=== PATIENT | female | born 1935 | race Caucasian/White ===

== ENCOUNTER 2016-09-06 13:02 | Inpatient (IN) | payer MEDICARE, BC ==
[~2016-09-06] VITALS: Ht 165.1 cm; Wt 90.0 kg
[~2016-09-06 13:02] MED LIST: ADLT ASA LOW81 MG PO; ADVAIR DISK1 INH; ADVAIR DISKU PO; ADVAIR HF1 INH; ADVAIR HFA; ALBUTEROL S2.5 MG/.5 IN; ALPHA LIPOIC100 MG PO; AMIODARONE200 MG PO; AREDS 2 PO; ASA/BUT/CAF1; BENAZEPRIL5 M1 PO; BENAZEPRIL5 MG PO; BUMETANIDE1 MG PO; CALCIUM 500 + D PO; CETIRIZINE PO; CINNAMON500 MG PO; CIPROFLOXACN500 MG PO; CLARITIN10 MG PO; COQ-10100 MG PO; COQ-10200 MG PO; COQ10200 MG OR; COUMADIN1 MG PO; COUMADIN5 MG PO; COUMADIN7.5 MG PO; CYANOCOBALAM1000 MCG IM; DILTIAZEM CD120 MG PO; DILTIAZEM HCL360 M2 PO; DILTIAZEM HCL360 MG PO; DILTIAZEM120 MG PO; DOXYCYCL HYC100 MG OR; FISH OIL1000 MG PO; FLAGYL ER750 MG PO; FLEXERIL PO; FLONASE 60 DOS0.05 %; FLONASE NASAL50 MCG; GABAPENTIN300 MG PO; GABAPENTIN600 MG PO; GLIPIZIDE ER2.5 MG PO; HUMALOG100 MG/ML SC; IMDUR60 MG PO; ISOSORB MONO120 MG PO; ISOSORB MONO30 MG PO; JANUVIA50 MG PO; KLOR-CON 1010 ME1 PO; LASIX 20 MG20 MG/TAB PO; LEVAQUIN500 MG PO; LORTAB 7.57.5 MG PO; LOSARTAN POT50 MG PO; MACROBID100 MG PO; METFORMIN HCL1000 MG PO; METFORMIN500 M1 PO; METFORMIN500 M2 PO; METO25TAB PO; METO50TA52 PO; METOPROL TAR25 MG PO; MOBIC7.5 MG PO; NITROLINGUAL SPRAY D IN; NORVASC2.5 M1 PO; NOVOLIN N1 ML SC; NOVOLO1 SC; NOVOLOG MIX100 U/ML SC; NYSTATIN100000 M3 TOP; OCUVITE PO; PEPCID20 MG PO; PLAVIX75 MG PO; PRAVACHOL20 MG PO; PRAVACHOL80 MG PO; PRAVASTATIN20 MG PO; PRAVASTATIN40 MG PO; PRESERVISION AREDS PO; PRESERVISION PO; PRESERVISION/LUTEIN PO; PRILOSEC40 MG PO; PROAIR HFA IN; PROCRIT4000 UNIT/ SC; PROVENTIL HFA; PROVENTIL HFA IN; SEPTRA DS1 TAB PO; SILVADENE1 % EX; STATINS; SYNTHROID125 MCG PO; SYNTHROID200 MCG; SYNTHROID200 MCG PO; TRICOR145 MG PO; ULTRAM50 MG PO; VITAMIN D2000 UNI1 PO; VITAMIN D50000 UNIT PO; ZANTAC 150 PO; ZETIA10 MG PO; ZOFRAN ODT4 MG SL; ZYRTEC10 M2 PO; ZYRTEC10 MG PO; [UNRECOGNIZED DRUG - OTHER] PO; [UNRECOGNIZED DRUG - OTHER] SL; [UNRECOGNIZED DRUG - SUPPLY]
[2016-09-06 13:15] VITALS: BP 148/74
--- NOTE | 2016-09-06 13:22 | NUR ---
PT ARRIVED ON UNIT VIA W/C, ALERT AND ORIENTED X 3, ORIENTED TO ROOM AND CALL URIAS, SETTLED IN BED, TELE MONITOR PLACED, C/O LOWER BACK PAIN @ 04/14, WILL CONTINUE TO MONITOR.
[2016-09-06 14:27] LABS: HEMATOCRIT 30.6 % (37.0-47.0); HEMOGLOBIN 9.6 g/dl (12.0-16.0); MEAN CORPUSCULAR HGB 31.1 pG CALC (26.0-32.0); MEAN CORPUSCULAR HGB CONC 31.4 g/L CALC (32.0-36.0); RED BLOOD COUNT 3.09 mill/uL (4.20-5.60); RED CELL DISTRI WIDTH 13.2 % (11.5-15.5)
[2016-09-06 14:41] LABS: ALBUMIN 3.9 g/dL (3.2-5.0); BILIRUBIN, TOTAL 0.3 mg/dL (0.0-1.4); CALCIUM 9.4 mg/dL (8.4-10.2); CREATININE 2.1 mg/dL (0.5-1.0); POTASSIUM 4.6 mmol/l (3.5-5.1); TOTAL PROTEIN 7.1 g/dL (6.3-8.2)
--- NOTE | 2016-09-06 16:29 | NUR ---
PT WENT OFF UNIT FOR PROCEDURE AND RETURNED WITH LARGE HEMATOMA TO [facility] WHERE IV CATHETER HAD BEEN PREVIOUSLY PLACED, STATED SHE BUMPED HAND ON CHAIR DURING TRANSFER. WARM COMPRESS APPLIED TO SITE, WILL CONTINUE TO MONITOR.
[2016-09-06] MEDS ORDERED: WARFARIN2.5 MG PO (17:21)
[2016-09-06] MEDS ORDERED: KLOR-CON 1010 MEQ PO (17:30)
[2016-09-06] MEDS ORDERED: AMLODIPINE5 MG PO (17:30)
[2016-09-06] MEDS ORDERED: HYDROCO/APAP1 TA9 PO (17:31)
[2016-09-06] MEDS ORDERED: LEXAPRO10 MG PO (17:34)
[2016-09-06] MEDS ORDERED: SINEMET 10/1001 TAB PO (17:34)
[2016-09-06] MEDS ORDERED: PRILOSEC20 MG PO (17:34)
[2016-09-06 19:24] VITALS: BP 125/56
--- NOTE | 2016-09-06 20:00 | NUR ---
PATIENT RESTING IN BED AT THIS TIME. AWAKE ALERT AND ORIENTEDX3. PATIENT WITH HEP LOCK TO RIGHT HAND-SITE APPEARS HEALTHY AT THIS TIME. INSTRUCTED PATIENT THAT WE NEED URINE SPEC WHEN SHE IS ABLE TO PROVIDE. VERBALIZES UNDERSTANDING. SAFETY PRECAUTIONS REINFORCED. CALL LIGHT IN REACH. WILL CONT TO MONITOR.
--- NOTE | 2016-09-06 23:23 | NUR ---
URINE SPEC OBTAINED AND SENT TO LAB. PATIENT IS VOIDING YELLOW URINE. NO COMPLAINTS AT THIS TIME. CALL LIGHT IN REACH. WILL CONT TO MONITOR.
[2016-09-06 23:24] VITALS: BP 104/60
[2016-09-07 01:00] LABS: URINE BILIRUBIN - DIPSTICK NEGATIVE (NEGATIVE); URINE BLOOD DIPSTICK TRACE-INTACT (NEGATIVE); URINE CLARITY TURBID; URINE COLOR YELLOW; URINE GLUCOSE - DIPSTICK NEGATIVE (NEGATIVE); URINE KETONE NEGATIVE (NEGATIVE); URINE LEUK ESTERASE MODERATE (Negative); URINE NITRITE - DIPSTICK POSITIVE (Negative); URINE PROTEIN - DIPSTICK TRACE mg/dL (NEG-TRACE); URINE UROBILINOGEN - DIPSTICK 0.2 E.U./dL (0.2)
--- NOTE | 2016-09-07 01:47 | NUR ---
PATIENT RESTING IN BED-C/O SEVERE BACK AND LOWER EXTREMITY PAIN. 8/10 ON PAIN SCALE. PATIENT MEDICATED WITHLORTAB 5/325MG PO ORDERED. SAFETY PRECAUTIONS REINFORCED. CALL LIGHT IN REACH. WILL CONT TO MONITOR
[2016-09-07 01:55] LABS: URINE BACTERIA MANY hpf; URINE SQUAMOUS EPITHELIAL CELL FEW EPI/hpf (0-FEW); URINE WBC 50-100 WBC/hpf (0-5)
[2016-09-07 03:47] VITALS: BP 124/63
--- NOTE | 2016-09-07 04:00 | NUR ---
PATIENT APPEARS SLEEPING ON HER SIDE. CALL LIGHT IN REACH. WILL CONT TO MONITOR.
[2016-09-07 06:05] LABS: HEMATOCRIT 28.3 % (37.0-47.0); HEMOGLOBIN 8.9 g/dl (12.0-16.0); MEAN CELL VOLUME 100.4 fL CALC (80.0-100.0); MEAN CORPUSCULAR HGB 31.6 pG CALC (26.0-32.0); MEAN CORPUSCULAR HGB CONC 31.4 g/L CALC (32.0-36.0); RED BLOOD COUNT 2.82 mill/uL (4.20-5.60); RED CELL DISTRI WIDTH 13.2 % (11.5-15.5)
--- NOTE | 2016-09-07 07:22 | NUR ---
REPORT RECEIVED FROM WOLFGANG TURNER. PT SUPINE IN BED. DENIES PAIN. REPORTING OF CONCERNS ENCOURAGED. VSS. ASSESSMENT COMPLETED AT THIS TIME. PLAN OF CARE DISCUSSED. CALL LIGHT REVIEWED AND IN REACH. FALL PRECAUTIONS REINFORCED. PT STATES UNDERSTANDING.
[2016-09-07 07:29] VITALS: BP 128/56
[2016-09-07 08:35] LABS: INTERNATIONAL NORMALIZED RATIO 4.1 RATIO (0.7-1.3)
[2016-09-07 08:36] LABS: PROTHROMBIN TIME 48.3 SECONDS (9.0-12.5)
[2016-09-07 10:29] LABS: CALCIUM 9.3 mg/dL (8.4-10.2); CREATININE 1.7 mg/dL (0.5-1.0); POTASSIUM 4.4 mmol/l (3.5-5.1)
[2016-09-07 11:46] VITALS: BP 108/45
--- NOTE | 2016-09-07 12:15 | NUR ---
PT SITTING IN CHAIR AT BEDSIDE. DENIES PAIN. REPORTS NAUSEA IMPROVED SINCE PHENERGAN PO ADMINISTRATION. CALL LIGHT WITHIN REACH.
[2016-09-07 16:08] VITALS: BP 132/46
[2016-09-07 16:49] LABS: CHOLESTEROL HDL RATIO 4.3 (<4.4 (CALC))
--- NOTE | 2016-09-07 17:43 | NUR ---
PT'S HOME MEDS SENT HOME WITH PT'S DAUGHTER.
[2016-09-07 19:25] VITALS: BP 140/66
--- NOTE | 2016-09-07 19:40 | NUR ---
PT OOB AMBULATING IN ROOM WITH STEADY GAIT. A/O X3, DENIES PAIN. ORIENTED TO USE CALL LIGHT FOR ASSISTANCE, WILL CONTINUE TO MONITOR.
[2016-09-07 23:25] VITALS: BP 123/52
--- NOTE | 2016-09-08 00:33 | NUR ---
PT RESTING IN BED WITH EYES CLOSED, RESPIRATIONS EVEN AND UNLABORED. CALL LIGHT IN REACH. DENIES PAIN.
[2016-09-08 01:11] VITALS: BP 175/102
[2016-09-08 04:30] VITALS: BP 149/66
[2016-09-08 05:48] LABS: INTERNATIONAL NORMALIZED RATIO 5.5 RATIO (0.7-1.3)
[2016-09-08 05:49] LABS: CALCIUM 9.1 mg/dL (8.4-10.2); CREATININE 1.6 mg/dL (0.5-1.0); HEMATOCRIT 27.8 % (37.0-47.0); HEMOGLOBIN 8.7 g/dl (12.0-16.0); MEAN CELL VOLUME 99.6 fL CALC (80.0-100.0); MEAN CORPUSCULAR HGB 31.2 pG CALC (26.0-32.0); MEAN CORPUSCULAR HGB CONC 31.3 g/L CALC (32.0-36.0); POTASSIUM 4.6 mmol/l (3.5-5.1); RED BLOOD COUNT 2.79 mill/uL (4.20-5.60); RED CELL DISTRI WIDTH 13.2 % (11.5-15.5)
--- NOTE | 2016-09-08 06:34 | NUR ---
OOB AMBULATING TO BATHROOM WITH STEADY GAIT SHORTLY AFTER PT CALLING FOR ASSISTANCE STATES IV JUST CAME OUT. IV TO RH FOUND DISLODGED WITH CATH TIP INTACT, BLEEDING NOTICED, PRESSURE APPLIED TO RH.
--- NOTE | 2016-09-08 07:00 | NUR ---
SHIFT CHANGE REPORT FROM SEHLBY LUND AWAKE ALERT AND ORIENTED SITTING UP AT BEDSIDE, NO C/O DISCOMFORT, IV ABT INFUSING, CALL URIAS IN REACH.
--- NOTE | 2016-09-08 08:15 | NUR ---
DISCUSSED DIET WITH PT AND ADDRESSED WITH MD, PT READY TO TOLERATE SOLID FOODS, FOOD ORDERED AND PT TOLERATED WELL.
[2016-09-08 09:02] VITALS: BP 129/63
--- NOTE | 2016-09-08 12:00 | NUR ---
SITTING UP AT BEDSIDE HAVING MEAL, ALL NEEDS ADDRESSED, CALL URIAS IN REACH.
--- NOTE | 2016-09-08 13:44 | NUR ---
PATIENT AMBULATED WITH QUAD CANE TO THE HALLWAY 75 FEET X 2 AND PERFORMED SUPINE EXERCISES IN BED WHILE MONITORING FOR 02 SATURATION. SHE WAS ABLE TO TOLERATE THE TREATMENT SESSION WITHOUT DISTRESS. PATIENT WAS GIVEN CONTACT GUARD DURING GAIT AND STANDBY ASSIST IN TRANSFERS. WEAKNESS OF THE LOWER EXTREMITIES DURING THEREX WAS NOTED WITH DECONDITIONING. NO ADVERSE EFFECTS HAPPENED.
[2016-09-08 15:55] VITALS: BP 132/67
--- NOTE | 2016-09-08 16:00 | NUR ---
RESTING IN BED FAMILY MEMBERS AND FRIENDS VISITING, ALL NEEDS ADDRESSED, CALL URIAS IN REACH.
[2016-09-08 19:10] VITALS: BP 140/67
--- NOTE | 2016-09-08 20:10 | NUR ---
SITTING ON SIDE OF BED TALKING WITH FAMILY MEMBERS. A/O X3, DENIES PAIN OR DISCOMFORT. ENCOURAGED TO USE CALL LIGHT FOR ASSISTANCE, WILL CONTINUE TO MONITOR.
[2016-09-08 20:56] LABS: HEMATOCRIT 31.1 % (37.0-47.0); HEMOGLOBIN 9.9 g/dl (12.0-16.0); MEAN CELL VOLUME 98.7 fL CALC (80.0-100.0); MEAN CORPUSCULAR HGB 31.4 pG CALC (26.0-32.0); MEAN CORPUSCULAR HGB CONC 31.8 g/L CALC (32.0-36.0); RED BLOOD COUNT 3.15 mill/uL (4.20-5.60); RED CELL DISTRI WIDTH 13.3 % (11.5-15.5)
[2016-09-09 00:08] VITALS: BP 156/65
--- NOTE | 2016-09-09 01:24 | NUR ---
PT RESTING ON LEFT SIDE WITH EYES CLOSED, RESPIRAITONS EVEN AND UNLABORED. CALL LIGHT IN REACH.
--- NOTE | 2016-09-09 01:35 | NUR ---
PT C/O TELE ELECTRODES FEELING ITCHY, ROBERTO KRUSE REMOVED ELECTRODES AND HELPED PT WASH CHEST, REFUSES SHOWER AT THIS TIME. NEW ELECTRODES APPLIED.
[2016-09-09 03:20] VITALS: BP 149/64
--- NOTE | 2016-09-09 05:28 | NUR ---
MORNING BLOOD WORK DRAW BY COMPUTER APPLICATIONS INSTRUCTOR, TOLERATED WELL.
[2016-09-09 06:05] LABS: INTERNATIONAL NORMALIZED RATIO 1.9 RATIO (0.7-1.3)
[2016-09-09 06:09] LABS: CALCIUM 9.1 mg/dL (8.4-10.2); CREATININE 1.8 mg/dL (0.5-1.0); POTASSIUM 4.4 mmol/l (3.5-5.1)
--- NOTE | 2016-09-09 07:00 | NUR ---
RECEIVED BEDSIDE REPORT FROM ASHELY JARQUIN. SITTING ON EDGE OF BED. RESPS EVEN AND UNLABORED ON ROOM AIR, TELE MONITOR IN PLACE. DENIES PAIN OR DISCOMFORT. PLAN OF CARE DISCUSSED. SAFETY PRECAUTIONS REINFORCED. BED IN LOWEST POSITION WITH WHEELS LOCKED. CALL LIGHT WIHTIN REACH. ENCOURAGED PT TO CALL FOR ANY NEEDS.
[2016-09-09 07:42] VITALS: BP 144/59
[2016-09-09 11:09] VITALS: BP 142/45
--- NOTE | 2016-09-09 12:00 | NUR ---
SITTING IN BEDSIDE CHAIR. RESPS EVEN AND UNLABORED ON ROOM AIR, TELE MONITOR IN PLACE. FAMILY AT BEDSIDE. DENIES PAIN OR DISCOMFORT. REPORTS 13 EPISODES OF DIARRHEA SINCE THIS AM. CALL LIGHT WITHIN REACH. WILL CONTINUE TO MONITOR.
--- NOTE | 2016-09-09 15:50 | NUR ---
DR ZEPEDA IN WITH PT, NEW ORDERS RECEIVED.
[2016-09-09 16:21] VITALS: BP 133/63
[2016-09-09 17:30] LABS: C. DIFFICILE TOXIN A&B NEGATIVE (NEGATIVE)
[2016-09-09 19:20] VITALS: BP 131/68
--- NOTE | 2016-09-09 19:45 | NUR ---
PATIENT SITTING UP ON THE SIDE OF THE BED WITH VISITOR AT BEDSIDE. PATIENT IS AWAKE ALERT AND ORIENTEDX3. PATIENT WITH NO COMPLAINTS AT THIS TIME. LEFT HAND ECCYMOTIC. LEFT FOREARM HEP LOCK INTACT AND APPEARS HEALTHY AT THIS TIME. SAFETY PRECAUTIONS REINFORCED. CALLL LIGHT IN REACH. WILL CONT TO MONITOR.
--- NOTE | 2016-09-09 23:57 | NUR ---
PATIENT APPEARS SLEEPING AT THIS TIME WITH EYES CLOSED. CALL LIGHT IN REACH. WILL CONT TO MONITOR.
[2016-09-10 00:37] VITALS: BP 111/68
--- NOTE | 2016-09-10 04:00 | NUR ---
PATIENT APPEARS SLEEPING WITH SHEETS OVER HER HEAD. CALL LIGHT IN REACH. WILL CONT TO MONITOR.
[2016-09-10 04:49] LABS: HEMATOCRIT 28.1 % (37.0-47.0); HEMOGLOBIN 8.8 g/dl (12.0-16.0); MEAN CELL VOLUME 99.3 fL CALC (80.0-100.0); MEAN CORPUSCULAR HGB 31.1 pG CALC (26.0-32.0); MEAN CORPUSCULAR HGB CONC 31.3 g/L CALC (32.0-36.0); RED BLOOD COUNT 2.83 mill/uL (4.20-5.60); RED CELL DISTRI WIDTH 13.2 % (11.5-15.5)
[2016-09-10 05:05] VITALS: BP 120/82
[2016-09-10 05:12] LABS: INTERNATIONAL NORMALIZED RATIO 1.2 RATIO (0.7-1.3); PROTHROMBIN TIME 13.4 SECONDS (9.0-12.5)
[2016-09-10 05:33] LABS: ALBUMIN 3.2 g/dL (3.2-5.0); CALCIUM 8.7 mg/dL (8.4-10.2); CREATININE 1.8 mg/dL (0.5-1.0); MAGNESIUM 1.9 mg/dL (1.6-2.3); POTASSIUM 4.3 mmol/l (3.5-5.1)
--- NOTE | 2016-09-10 07:00 | NUR ---
RECEIVED BEDSIDE REPORT FROM YUE GOSS. RESTING IN BED WITH EYES OPEN. RESPS EVEN AND UNLABORED ON ROOM AIR, TELE MONITOR IN PLACE. REPORTS HAVING HAD A GOOD NIGHTS SLEEP. DENIES PAIN OR DISCOMFORT. PLAN OF CARE DISCUSSED. SAFETY PRECAUTIONS REINFORCED. BED IN LOWEST POSITION WITH WHEELS LOCKED. CALL LIGHT WITHIN REACH. ENCOURAGED PT TO CALL FOR ANY NEEDS.
[2016-09-10 08:26] VITALS: BP 136/64
[2016-09-10 08:32] VITALS: BP 136/64
--- NOTE | 2016-09-10 11:00 | NUR ---
DR ZEPEDA IN WITH PT, NEW ORDERS RECEIVED.
[2016-09-10] MEDS ORDERED: WARFARIN2.5 MG PO (11:15)
--- NOTE | 2016-09-10 12:56 | NUR ---
Discharge instructions given. Patient verbalizes understanding of same. Discharged in stable condition via Wheelchair to Home with family. All belongings sent with pt.
== END 2016-09-10 12:55 | disposition home or self-care (01) | DRG 812 ==
LOC: MS2 13:02
PROVIDERS: Internal Medicine; Nurse Practitioner Family; ADMIT Internal Medicine; ATTEND Internal Medicine
DX: D50.0 Iron deficiency anemia secondary to blood loss (chronic) (principal); N17.9 Acute kidney failure, unspecified; E11.22 Type 2 diabetes mellitus with diabetic chronic kidney disease; I69.951 Hemiplegia and hemiparesis following unspecified cerebrovascular disease affecting right dominant side; J98.11 Atelectasis; D63.1 Anemia in chronic kidney disease; N18.3 Chronic kidney disease, stage 3 (moderate); I25.10 Atherosclerotic heart disease of native coronary artery without angina pectoris; I48.91 Unspecified atrial fibrillation; M19.90 Unspecified osteoarthritis, unspecified site; I12.9 Hypertensive chronic kidney disease with stage 1 through stage 4 chronic kidney disease, or unspecified chronic kidney disease; J44.9 Chronic obstructive pulmonary disease, unspecified; E03.9 Hypothyroidism, unspecified; H35.30 Unspecified macular degeneration; K21.9 Gastro-esophageal reflux disease without esophagitis; E78.5 Hyperlipidemia, unspecified; N28.1 Cyst of kidney, acquired; R79.1 Abnormal coagulation profile; T45.515A Adverse effect of anticoagulants, initial encounter; R19.5 Other fecal abnormalities; Z86.010 Personal history of colon polyps; R82.71 Bacteriuria; Z95.5 Presence of coronary angioplasty implant and graft; Z87.891 Personal history of nicotine dependence; Z95.1 Presence of aortocoronary bypass graft; Z79.01 Long term (current) use of anticoagulants
CPT/HCPCS: G0328; J0885

== ENCOUNTER 2016-10-14 11:18 | Inpatient (IN) | payer MEDICARE, BC ==
[~2016-10-14] VITALS: Ht 167.6 cm; Wt 100.0 kg
[~2016-10-14 11:18] MED LIST changes: +AMLODIPINE5 MG PO; +HYDROCO/APAP1 TA9 PO; +KLOR-CON 1010 MEQ PO; +LEXAPRO10 MG PO; +PRILOSEC20 MG PO; +SINEMET 10/1001 TAB PO; +WARFARIN2.5 MG PO
--- NOTE | 2016-10-14 11:30 | NUR ---
PT TO ROOM VIA EMS IN SIGNIFICANT RESPIRATORY DISTRESS.
--- NOTE | 2016-10-14 11:43 | NUR ---
REPIRATORY AT BEDSIDE. PATIENT RESTING ON STRETCHER CONNECTED TO BIPAP. RESPIRATIONS ARE IMPROVED, EVEN AND UNLABORED. ABLE TO RESPOND TO QUESTIONS, ALERT AND ORIENTED X3, PERRLA.
[2016-10-14 12:03] LABS: HEMOGLOBIN 10.4 g/dl (12.0-16.0); IMMATURE GRANULOCYTES 0.9 % (0.0-1.0); MEAN CELL VOLUME 98.8 fL CALC (80.0-100.0); MEAN CORPUSCULAR HGB 30.2 pG CALC (26.0-32.0); MEAN CORPUSCULAR HGB CONC 30.6 g/L CALC (32.0-36.0); PLATELET COUNT 483 thou/uL (130-400); RED BLOOD COUNT 3.44 mill/uL (4.20-5.60); RED CELL DISTRI WIDTH 13.8 % (11.5-15.5)
[2016-10-14 12:06] LABS: ALBUMIN 4.2 g/dL (3.2-5.0); BILIRUBIN, TOTAL 0.4 mg/dL (0.0-1.4); CALCIUM 9.7 mg/dL (8.4-10.2); CREATININE 1.7 mg/dL (0.5-1.0); POTASSIUM 4.6 mmol/l (3.5-5.1); TOTAL PROTEIN 7.4 g/dL (6.3-8.2)
[2016-10-14 12:31] LABS: BAND 5 % (0-8); MANUAL DIFFERENTIAL YES
--- NOTE | 2016-10-14 12:55 | NUR ---
PATIENT RESTING ON STRETCHER ON BIPAP, A&O X3, MEDICATED PER MD ORDER. WILL CONTINUE TO MONITOR.
--- NOTE | 2016-10-14 13:40 | NUR ---
ORAL CARE DONE, ASSISTED TO BSC, NO DISTRESS NOTED AT THIS TIME.
--- NOTE | 2016-10-14 15:20 | NUR ---
PT RESTING ON STRETCHER, HOB ADJUSTED AND WARM BLANKET GIVEN FOR COMFORT. INFORMED OF PLAN OF CARE. VERBALIZED UNDERSTANDING, WILL CONTINUE TO MONITOR.
[2016-10-14 17:05] LABS: URINE BILIRUBIN - DIPSTICK NEGATIVE (NEGATIVE); URINE BLOOD DIPSTICK TRACE-LYSED (NEGATIVE); URINE CLARITY CLEAR; URINE COLOR YELLOW; URINE GLUCOSE - DIPSTICK NEGATIVE (NEGATIVE); URINE KETONE NEGATIVE (NEGATIVE); URINE LEUK ESTERASE NEGATIVE (NEGATIVE); URINE NITRITE - DIPSTICK NEGATIVE (Negative); URINE PROTEIN - DIPSTICK NEGATIVE (NEG-TRACE); URINE UROBILINOGEN - DIPSTICK 0.2 E.U./dL (0.2)
--- NOTE | 2016-10-14 17:19 | NUR ---
REPORT CALLED TO BRITTON RESENDEZ.
--- NOTE | 2016-10-14 17:35 | NUR ---
PATIENT TRANSPORTED TO ICU VIA WHEELCHAIR ON PACKAGE DELIVERY DRIVER, ACCOMPANIED BY PLATING OPERATOR.
--- NOTE | 2016-10-14 17:36 | NUR ---
PATIENT ADMITTED TO ICU BED 5. PATIENT TRANSPORTED TO ROOM BY STRETCHER WHILE ON BIPAP BY STEPHAN GOSS AND TREVOR RT. PATIENT TRANSFERED TO BED BY STAFF. MONITOR PUT IN PLACE, VITAL SIGNS STABLE. PATIENT ORIENTED TO ROOM AND CALL SYSTEM. ADMISSION ASSESSMENT COMPLETED BY WALI GOSS.
[2016-10-14 18:03] VITALS: BP 153/67
[2016-10-14 18:43] LABS: INTERNATIONAL NORMALIZED RATIO 4.5 RATIO (0.7-1.3)
--- NOTE | 2016-10-14 18:52 | NUR ---
FAMILY MEMBER JUST BROUGHT IN MEDS, SENT TO PHARMACY.
[2016-10-14 18:56] LABS: PROTHROMBIN TIME 54.6 SECONDS (9.0-12.5)
[2016-10-14 19:00] VITALS: BP 152/63
--- NOTE | 2016-10-14 19:00 | NUR ---
awake. no acute resp distress. bipap cont. lunchroom monitor shows sinus rhythm. #20 rfa saline lock. sips po fluids given. bladder scan shows 565. up to bsc. voided well. dr brasher vs. fall precautions cont.
[2016-10-14 20:00] VITALS: BP 159/69
--- NOTE | 2016-10-14 20:00 | NUR ---
po meds given. bipap off @ present. sa02 93%. dr brasher called per rt. instructed may keep of bipap. o2 per nc began @ 2 l/m per rt. no resp difficulty.
[2016-10-14 21:00] VITALS: BP 139/74
--- NOTE | 2016-10-14 21:30 | NUR ---
refused advair inhaler. up to bsc per request. olesya well. requested neb tx. rt notified.
[2016-10-14 22:00] VITALS: BP 166/68
[2016-10-14 23:00] VITALS: BP 141/68
[2016-10-15] VITALS (7 sets, daily range): BP systolic 137–163; BP diastolic 61–75
--- NOTE | 2016-10-15 00:01 | NUR ---
eyes closed. no apparent distress. space engineer shows sinus rhythm. no chest pain.
--- NOTE | 2016-10-15 00:30 | NUR ---
lab here. blood drawn.
--- NOTE | 2016-10-15 01:10 | NUR ---
lab results rec'd. dr brasher notified. no new orders.
--- NOTE | 2016-10-15 02:00 | NUR ---
resting quietly. no apparent distress. fisher dip net shows sinus rhythm. o2 conts.
--- NOTE | 2016-10-15 06:30 | NUR ---
LAB HERE. BLOOD DRAWN.
[2016-10-15 06:58] LABS: HEMOGLOBIN 9.4 g/dl (12.0-16.0); IMMATURE GRANULOCYTES 0.8 % (0.0-1.0); MEAN CELL VOLUME 96.5 fL CALC (80.0-100.0); MEAN CORPUSCULAR HGB 30.2 pG CALC (26.0-32.0); MEAN CORPUSCULAR HGB CONC 31.3 g/L CALC (32.0-36.0); NEUT# 15.84 thou/uL (2.00-7.15); RED BLOOD COUNT 3.11 mill/uL (4.20-5.60); RED CELL DISTRI WIDTH 13.7 % (11.5-15.5)
[2016-10-15 07:52] LABS: CHOLESTEROL HDL RATIO 2.7 (<4.4 (CALC))
[2016-10-15 09:13] LABS: INTERNATIONAL NORMALIZED RATIO 4.8 RATIO (0.7-1.3); PROTHROMBIN TIME 58.9 SECONDS (9.0-12.5)
--- NOTE | 2016-10-15 09:15 | NUR ---
PT COMPUTER SUPPORT TECHNICIAN LIGHT REQUESTING TO USE BSC. PT STATES "I HAVENT HAD A BM IN 3 DAYS." SAFELY ASSISTED TO SITTING POSITION, CALL LIGHT PROVIDED, INSTRUCTED PT TO CALL WHEN FINISHED. STATES UNDERSTANDING. AWARE, JOHN AND TERE ORDERED.
[2016-10-15 09:27] LABS: CALCIUM 9.4 mg/dL (8.4-10.2); CREATININE 1.7 mg/dL (0.5-1.0); POTASSIUM 4.4 mmol/l (3.5-5.1)
--- NOTE | 2016-10-15 12:00 | NUR ---
PT C/O CP. MD NOTIFIED, STAT EKG, AND TROPONIN. NITRO DRIP ORDERED. FAMILY NOTIFIED (BRUCE) CALLED.
--- NOTE | 2016-10-15 12:23 | NUR ---
CASE MANAGEMENT AND MD ON UNIT, INITIATING ATTEMPT TO TRANSFER PT TO [facility]
--- NOTE | 2016-10-15 13:25 | NUR ---
PT TRANSFER RESCINDED RELATED TO HAZOURDOUS WEATHER. MD, CARDIOLOGY, PT AND FAMILY AWARE. PLAN OF CARE DISCUSSED. PT WILL STAY IN ICU ON NITRO DRIP, AND WILL RE-EVALUATE ONCE WEATHER CONDITIONS HAVE BECOME BETTER.
--- NOTE | 2016-10-15 16:30 | NUR ---
PT TRANSPORTED VIA BED WITH 2 NURSES STAFF AND RT. TO ROOM 16 IN ER. PT TOLERATED TRANSPORT WITHOUT COMPLAINTS. SAFELY ASSISTED AND RE-ORIENTATED TO ROOM. CALL LIGHT REVIEWED. PT STATES UNDERSTANDING. INSTRUCTED PT TO CALL FOR ASSISTANCE, PT VERBALIZES UNDERSTANDING.
--- NOTE | 2016-10-15 19:00 | NUR ---
report rec'd per jenny. remains as icu pt in er 16 as hurricaine susan is taking place. denies chest pain. lunchroom monitor shows sinus rhythm. #24 rt hand. ntg infusing @ 7mcg, ns infusing @ 20cchr. po fluids taken well. voids per bsc. fall precautions cont.
--- NOTE | 2016-10-15 22:00 | NUR ---
up to bsc. had small liq brown stool. assisted to bed. olesya well.
[2016-10-16] VITALS (18 sets, daily range): BP systolic 126–164; BP diastolic 51–83
--- NOTE | 2016-10-16 00:01 | NUR ---
eyes closed. no distress. electronic device monitor shows sinus rhythm.
--- NOTE | 2016-10-16 01:00 | NUR ---
returned to icu5 per bed post hurricane susan.
--- NOTE | 2016-10-16 02:00 | NUR ---
watching tv. no c/o voiced. hris coordinator shows sinus rhythm.
--- NOTE | 2016-10-16 04:30 | NUR ---
up to bsc. had mod amt black loose stool
--- NOTE | 2016-10-16 05:33 | NUR ---
lab here. blood drawn.
[2016-10-16 06:05] LABS: CALCIUM 9.2 mg/dL (8.4-10.2); CREATININE 1.8 mg/dL (0.5-1.0); POTASSIUM 4.2 mmol/l (3.5-5.1)
--- NOTE | 2016-10-16 08:19 | NUR ---
PATIENT SITTING UP ON SIDE OF BED EATING BREAKFAST. ASSESSMENT COMPLETED AT THIS TIME. RESP EVEN AND UNLABORED. NO S/S OF DISTRESS NOTED. PATIENT DENIES ANY NEEDS OR PAIN. CALL LIGHT IN REACH. ENCOURAGED TO CALL FOR ANY NEEDS. WILL CONTINUE TO MONITOR.
[2016-10-16 08:23] LABS: INTERNATIONAL NORMALIZED RATIO 4.7 RATIO (0.7-1.3); PROTHROMBIN TIME 57.4 SECONDS (9.0-12.5)
--- NOTE | 2016-10-16 10:04 | NUR ---
PATIENT SITTING IN BED. RESP EVEN AND UNLABORED. NO S/S OF DISTRESS NOTED. PATIENT DENIES ANY NEEDS OR PAIN. VISITORS AT BEDSIDE. CALL LIGHT IN REACH. ENCOURAGED TO CALL FOR ANY NEEDS.
--- NOTE | 2016-10-16 10:50 | NUR ---
RESUMED PT CARE, PT UP TO BSC INDEPENDENTLY, THEN BACK TO BED, REPOSITIONED FOR COMFORT, CALL URIAS WITHIN REACH, REQUESTING TO TAKE A NAP AT THIS TIME, CALL URIAS WITHIN REACH
--- NOTE | 2016-10-16 12:38 | NUR ---
COVERAGE GIVEN ORDERED, FOR ACCU CHECK, SITTING UP ON EDGE OF BED INDEPENDENTLY, CALL URIAS WITHIN REACH, REPOSITIONS SELF FOR COMFORT.
--- NOTE | 2016-10-16 13:24 | NUR ---
PT GETS UP TO BSC INDEPENDENTLY CALLS FOR ASSISTANCE WITH EQUIPMENT, TOLERATES ACTIVITY WITHOUT INCIDENT.
--- NOTE | 2016-10-16 15:00 | NUR ---
PT OOB TO BSC, PERFORMED BATH ON SELF WITH MINIMAL ASSISTANCE REQUIRED, LINENS CHANGED, ORAL CARE PROVIDED, AND PT ASSISTED BACK TO BED, WITH MINIMAL ASSIST, TOLERATED ACITIVY WELL, CALL URIAS WITH IN REACH
--- NOTE | 2016-10-16 15:49 | NUR ---
IN TO SEE PATIENT, DAUGHTER AT BEDSIDE, PLAN OF CARE DISCUSSED, WILL CONTINUE TO MONITOR.
--- NOTE | 2016-10-16 16:19 | NUR ---
DAUGHTER LEAVING AT THIS TIME, LEFT HER CELL PHONE, HER PHONE FAST FOOD ASSISTANT RESTAURANT MANAGER AND SOME CLEAN UNDERWAR PER PT REQUEST, DAUGHTER TOOK PURSE BACK HOME AND ID AND INSURANCE CARD, HOME WITH HER.
--- NOTE | 2016-10-16 16:54 | NUR ---
pt up to bsc, call brito within reach
--- NOTE | 2016-10-16 18:37 | NUR ---
SET UP ASSIST PROVIDED FOR PM MEAL, TOLERATED MEAL WELL, UP TO BSC, CALL URIAS WITHIN REACH.
--- NOTE | 2016-10-16 18:50 | NUR ---
RECEIVED REPORT FROM JUAN ANTONIO HORAN RN. INTRODUCED SELF, PT SITTING ON SIDE OF BED, HAD A BLACK, LOOSE STOOL, STATES STARTED HAVING LOOSE BM'S SINCE YESTERDAY AFTERNOON, THIS IS THE 4TH BM TODAY, DENIES PAIN OR SOB, HAS NS AT KVO, NGT INFUSING AT 5MCG/MIN, PT DENIES CHEST PAIN, AFEBRILE, VSS, SPO2 95% ON ROOM AIR, REMOVED ZULEIKA HOSE PER PT REQUEST, NO DISTRESS NOTED, ATE 75% OF MEAL TRADE, ENCOURAGED TO CALL IF NEEDED, REINFORCED SAFETY MEASURES AND EXPLAINED PLAN OF CARE WELL MED SCHEDULE, PT VOICES UNDERSTANDING, WILL CONTINUE TO MONITOR, CALL URIAS IS AT REACH.
--- NOTE | 2016-10-16 19:20 | NUR ---
, SAM, IN PT ROOM ADMINISTERING A BREATHING TX.
--- NOTE | 2016-10-16 21:25 | NUR ---
MEDICATED WITH IMODIUM PER ORDERS, PT HAD X9BM TODAY, C/O ABDOMINAL PAIN, RATES IT AT 2/10, DESCRIBES IT "DISCOMFORT." RESP ARE EVEN AND UNLABORED, NO DISTRESS NOTED, AFEBRILE, VSS, WILL CONTINUE TO MONITOR.
--- NOTE | 2016-10-16 22:30 | NUR ---
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
--- NOTE | 2016-10-16 23:50 | NUR ---
FOUND PT SLEEPING IN BED WITH EYES CLOSED AND MOUTH OPEN, MOUTHBREATHER, PT DESAT TO 90% WHILE SLEEPING, PLACED 2LPM VIA NC IN MOUTH, NO DISTRESS NOTED, PT DENIES CHEST PAIN, NTG INFUSING AT 5MCG/MIN W/ NS KVO WITHOUT DIFFICULTY, IV SITE REMAINS INTACT FREE OF REDNESS AND EDEMA, DENIES NEEDS AT THIS TIME, ENCOURAGED TO CALL IF NEEDED, VSS. WILL CONTINUE TO MONITOR.
[2016-10-17] VITALS (12 sets, daily range): BP systolic 127–154; BP diastolic 51–80
--- NOTE | 2016-10-17 01:13 | NUR ---
PT UP TO THE COMMODE WITH MINIMUM ASSITANCE, HAD A SMALL BM, LOOSE, DARK BROWN, ASSISTED BACK TO BED, TOLERATED ACTIVITY WELL, DENIES CHEST PAIN, C/O TENDER ABDOMENT IN X4QUAD, NO DISTRESS NOTED, WILL CONTINUE TO MONITOR, ENCOURAGED TO CALL IF NEEDED. CALL URIAS AT REACH.
--- NOTE | 2016-10-17 01:56 | NUR ---
PT RESTING QUIETLY IN BED WITH EYES CLOSED, AUDIBLE SNORING, AROUSES TO PHYSICAL OR VERBAL STIMULI, VOICES NO COMPLAINTS, DESATS TO 90% WHEN SLEEPING, SPO2 95% 2LPM VIA NC IN NOSE, RESP ARE EVEN AND UNLABORED, SB TO SR, HR 58-60 WHEN SLEEPING, VSS, CALL URIAS AT REACH.
--- NOTE | 2016-10-17 04:00 | NUR ---
PT VOICES NO COMPLAINTS, IV SITE IS PATENT INFUSING NTG AT 5MCG/MIN AND NS KVO, NO S/S OF INFILTRATION OR EXTRAVASATION NOTED, VSS, NO DISTRESS NOTED, RESP ARE EVEN AND UNLABORED, CALL URIAS AT REACH.
--- NOTE | 2016-10-17 04:38 | NUR ---
ASSISTED PT TO BSC, HAD A DARK BROWN, LOOSE, SMALL BM, AUDIBLE HYPERACTIVE BS NOTED, C/O TENDERNESS IN ABD, WHEN ASKED HOW WOULD YOU RATE YOUR PAIN FROM ZERO TO TEN, STATES "IS NOT PAIN, IS TENDERNESS." NO DISTRESS NOTED, DENIES CHEST PAIN, THIS IS THE 3RD BM SINCE ADMINISTERED IMODIUM @ [address] ASHFORD, PT STOOD ON STANDING SCALE FOR WEIGH CHECK, 99.1 KG, TOLERATED ACTIVITY WELL, NO DISTRESS NOTED, WILL CONTINUE TO MONITOR.
--- NOTE | 2016-10-17 06:18 | NUR ---
PT UP TO BSC, HAD A SMALL BM, LOOSE, DARK BROWN, COLLECTED A SAMPLE AND SENT TO LAB, MEDICATED PER EMAR, SITTING ON SIDE OF BED, NO DISTRESS NOTED, CALL URIAS AT REACH.
[2016-10-17 06:20] LABS: INTERNATIONAL NORMALIZED RATIO 3.3 RATIO (0.7-1.3); PROTHROMBIN TIME 39.2 SECONDS (9.0-12.5)
[2016-10-17 06:42] LABS: HEMATOCRIT 29.6 % (37.0-47.0); HEMOGLOBIN 9.3 g/dl (12.0-16.0); IMMATURE GRANULOCYTES 1.4 % (0.0-1.0); MEAN CELL VOLUME 95.8 fL CALC (80.0-100.0); MEAN CORPUSCULAR HGB 30.1 pG CALC (26.0-32.0); MEAN CORPUSCULAR HGB CONC 31.4 g/L CALC (32.0-36.0); NEUT# 12.88 thou/uL (2.00-7.15); RED BLOOD COUNT 3.09 mill/uL (4.20-5.60); RED CELL DISTRI WIDTH 13.8 % (11.5-15.5)
[2016-10-17 07:00] LABS: CALCIUM 8.9 mg/dL (8.4-10.2); CREATININE 1.8 mg/dL (0.5-1.0); POTASSIUM 4.1 mmol/l (3.5-5.1)
--- NOTE | 2016-10-17 07:10 | NUR ---
PT SITTING ON THE SIDE OF THE BED WATCHING TV, PT DENIES CP, A & O X3, PERRL, HR 70, RESP. 18, BP 149/64, O2 97% ON 2L O2 VIA NC, EXPIRATORTY LUNG SOUNDS IN ALL FIELD AND DIMINISHED IN RLL, 24G RH IV WITH NITRO & NS INFUSING AT PERSCRIBED RATE, AM ASSESSMENT COMPLETE, SEE INTERVENTIONS, SAFETY MEASURES REINFORCED, CALL URIAS WITHIN REACH
--- NOTE | 2016-10-17 07:15 | NUR ---
PT UP TO THE BSC, AMBULATES WITH A STRONG STEADY GAIT, CALL URIAS WITHIN REACH
--- NOTE | 2016-10-17 07:30 | NUR ---
SETUP ASSISTANCE PROVIDED WITH ONEYDA MUNOZ
--- NOTE | 2016-10-17 08:40 | NUR ---
PT SITTING ON THE SIDE OF THE BED WATCHING TV, VERBALIZES NO COMPLAINTS, CALL URIAS WITHIN REACH
--- NOTE | 2016-10-17 08:55 | NUR ---
VISITORS AT BEDSIDE
--- NOTE | 2016-10-17 09:30 | NUR ---
DR AYERS AT [facility] DISCUSSING PLAN OF CARE
--- NOTE | 2016-10-17 10:35 | NUR ---
PT SITTING ON THE SIDE OF THE BED TALKING TO VISITORS WHO ARE AT BEDSIDE, NO S/S OF DISTRESS, CALL URIAS WITHIN REACH
--- NOTE | 2016-10-17 11:03 | NUR ---
R.T. AT BEDSIDE GIVING PT A BREATHING TREATMENT
--- NOTE | 2016-10-17 11:30 | NUR ---
SETUP ASSISTANCE PROVIDED WITH LUNCH
--- NOTE | 2016-10-17 12:15 | NUR ---
PT TOLERATED LUNCH WELL, SITTING ON THE SIDE OF THE BED TALKING TO A VISITOR, NO S/S OF DISTRESS, CALL URIAS WITHIN REACH
--- NOTE | 2016-10-17 14:10 | NUR ---
CASE MANAGEMENT AT BEDSIDE DISCUSSING DISCHARGE PLANNING
--- NOTE | 2016-10-17 14:29 | NUR ---
PT SITTING ON THE SIDE OF THE BED TALKING ON HER CELL PHONE, NO S/S OF DISTRESS, CALL URIAS WITHIN REACH
--- NOTE | 2016-10-17 16:36 | NUR ---
PT LAYING IN BED RESTING WATCHING TV, PT DENIES ANY CHEST PAIN, CALL URIAS WITHIN REACH
--- NOTE | 2016-10-17 18:08 | NUR ---
R.T. AT BEDSIDE GIVING PT A BREATHING TREATMENT, PT TOLERATING WELL
--- NOTE | 2016-10-17 19:00 | NUR ---
sitting on side of bed. denies chest pain. o2 cont per nc. pipe line walker shows sinus rhythm. #24 rt hand. ns infusing @ 20cchr. po fluids taken well. voids per bsc. fall precautions cont.
--- NOTE | 2016-10-17 21:00 | NUR ---
refused advair inh.
[2016-10-18 00:01] VITALS: BP 132/76
--- NOTE | 2016-10-18 00:01 | NUR ---
eyes closed. no distress. cardiac nurse specialist shows sinus rhythm.
[2016-10-18 02:20] VITALS: BP 136/70
--- NOTE | 2016-10-18 02:20 | NUR ---
noise heard from room. pt yelled out "help." found pt on floor laying across bedside commode. admitted "i tried to get up & my foot was stuck in the sheet." no obvious fractures. has 2.5x3cm L shaped skin tear on lt knee. cleansed & steristrips applied.
--- NOTE | 2016-10-18 04:00 | NUR ---
eyes closed. no distress. monitor shows sinus rhythm.
--- NOTE | 2016-10-18 05:36 | NUR ---
lab here. blood drawn.
[2016-10-18 06:03] LABS: HEMATOCRIT 29.1 % (37.0-47.0); HEMOGLOBIN 9.4 g/dl (12.0-16.0); MEAN CELL VOLUME 94.2 fL CALC (80.0-100.0); MEAN CORPUSCULAR HGB 30.4 pG CALC (26.0-32.0); MEAN CORPUSCULAR HGB CONC 32.3 g/L CALC (32.0-36.0); RED BLOOD COUNT 3.09 mill/uL (4.20-5.60); RED CELL DISTRI WIDTH 13.6 % (11.5-15.5)
--- NOTE | 2016-10-18 06:15 | NUR ---
dr brasher notified of pts fall. no new orders.
[2016-10-18 06:19] LABS: CREATININE 1.9 mg/dL (0.5-1.0); MAGNESIUM 1.9 mg/dL (1.6-2.3); POTASSIUM 4.3 mmol/l (3.5-5.1)
[2016-10-18 06:20] LABS: INTERNATIONAL NORMALIZED RATIO 2.3 RATIO (0.7-1.3); PROTHROMBIN TIME 26.1 SECONDS (9.0-12.5)
--- NOTE | 2016-10-18 07:15 | NUR ---
PT SITTING UP IN BED WATCHING TV, A & O X3, PERRL HR 62, RESP. 20, BP 143/62, O2 98% ON 2L VIA NC, LUNGS CLEAR IN ALL ZHANG, 22G L FOREARM IV SALINE LOCKED, SKIN TEAR ON L KNEE FROM FALL WITH STERI STRIPS IN PLACE,AM ASSESSMENT COMPLETE, SEE INTERVENTIONS, SAFETY MEASURES REINFORCED, CALL URIAS WITHIN REACH
--- NOTE | 2016-10-18 07:20 | NUR ---
PT ASSISTED TO THE BSC AND BACK TO BED, PT AMBULATES WITH A STRONG STEADY GAIT, CALL URIAS WITHIN REACH
[2016-10-18 08:00] VITALS: BP 143/62
--- NOTE | 2016-10-18 08:40 | NUR ---
PT ASSISTED TO THE BSC AND BACK TO BED, PT TOLERATED WELL, CALL URIAS WITHIN REACH
--- NOTE | 2016-10-18 09:30 | NUR ---
SUPPLIES PROVIDED FOR PT TO GET WASHED UP, PT WASHED SELF AND PROVIDED ORAL CARE FOR SELF, REMINDED TO CALL FOR ASSISTANCE, CALL URIAS WITHIN REACH
--- NOTE | 2016-10-18 10:35 | NUR ---
DAUGHTER AT BEDSIDE
--- NOTE | 2016-10-18 11:40 | NUR ---
PT ASSISTED TO THE BSC AND BACK TO SITTING ON THE EDGE OF THE BED, PT AMBULATED WITH A STRONG STEADY GAIT, CALL URIAS WITHIN REACH
--- NOTE | 2016-10-18 11:50 | NUR ---
PT SITTING UP ON THE EDGE OF THE BED, TOLERATING WELL, SETUP ASSISTANCE PROVIDED WITH LUNCH TRAY
[2016-10-18 12:00] VITALS: BP 138/64
--- NOTE | 2016-10-18 12:15 | NUR ---
PT LAYING IN BED RESTING WITH EYES CLOSED, AROUSES EASILY TO VERBAL STIMULI, NO S/S OF DISTRESS, CALL URIAS WITHIN REACH
--- NOTE | 2016-10-18 15:45 | NUR ---
PT LAYING IN BED RESTING WATCHING TV, VERBALIZES NO COMPLAINTS, CALL URIAS WITHIN REACH
[2016-10-18 16:00] VITALS: BP 140/65
--- NOTE | 2016-10-18 19:15 | NUR ---
awake. watching tv. denies c/o. o2 cont per nc. quality assurance monitor shows sinus rhythm. #22 lfa saline lock. po fluids taken well. voids per bsc. instructed to call for assist. fall precautions cont.
[2016-10-18 20:00] VITALS: BP 151/61
--- NOTE | 2016-10-18 21:00 | NUR ---
xanax 0.25mg po per request for sleep.
--- NOTE | 2016-10-18 22:00 | NUR ---
eyes closed. no distress. model artists' shows sinus rhythm.
--- NOTE | 2016-10-19 00:01 | NUR ---
eyes closed. no apparent distress. onitor shows sinus rhythm.
--- NOTE | 2016-10-19 01:10 | NUR ---
up to bsc per self. instructed pt importance of calling for assist. pt verbalized understanding.
[2016-10-19 01:13] VITALS: BP 130/62
--- NOTE | 2016-10-19 02:00 | NUR ---
resting quietly. resps even & unlabored. no apparent distress.
--- NOTE | 2016-10-19 04:00 | NUR ---
lab here. blood drawn.
[2016-10-19 04:25] LABS: HEMATOCRIT 29.2 % (37.0-47.0); HEMOGLOBIN 9.3 g/dl (12.0-16.0); IMMATURE GRANULOCYTES 2.1 % (0.0-1.0); MEAN CELL VOLUME 94.2 fL CALC (80.0-100.0); MEAN CORPUSCULAR HGB CONC 31.8 g/L CALC (32.0-36.0); NEUT# 12.87 thou/uL (2.00-7.15); RED BLOOD COUNT 3.1 mill/uL (4.20-5.60); RED CELL DISTRI WIDTH 13.7 % (11.5-15.5)
[2016-10-19 04:38] LABS: CREATININE 1.9 mg/dL (0.5-1.0); POTASSIUM 4.7 mmol/l (3.5-5.1)
[2016-10-19 04:44] LABS: INTERNATIONAL NORMALIZED RATIO 1.5 RATIO (0.7-1.3); PROTHROMBIN TIME 16.9 SECONDS (9.0-12.5)
[2016-10-19 05:00] VITALS: BP 134/60
--- NOTE | 2016-10-19 05:48 | NUR ---
c/o "iv burning." iv d/c'd per request.
--- NOTE | 2016-10-19 06:45 | NUR ---
REPORT RECEIVED FROM BRITTON DAMON. PT RESTING ON LEFT SIDE, EASILY AROUSABLE. ACCUCHECK OBTAINED AND IS 243. PT DENIES PAIN, SOB, OR DISCOMFORT. STATES "I CANT GO HOME UNTIL I HAVE POWER, THE DOCTOR IS GOING TO LET ME STAY UNTIL IT COMES BACK ON." WHEN QUESTIONED ABOUT FAMILY BEING ABLE TO PROVIDE USP, PT STATES "OH THEY CANNOT PROVIDE THE SPACE." SAFETY REVIEWED, INSTRUCTED PT TO CALL FOR ASSISTANCE. STATES UNDERSTANDING.
[2016-10-19 10:00] VITALS: BP 133/64
--- NOTE | 2016-10-19 12:00 | NUR ---
PT SITTING AT SOB WEARING O2 AT 2L. DENIES SOB, PAIN OR DISCOMFORT. [facility] IN AT THIS TIME TO SEE PT, AND PROVIDE NEBULIZER MACHINE. DISCHARGE IN PROGRESS.
[2016-10-19] MEDS ORDERED: ASPIRIN ADULT L81 M2 PO (14:51)
[2016-10-19] MEDS ORDERED: ALPRAZOLAM0.25 MG PO (14:52)
[2016-10-19] MEDS ORDERED: PREDNISONE10 MG PO (14:52)
[2016-10-19] MEDS ORDERED: LORTAB 5-325 MG1 TAB PO (14:52)
[2016-10-19] MEDS ORDERED: NOVOLOG FL100 UNIT/M SC (15:21)
--- NOTE | 2016-10-19 17:56 | NUR ---
Discharge instructions given. Patient verbalizes understanding of same. Discharged in stable condition via Wheelchair to Home with family. All belongings sent with pt.
== END 2016-10-19 18:20 | disposition home health service (06) | DRG 280 ==
LOC: ED 11:18 → ED-I 11:48 → ED 11:48 → ED-I 12:55 → ED 13:36 → ICU 13:37
PROVIDERS: Emergency Medicine; Nurse Practitioner Family; ADMIT Internal Medicine; ATTEND Internal Medicine
PROC: 5A09357 Assistance with Respiratory Ventilation, Less than 24 Consecutive Hours, Continuous Positive Airway Pressure (ICD-10-PCS; principal; 2016-10-14)
DX: I13.0 Hypertensive heart and chronic kidney disease with heart failure and stage 1 through stage 4 chronic kidney disease, or unspecified chronic kidney disease (principal); I50.33 Acute on chronic diastolic (congestive) heart failure; I21.4 Non-ST elevation (NSTEMI) myocardial infarction; J96.21 Acute and chronic respiratory failure with hypoxia; J96.22 Acute and chronic respiratory failure with hypercapnia; J44.1 Chronic obstructive pulmonary disease with (acute) exacerbation; N39.0 Urinary tract infection, site not specified; E11.22 Type 2 diabetes mellitus with diabetic chronic kidney disease; N18.3 Chronic kidney disease, stage 3 (moderate); I25.2 Old myocardial infarction; E03.9 Hypothyroidism, unspecified; I25.10 Atherosclerotic heart disease of native coronary artery without angina pectoris; K21.9 Gastro-esophageal reflux disease without esophagitis; M19.90 Unspecified osteoarthritis, unspecified site; I48.91 Unspecified atrial fibrillation; E78.5 Hyperlipidemia, unspecified; R79.1 Abnormal coagulation profile; T45.515A Adverse effect of anticoagulants, initial encounter; E11.51 Type 2 diabetes mellitus with diabetic peripheral angiopathy without gangrene; H35.30 Unspecified macular degeneration; M25.512 Pain in left shoulder; S81.812A Laceration without foreign body, left lower leg, initial encounter; S20.212A Contusion of left front wall of thorax, initial encounter; W19.XXXA Unspecified fall, initial encounter; Y92.230 Patient room in hospital as the place of occurrence of the external cause; Z86.73 Personal history of transient ischemic attack (TIA), and cerebral infarction without residual deficits; Z95.1 Presence of aortocoronary bypass graft; Z95.5 Presence of coronary angioplasty implant and graft; Z79.4 Long term (current) use of insulin; Z87.891 Personal history of nicotine dependence; Z59.1 Inadequate housing; B96.20 Unspecified Escherichia coli [E. coli] as the cause of diseases classified elsewhere
CPT/HCPCS: J0885

== ENCOUNTER 2016-11-19 13:24 | Inpatient (IN) | payer MEDICARE, BC ==
[~2016-11-19] VITALS: Ht 167.6 cm; Wt 88.0 kg
[~2016-11-19 13:24] MED LIST changes: +ALPRAZOLAM0.25 MG PO; +ASPIRIN ADULT L81 M2 PO; +LORTAB 5-325 MG1 TAB PO; +NOVOLOG FL100 UNIT/M SC; +PREDNISONE10 MG PO
[2016-11-19 13:59] LABS: HEMATOCRIT 28.3 % (37.0-47.0); HEMOGLOBIN 8.7 g/dl (12.0-16.0); IMMATURE GRANULOCYTES 1.4 % (0.0-1.0); MEAN CELL VOLUME 95.9 fL CALC (80.0-100.0); MEAN CORPUSCULAR HGB 29.5 pG CALC (26.0-32.0); MEAN CORPUSCULAR HGB CONC 30.7 g/L CALC (32.0-36.0); NEUT# 11.72 thou/uL (2.00-7.15); RED BLOOD COUNT 2.95 mill/uL (4.20-5.60); RED CELL DISTRI WIDTH 15.2 % (11.5-15.5)
[2016-11-19 14:10] LABS: ALBUMIN 3.6 g/dL (3.2-5.0); BILIRUBIN, TOTAL 0.5 mg/dL (0.0-1.4); CALCIUM 9.3 mg/dL (8.4-10.2); CREATININE 1.6 mg/dL (0.5-1.0); POTASSIUM 4.4 mmol/l (3.5-5.1); TOTAL PROTEIN 6.8 g/dL (6.3-8.2)
[2016-11-19 14:13] LABS: INTERNATIONAL NORMALIZED RATIO 1.6 RATIO (0.7-1.3); PROTHROMBIN TIME 18.4 SECONDS (9.0-12.5)
[2016-11-19] MEDS ORDERED: XANAX0.25 MG PO (14:15)
[2016-11-19] MEDS ORDERED: SINEMET 25/1001 TA1 PO (14:17)
[2016-11-19] MEDS ORDERED: PROCRIT 1010000 U/ML IJ (14:21)
[2016-11-19] MEDS ORDERED: VITAMIN D22000 UNIT PO (14:24)
[2016-11-19] MEDS ORDERED: ADVAIR DISK1 IN (14:31)
[2016-11-19] MEDS ORDERED: ZYRTEC10 MG PO (14:32)
[2016-11-19] MEDS ORDERED: COUMADIN2.5 MG PO ×2 (14:47→14:49)
[2016-11-19 15:13] LABS: URINE BILIRUBIN - DIPSTICK NEGATIVE (NEGATIVE); URINE BLOOD DIPSTICK SMALL (NEGATIVE); URINE COLOR YELLOW; URINE GLUCOSE - DIPSTICK NEGATIVE (NEGATIVE); URINE KETONE NEGATIVE (NEGATIVE); URINE PROTEIN - DIPSTICK 30 mg/dL (NEG-TRACE); URINE SPECIFIC GRAVITY 1.025; URINE UROBILINOGEN - DIPSTICK 0.2 E.U./dL (0.2)
[2016-11-19 15:14] LABS: URINE CLARITY CLOUDY; URINE LEUK ESTERASE SMALL (NEGATIVE); URINE NITRITE - DIPSTICK POSITIVE (Negative)
[2016-11-19 15:22] LABS: URINE BACTERIA MANY hpf; URINE RBC 25-50 RBC/hpf (0-5); URINE SQUAMOUS EPITHELIAL CELL FEW EPI/hpf (0-FEW); URINE WBC 20-50 WBC/hpf (0-5)
[2016-11-19 17:13] VITALS: BP 144/66
[2016-11-19 19:42] VITALS: BP 131/50
[2016-11-20] VITALS (8 sets, daily range): BP systolic 122–146; BP diastolic 50–72
[2016-11-20 05:44] LABS: HEMATOCRIT 27.8 % (37.0-47.0); HEMOGLOBIN 8.7 g/dl (12.0-16.0); IMMATURE GRANULOCYTES 1.2 % (0.0-1.0); MEAN CELL VOLUME 95.5 fL CALC (80.0-100.0); MEAN CORPUSCULAR HGB 29.9 pG CALC (26.0-32.0); MEAN CORPUSCULAR HGB CONC 31.3 g/L CALC (32.0-36.0); NEUT# 10.06 thou/uL (2.00-7.15); RED BLOOD COUNT 2.91 mill/uL (4.20-5.60); RED CELL DISTRI WIDTH 15.1 % (11.5-15.5)
[2016-11-20 05:55] LABS: CALCIUM 9.1 mg/dL (8.4-10.2); CREATININE 1.6 mg/dL (0.5-1.0); POTASSIUM 4.7 mmol/l (3.5-5.1)
[2016-11-20 05:59] LABS: INTERNATIONAL NORMALIZED RATIO 1.6 RATIO (0.7-1.3); PROTHROMBIN TIME 18.5 SECONDS (9.0-12.5)
[2016-11-21 05:05] VITALS: BP 118/58
[2016-11-21 05:30] LABS: CALCIUM 8.9 mg/dL (8.4-10.2); CREATININE 2.4 mg/dL (0.5-1.0); POTASSIUM 3.8 mmol/l (3.5-5.1)
[2016-11-21 05:32] LABS: INTERNATIONAL NORMALIZED RATIO 1.7 RATIO (0.7-1.3); PROTHROMBIN TIME 18.8 SECONDS (9.0-12.5)
[2016-11-21 05:35] LABS: HEMATOCRIT 25.8 % (37.0-47.0); HEMOGLOBIN 7.9 g/dl (12.0-16.0); IMMATURE GRANULOCYTES 1.2 % (0.0-1.0); MEAN CELL VOLUME 94.9 fL CALC (80.0-100.0); MEAN CORPUSCULAR HGB CONC 30.6 g/L CALC (32.0-36.0); NEUT# 10.77 thou/uL (2.00-7.15); RED BLOOD COUNT 2.72 mill/uL (4.20-5.60); RED CELL DISTRI WIDTH 15.4 % (11.5-15.5)
[2016-11-21 07:10] VITALS: BP 127/52
[2016-11-21 11:00] VITALS: BP 126/57
[2016-11-21] MEDS ORDERED: AMIODARONE200 MG PO (13:26)
[2016-11-21 16:40] VITALS: BP 119/59
[2016-11-21 19:00] VITALS: BP 114/55
[2016-11-21 22:00] VITALS: BP 115/59
[2016-11-22 05:32] VITALS: BP 121/61
[2016-11-22 05:54] LABS: HEMATOCRIT 25.6 % (37.0-47.0); HEMOGLOBIN 7.8 g/dl (12.0-16.0); IMMATURE GRANULOCYTES 1.1 % (0.0-1.0); MEAN CELL VOLUME 96.6 fL CALC (80.0-100.0); MEAN CORPUSCULAR HGB 29.4 pG CALC (26.0-32.0); MEAN CORPUSCULAR HGB CONC 30.5 g/L CALC (32.0-36.0); NEUT# 7.84 thou/uL (2.00-7.15); RED BLOOD COUNT 2.65 mill/uL (4.20-5.60); RED CELL DISTRI WIDTH 15.4 % (11.5-15.5)
[2016-11-22 06:01] LABS: INTERNATIONAL NORMALIZED RATIO 1.8 RATIO (0.7-1.3); PROTHROMBIN TIME 20.7 SECONDS (9.0-12.5)
[2016-11-22 06:06] LABS: CALCIUM 8.6 mg/dL (8.4-10.2); CREATININE 2.5 mg/dL (0.5-1.0); POTASSIUM 4.1 mmol/l (3.5-5.1)
[2016-11-22 07:38] VITALS: BP 132/48
[2016-11-22 11:05] VITALS: BP 123/58
[2016-11-22 15:36] VITALS: BP 114/60
[2016-11-22 19:42] VITALS: BP 120/53
[2016-11-23 00:10] VITALS: BP 129/81
[2016-11-23 04:20] VITALS: BP 142/60
[2016-11-23 05:54] LABS: ALBUMIN 2.9 g/dL (3.2-5.0); CREATININE 2.2 mg/dL (0.5-1.0); POTASSIUM 4.1 mmol/l (3.5-5.1)
[2016-11-23 07:57] VITALS: BP 146/59
[2016-11-23 08:20] LABS: INTERNATIONAL NORMALIZED RATIO 1.6 RATIO (0.7-1.3); PROTHROMBIN TIME 18.1 SECONDS (9.0-12.5)
[2016-11-23 11:16] VITALS: BP 121/61
[2016-11-23] MEDS ORDERED: CLOTRIMAZOLE13 TOP (14:02)
[2016-11-23] MEDS ORDERED: FLORASTOR250 M1 PO (14:05)
[2016-11-23] MEDS ORDERED: DOXYCYCL HYC100 MG PO (14:05)
== END 2016-11-23 15:40 | DRG 190 ==
LOC: ED 13:24 → ED-I 15:46 → ED 15:56 → MS2 15:57
PROVIDERS: Emergency Medicine; Internal Medicine; Internal Medicine Nephrology; Nurse Practitioner Family; ADMIT Internal Medicine; ATTEND Internal Medicine
DX: J44.0 Chronic obstructive pulmonary disease with (acute) lower respiratory infection (principal); J96.21 Acute and chronic respiratory failure with hypoxia; N17.9 Acute kidney failure, unspecified; J18.9 Pneumonia, unspecified organism; I13.0 Hypertensive heart and chronic kidney disease with heart failure and stage 1 through stage 4 chronic kidney disease, or unspecified chronic kidney disease; E11.22 Type 2 diabetes mellitus with diabetic chronic kidney disease; E11.51 Type 2 diabetes mellitus with diabetic peripheral angiopathy without gangrene; I50.32 Chronic diastolic (congestive) heart failure; B37.2 Candidiasis of skin and nail; D63.1 Anemia in chronic kidney disease; N39.0 Urinary tract infection, site not specified; N18.3 Chronic kidney disease, stage 3 (moderate); I48.0 Paroxysmal atrial fibrillation; I25.2 Old myocardial infarction; E03.9 Hypothyroidism, unspecified; I25.10 Atherosclerotic heart disease of native coronary artery without angina pectoris; M19.90 Unspecified osteoarthritis, unspecified site; E78.5 Hyperlipidemia, unspecified; H35.30 Unspecified macular degeneration; S20.212D Contusion of left front wall of thorax, subsequent encounter; S20.211D Contusion of right front wall of thorax, subsequent encounter; W19.XXXD Unspecified fall, subsequent encounter; S80.812D Abrasion, left lower leg, subsequent encounter; I25.5 Ischemic cardiomyopathy; B96.20 Unspecified Escherichia coli [E. coli] as the cause of diseases classified elsewhere; T50.2X5A Adverse effect of carbonic-anhydrase inhibitors, benzothiadiazides and other diuretics, initial encounter; Z87.891 Personal history of nicotine dependence; Z95.1 Presence of aortocoronary bypass graft; Z86.73 Personal history of transient ischemic attack (TIA), and cerebral infarction without residual deficits; Z79.01 Long term (current) use of anticoagulants; Z95.5 Presence of coronary angioplasty implant and graft
CPT/HCPCS: J1956

== ENCOUNTER 2016-12-02 11:45 | Emergency (ER) | payer MEDICARE, BC ==
[~2016-12-02] VITALS: Ht 167.6 cm; Wt 86.0 kg
[~2016-12-02 11:45] MED LIST changes: +ADVAIR DISK1 IN; +CLOTRIMAZOLE13 TOP; +COUMADIN2.5 MG PO; +DOXYCYCL HYC100 MG PO; +FLORASTOR250 M1 PO; +PROCRIT 1010000 U/ML IJ; +SINEMET 25/1001 TA1 PO; +VITAMIN D22000 UNIT PO; +XANAX0.25 MG PO
[2016-12-02 13:11] LABS: HEMATOCRIT 29.5 % (37.0-47.0); HEMOGLOBIN 8.9 g/dl (12.0-16.0); IMMATURE GRANULOCYTES 0.6 % (0.0-1.0); MEAN CELL VOLUME 95.5 fL CALC (80.0-100.0); MEAN CORPUSCULAR HGB 28.8 pG CALC (26.0-32.0); MEAN CORPUSCULAR HGB CONC 30.2 g/L CALC (32.0-36.0); NEUT# 8.62 thou/uL (2.00-7.15); RED BLOOD COUNT 3.09 mill/uL (4.20-5.60); RED CELL DISTRI WIDTH 15.6 % (11.5-15.5)
[2016-12-02 13:24] LABS: ALBUMIN 3.4 g/dL (3.2-5.0); BILIRUBIN, TOTAL 0.4 mg/dL (0.0-1.4); CALCIUM 9.1 mg/dL (8.4-10.2); CREATININE 1.6 mg/dL (0.5-1.0); POTASSIUM 4.9 mmol/l (3.5-5.1)
[2016-12-02 13:27] LABS: INTERNATIONAL NORMALIZED RATIO 2.5 RATIO (0.7-1.3); PROTHROMBIN TIME 29.6 SECONDS (9.0-12.5)
[2016-12-02] MEDS ORDERED: DOXYCYC MONO100 M1 PO (14:32)
[2016-12-02 15:50] VITALS: BP 133/63
== END 2016-12-02 15:50 | disposition home or self-care (01) ==
LOC: ED 11:45
PROVIDERS: Emergency Medicine
DX: L03.116 Cellulitis of left lower limb (principal); I25.2 Old myocardial infarction; E03.9 Hypothyroidism, unspecified; I25.10 Atherosclerotic heart disease of native coronary artery without angina pectoris; K21.9 Gastro-esophageal reflux disease without esophagitis; M19.90 Unspecified osteoarthritis, unspecified site; J44.9 Chronic obstructive pulmonary disease, unspecified; E11.22 Type 2 diabetes mellitus with diabetic chronic kidney disease; N18.3 Chronic kidney disease, stage 3 (moderate); Z79.4 Long term (current) use of insulin; Z95.1 Presence of aortocoronary bypass graft; Z86.73 Personal history of transient ischemic attack (TIA), and cerebral infarction without residual deficits; Z95.5 Presence of coronary angioplasty implant and graft; M79.89 Other specified soft tissue disorders; M79.605 Pain in left leg

== ENCOUNTER 2017-02-09 09:47 | Inpatient (IN) | payer MEDICARE, BC ==
[~2017-02-09] VITALS: Ht 167.6 cm; Wt 85.4 kg
[~2017-02-09 09:47] MED LIST changes: +DOXYCYC MONO100 M1 PO; -PROCRIT 1010000 U/ML IJ; +PROCRIT 1010000 U/ML SC
--- NOTE | 2017-02-09 10:03 | NUR ---
PT TO ROOM PER W/C
[2017-02-09 10:33] LABS: HEMATOCRIT 31.6 % (37.0-47.0); HEMOGLOBIN 9.9 g/dl (12.0-16.0); IMMATURE GRANULOCYTES 0.5 % (0.0-1.0); MEAN CELL VOLUME 93.5 fL CALC (80.0-100.0); MEAN CORPUSCULAR HGB 29.3 pG CALC (26.0-32.0); MEAN CORPUSCULAR HGB CONC 31.3 g/L CALC (32.0-36.0); NEUT# 12.96 thou/uL (2.00-7.15); RED BLOOD COUNT 3.38 mill/uL (4.20-5.60); RED CELL DISTRI WIDTH 15.7 % (11.5-15.5)
--- NOTE | 2017-02-09 10:37 | NUR ---
RT PLACED PT ON 2 L O2 VIA NC. PT RESTING COMFORTABLY IN STRETCHER WITH HOB ELEVATED. PT DENIES ANY NEEDS AT THIS TIME. CALL [facility]AS WITHIN REACH.
[2017-02-09 10:48] LABS: ALBUMIN 4.3 g/dL (3.2-5.0); BILIRUBIN, TOTAL 0.8 mg/dL (0.0-1.4); CREATININE 1.5 mg/dL (0.5-1.0); POTASSIUM 4.5 mmol/l (3.5-5.1); TOTAL PROTEIN 7.7 g/dL (6.3-8.2)
[2017-02-09] MEDS ORDERED: PRESERVISION PO (10:49)
[2017-02-09] MEDS ORDERED: WARFARIN4 MG PO (11:02)
[2017-02-09] MEDS ORDERED: WARFARIN2 MG PO (11:03)
[2017-02-09 11:12] LABS: INTERNATIONAL NORMALIZED RATIO 1.6 RATIO (0.7-1.3); PROTHROMBIN TIME 18.2 SECONDS (9.0-12.5)
--- NOTE | 2017-02-09 11:53 | NUR ---
ASSISTED PT TO BEDSIDE COMMODE. PT AWARE OF PROBABLE ADMIT. SAO2 96%. WILL CONTINUE TO MONTIOR.
--- NOTE | 2017-02-09 12:22 | NUR ---
AT [facility] TO DISCUSS RESULTS AND PLAN FOR ADMISSION.
--- NOTE | 2017-02-09 13:10 | NUR ---
PT AWARE OF BUSY ED AND PLAN FOR ADMISSION. PT TO [facility] COMMODE WITH HELP PF SISTER. PT DENIED ANY SOB.
--- NOTE | 2017-02-09 13:56 | NUR ---
REPORT CALLED TO BRITTON THEODORE.
--- NOTE | 2017-02-09 14:20 | NUR ---
Admission Note Report Given to: SBAR PRINTED TO FLOOR Transported by: Wheelchair X Stretcher Transported with: X Nurse Transporter X Patent IV [id number] Accounts Payable Associate
[2017-02-09 14:30] VITALS: BP 120/58
--- NOTE | 2017-02-09 14:30 | NUR ---
PT ARRIVED FROM ER VIA STRETCHER ACCOMPANIED BY STAFF. IV SITE IS FREE FROM REDNESS OR EDEMA TELE MONITOR IN PLACE
--- NOTE | 2017-02-09 18:00 | NUR ---
PT IS RELAXING IM BED WITH NO DISTRESS NOTED. IV SITE IS FREE FROM REDNESS OR EDEMA. CONTINUE TO OBSERVE AND MONITOR.
[2017-02-09 20:05] VITALS: BP 134/63
--- NOTE | 2017-02-09 21:45 | NUR ---
PT RESTING IN SEMI FOWLERS POSITION;EXCERTIONAL SOB NOTED;RESPIRATIONS EVEN AND UNLABORED BUT SHALLOW ON 02 @ 2L VIA NC;RT CALLED FOR A BREATHING TX PER PT REQUEST;ASSESSMENT COMPLETED;PT MEDICATED WITH PRN TYLENOL 650MG PO FOR A FEVER OF 100.0,WILL MONITOR FOR EFFECTIVENESS;TELE MONITOR IN PLACE;SKIN TEAR NOTED TO LEFT LOWER LEG,PHOTOGRAPHS OBTAINED AND PLACE IN CHART;WOUND CLEANSED AND BANDAID APPLIED;#20G TO LAC FLUSHED AND PATENT,NEW DRESSING APPLIED;+1 EDEMA NOTED TO BILATERAL ANKLES;PT DENIES ANY NEEDS AT THIS TIME;SAFETY PRECAUTIONS REINFORCED AND PT EDUCATED TO CALL FOR ASSISTANCE IF NEEDED;CALL LIGHT IN REACH;WILL CONTINUE TO MONITOR
[2017-02-10 00:08] LABS: URINE BILIRUBIN - DIPSTICK NEGATIVE (NEGATIVE); URINE BLOOD DIPSTICK TRACE-LYSED (NEGATIVE); URINE COLOR YELLOW; URINE GLUCOSE - DIPSTICK NEGATIVE (NEGATIVE); URINE KETONE NEGATIVE (NEGATIVE); URINE LEUK ESTERASE SMALL (Negative); URINE NITRITE - DIPSTICK NEGATIVE (Negative); URINE PROTEIN - DIPSTICK TRACE mg/dL (NEG-TRACE); URINE SPECIFIC GRAVITY 1.015; URINE UROBILINOGEN - DIPSTICK 0.2 E.U./dL (0.2)
[2017-02-10 00:10] VITALS: BP 129/54
[2017-02-10 00:13] LABS: URINE CLARITY TURBID
[2017-02-10 00:14] LABS: URINE BACTERIA MANY hpf; URINE SQUAMOUS EPITHELIAL CELL FEW EPI/hpf (0-FEW)
--- NOTE | 2017-02-10 00:25 | NUR ---
PT SLEEPING IN SUPINE POSITION;RESPIRATIONS EVEN AND UNLABORED ON 02 @ 2L;TELE MONITOR IN PLACE;NO S/S OF DISTRESS NOTED;CALL LIGHT IN REACH;WILL CONTINUE TO MONITOR
[2017-02-10 03:07] LABS: HEMATOCRIT 34.5 % (37.0-47.0); HEMOGLOBIN 10.4 g/dl (12.0-16.0); MEAN CELL VOLUME 94.8 fL CALC (80.0-100.0); MEAN CORPUSCULAR HGB 28.6 pG CALC (26.0-32.0); MEAN CORPUSCULAR HGB CONC 30.1 g/L CALC (32.0-36.0); RED BLOOD COUNT 3.64 mill/uL (4.20-5.60); RED CELL DISTRI WIDTH 15.4 % (11.5-15.5)
[2017-02-10 05:28] VITALS: BP 133/64
--- NOTE | 2017-02-10 05:50 | NUR ---
PT APPEARS TO BE SLEEPING IN SUPINE POSITION;WOKE PT TO ADMINISTER SCHEDULED MEDICATIONS;PT COMPLAINS OF CHILLS,CURRENT TEMP 96.5 AND CURRENT BS WNL;BLANKETS PROVIDED;RESPIRATIONS EVEN AND UNLABORED ON 02 @ 2L;TELE MONITOR REMAINS IN PLACE;PT DENIES ANY NEEDS AND IS EDUCATED ON THE NEED FOR A URINE SAMPLE;CALL LIGHT IN REACH;WILL CONTINUE TO MONITOR
[2017-02-10 07:07] LABS: CALCIUM 9.5 mg/dL (8.4-10.2); CREATININE 1.6 mg/dL (0.5-1.0); POTASSIUM 4.1 mmol/l (3.5-5.1)
[2017-02-10 07:10] LABS: PROTHROMBIN TIME 22.1 SECONDS (9.0-12.5)
--- NOTE | 2017-02-10 07:32 | NUR ---
REPORT RECEIVED FROM NIGHT NURSE, PT.IS SLEEPING W/LIGHTS OUT, BUT AWOKE TO OUR VOICES UPON ENTERING ROOM. DENIES PAIN OR ANY NEEDS, BUT ASKED TO GO BACK TO SLEEP. CALL LIGHT IS W/IN REACH AND PT.HAS BEEN INSTRUCTED TO CALL IF ANY NEEDS ARISE.
[2017-02-10 08:05] VITALS: BP 121/51
--- NOTE | 2017-02-10 12:26 | NUR ---
PT.MEDICATED ORDERS PROVIDE. SHE IS IN BED RESTING, BUT AWAKE AT THIS TIME. CALL LIGHT AT SIDE. DENIES ANY NEEDS
--- NOTE | 2017-02-10 15:05 | NUR ---
PT.IN RECLINER, IV ANTIBIOTIC THERAPY ADMINISTERED ORDERS PROVIDE. CALL LIGHT IS W/IN REACH, DENIES ANY OTHER NEEDS AT THIS TIME.
[2017-02-10 15:32] VITALS: BP 113/59
--- NOTE | 2017-02-10 19:15 | NUR ---
BEDSIDE REPORT RECEIVED FROM WOLFGANG BALLESTEROS. SITTING UP IN RELINCER WATCHING TV. ALERT AND ORIENTED. DENIES PAIN CURRENTLY. RESPIRATIONS EVEN AND UNLABORED. IV SITE TO LEFT WRIST NOTED TO BE INFILTRATED. NEW IV STARTED TO RIGHT WRIST; ABT NOW INFUSING WITHOUT DIFFICULTY. PLAN OF CARE DISCUSSED. PT ENCOURAGED TO VERBALIZE CONCERNS. STATES UNDERSTANDING. SAFETY MEASURES IN PLACE. CALL LIGHT SYSTEM REVIEWED AND IN REACH.
[2017-02-10 19:45] VITALS: BP 130/71
--- NOTE | 2017-02-11 | NUR ---
IV ABT INFUSED WIHTOUT DIFFICULTY. 24 GAUGE IV SEEMS TO BE OCCLUDING VERY EASILY. FLUSHING FREQUENTLY TO AVOID OCCLUSION. PT HAS NO COMPLAINTS OR REQUESTS AT THIS TIME. BANDAID TO SKIN TEAR ON LLE CHANGED AFTER CLEANSING WITH NS. CALL LIGHT WITHIN REACH.
[2017-02-11 00:35] VITALS: BP 129/61
--- NOTE | 2017-02-11 04:13 | NUR ---
PT ASLEEP AT THIS TIME WITH NO SIGNS OF DISTRESS NOTED. RESPIRATIONS EVEN AND UNLABORED ON ROOM AIR. PT USES CALL LIGHT PRN FOR ASSISTANCE. SAFETY MEASURES REMAIN IN PLACE. CALL LIGHT WITHIN REACH.
[2017-02-11 04:45] VITALS: BP 123/56
[2017-02-11 04:51] LABS: INTERNATIONAL NORMALIZED RATIO 2.5 RATIO (0.7-1.3); PROTHROMBIN TIME 28.9 SECONDS (9.0-12.5)
[2017-02-11 08:45] VITALS: BP 129/68
--- NOTE | 2017-02-11 09:18 | NUR ---
BEDSIDE REPORT RECEIVED FROM NIGHT NURSE, PT.WAS AWAKE IN BED, LOCX4. SHE IS NOW UPRIGHT ON SIDE OF BED, JUST COMPLETED BREAKFAST TRAY. V/S ASSESSED AND MEDICATED ORDERS PROVIDE. DENIES ANY PAIN OR DISCOMFORT AT THIS TIME. IV SITE FLUSHED WELL AND APPEARS HEALTHY AT THIS TIME. CALL LIGHT W/IN REACH, PT. DENIES ANY OTHER NEEDS AT THIS TIME. POC DISCUSSED.
[2017-02-11 10:51] VITALS: BP 122/58
--- NOTE | 2017-02-11 11:52 | NUR ---
PT.MEDICATED ORDERS PROVIDE. SHE IS UPRIGHT IN RECLINER WATCHING TV. DENIES ANY NEEDS AT THIS TIME. CALL LIGHT W/IN REACH
[2017-02-11 15:10] VITALS: BP 124/56
--- NOTE | 2017-02-11 15:30 | NUR ---
PT.PROPPED UP IN BED WATCHING TV, DENIES ANY NEEDS AT THIS TIME. CALL LIGHT W/IN REACH
--- NOTE | 2017-02-11 18:00 | NUR ---
PT.MEDICATED W/IV ANTIBIOTIC THERAPY, FAMILY AT BEDSIDE, PT.IS UPRIGHT SITTING ON SIDE OF BED VISITING AND EATING SUPPER TRAY. POC REDISCUSSED WITH PT. SHE DENIES PAIN OR N/V OR SOB AT THIS TIME. IV FLUSHES WELL AND IS RECEIVING IV ANTIBIOTIC.
[2017-02-11 19:20] VITALS: BP 122/64
--- NOTE | 2017-02-11 19:45 | NUR ---
BEDSIDE REPORT RECEIVED FROM WOLFGANG BALLESTEROS. PT SITTING UP ON EDGE OF THE BED. PLEASANT AND AWAKE; STATES THAT SHE HAS NOT SLEPT SINCE THE DAY BEFORE BECAUSE THERE IS A LOT ON HER MIND; ALSO ON SOLUMEDROL. DENIES PAIN CURRENTLY. RESPIRATIONS EVEN AND UNLABORED ON 2L OF OXYGEN VIA NC. PT STATES THAT SHE REMOVES OXYGEN TO GO TO THE BATHROOM, AND IS SOB WHEN SHE RETURNS TO BED. PALN OF CARE REVIEWED INCLUDING PLANNED DISCHARGE HOME WITH SISTER TOMORROW. PT ENCOURAGED TO VERBALIZE CONCERNS. SHE HAS QUESTIONS ABOUT OXYGEN THERAPY AND POTENTIAL HOME DEPENDENCE. SAFETY MEASURES IN PLACE. CALL LIGHT SYSTEM REVIEWED AND IN REACH.
--- NOTE | 2017-02-11 23:53 | NUR ---
PT RESTING IN BED COMFORTABLY; NO SIGNS OF DISTRESS NOTED. RESPIRATIONS EVEN AND UNLABORED. DENIES COMPLAINTS AND HAS NO REQUESTS AT THIS TIME. IV SITE FLUSHES FOR IV ABT AND APPEARS HEALTHY. SAFETY MEASURES REMAIN IN PLACE. CALL LIGHT WITHIN REACH.
[2017-02-12 00:10] VITALS: BP 115/58
--- NOTE | 2017-02-12 03:57 | NUR ---
PT UP TO BATHROOM PRN TO VOID. HAS HAD NO FURTHER REQUESTS OR COMPLAINTS. NO CHANGES IN CONDITION NOTED. SAFETY MEASURES IN PLACE. CALL LIGHT WITHIN REACH.
[2017-02-12 04:50] VITALS: BP 132/62
[2017-02-12 05:40] LABS: INTERNATIONAL NORMALIZED RATIO 2.7 RATIO (0.7-1.3)
[2017-02-12 05:43] LABS: HEMATOCRIT 29.1 % (37.0-47.0); HEMOGLOBIN 8.9 g/dl (12.0-16.0); IMMATURE GRANULOCYTES 0.7 % (0.0-1.0); MEAN CELL VOLUME 91.8 fL CALC (80.0-100.0); MEAN CORPUSCULAR HGB 28.1 pG CALC (26.0-32.0); MEAN CORPUSCULAR HGB CONC 30.6 g/L CALC (32.0-36.0); NEUT# 9.98 thou/uL (2.00-7.15); RED BLOOD COUNT 3.17 mill/uL (4.20-5.60); RED CELL DISTRI WIDTH 15.5 % (11.5-15.5)
[2017-02-12 05:47] LABS: CALCIUM 9.9 mg/dL (8.4-10.2); CREATININE 2.6 mg/dL (0.5-1.0); MAGNESIUM 2.1 mg/dL (1.6-2.3); POTASSIUM 4.2 mmol/l (3.5-5.1)
--- NOTE | 2017-02-12 07:00 | NUR ---
SHIFT CHANGE REPORT FROM SHELBY MATTHEWS AWAKE ALERT AND ORIENTED SITTING UP AT BEDSIDE, O2 A2 2L IN PLACE VIA N/C, TELE MONITOR IN PLACE WITH 1 LEAD OFF WHICH WAS REPLACED AND NOW READING IS ACCURATE PER ENTERTAINMENT REPORTER IN ED. NO C/O DISCOMFORT AT THIS TIME, CALL URIAS IN REACH AND BED IN LOWEST POSITION.
[2017-02-12 09:18] VITALS: BP 134/63
[2017-02-12 10:50] VITALS: BP 118/56
--- NOTE | 2017-02-12 12:39 | NUR ---
SITTING UP IN RECLINER NOW, ATE MEAL, IV FLUID INFUSING PER ORDER AND BEING TOLERATED WELL, TELE MONITOR ADJUSTED AFTER MOTITOR TECH REPORTED ABNORMALITY IN READING, NO C/O DISCOMFORT, CALL URIAS IN REACH.
--- NOTE | 2017-02-12 15:36 | NUR ---
CHEVY CASING MAN RECOMMENDED DIET CHANGE, DONE.
--- NOTE | 2017-02-12 15:39 | NUR ---
RESTING IN RECLINER AT THIS TIME, ALL NEEDS MET/ADDRESSED, CALL URIAS IN REACH.
[2017-02-12 15:54] VITALS: BP 123/53
--- NOTE | 2017-02-12 16:23 | NUR ---
PT IS RELAXING IN THE CHAIR, NO DISTRESS NOTED. CONTINUE TO OSBERVE AND MONITOR.
--- NOTE | 2017-02-12 17:00 | NUR ---
Visited pt room during rounds. Reviewed all medications that pt is currently prescribed, including dosage change for levothyroxine. Pt was very knowledgable about medications and what they are for. Was concerned about not getting her carbicopa/levodpa since she has been here even though her daughter had brought it in along with about 20 other medications. Advised I will check to make sure medications are there and follow up with her. Pt did not havy any other questions or concerns about medications or current therapy.
--- NOTE | 2017-02-12 18:49 | NUR ---
PT IS RELAXING IN THE CHAIR VISITING WITH FAMILY. CONTINUE TOOSBERVE AND MONITOR.
[2017-02-12 19:21] VITALS: BP 133/69
--- NOTE | 2017-02-12 19:35 | NUR ---
PT SITTING ON SIDE OF BED, ALERT AND ORIENTED. RESP EVEN AND UNLABORED WITH O2 IN PLACE. LUNGS CLEAR, DIMINISHED IN BASES. TELE IN PLACE. ABD SOFT, BOWELS SOUNDS PRESENT. LEFT LOWER LEG SKIN TEAR COVERED WITH BANDAGE, CDI. PEDAL PULSES PALPATED BILAT. TRACE ANKLE EDEMA NOTED, PT ENCOURAGED TO ELEVATE. IV LAC FLUSHED WITHOUT ANY DIFFICULTY. PT DENIES ANY PAIN OR DISCOMFORT. FREQUENT ROUNDS MADE. CALL LIGHT WITHIN REACH.
--- NOTE | 2017-02-13 00:35 | NUR ---
PT APPEARS TO BE SLEEPING. RESP EVEN AND UNLABORED, O2 IN PLACE. TELE IN PLACE. NO DISTRESS NOTED. CALL LIGHT WITHIN REACH.
[2017-02-13 00:47] VITALS: BP 146/66
--- NOTE | 2017-02-13 04:10 | NUR ---
PT APPEARS TO BE SLEEPING. RESP EVEN AND UNLABORED. O2 IN PLACE. TELE IN PLACE. NO DISTRESS NOTED. ASSESSMENT UNCHANGED. CALL LIGHT WITHIN REACH.
[2017-02-13 05:21] VITALS: BP 136/74
--- NOTE | 2017-02-13 05:30 | NUR ---
PT STATES HAD A NOSE BLEED THIS MORNING. PT STATES "THIS ISN'T UNCOMMON". THE BLEEDING HAS STOPPED. PT DENIES ANY PAIN OR DISCOMFORT. CALL LIGHT WITHIN REACH.
[2017-02-13 06:36] LABS: HEMOGLOBIN 8.3 g/dl (12.0-16.0); IMMATURE GRANULOCYTES 0.8 % (0.0-1.0); MEAN CELL VOLUME 92.2 fL CALC (80.0-100.0); MEAN CORPUSCULAR HGB 28.3 pG CALC (26.0-32.0); MEAN CORPUSCULAR HGB CONC 30.7 g/L CALC (32.0-36.0); NEUT# 6.79 thou/uL (2.00-7.15); RED BLOOD COUNT 2.93 mill/uL (4.20-5.60); RED CELL DISTRI WIDTH 15.3 % (11.5-15.5)
[2017-02-13 06:55] LABS: INTERNATIONAL NORMALIZED RATIO 2.7 RATIO (0.7-1.3); PROTHROMBIN TIME 31.1 SECONDS (9.0-12.5)
--- NOTE | 2017-02-13 07:00 | NUR ---
SHIFT CHANGE REPORT FROM SHELBY NY SLEEPING BUT AROUSES TO VERBAL STIMULI, ORIENTED, NO C/O DISCOMFORT, O2 @ 2L VIA NC IN PLACE, TELE MONITOR IN PLACE, CALL URIAS IN REACH.
[2017-02-13 07:03] LABS: CALCIUM 9.6 mg/dL (8.4-10.2); CREATININE 2.1 mg/dL (0.5-1.0); MAGNESIUM 2.2 mg/dL (1.6-2.3); POTASSIUM 3.9 mmol/l (3.5-5.1)
[2017-02-13 07:57] VITALS: BP 146/67
[2017-02-13 11:07] VITALS: BP 125/57
[2017-02-13 15:40] VITALS: BP 135/64
--- NOTE | 2017-02-13 16:03 | NUR ---
O2 OFF X 30 MINS, AMBULATION ON R/A SATS DROPPED TO 88%, AMBULATING WITH 02 SATS DOWN TO 85% AND PT BECAME WINDED, RETURNED TO ROOM VIA W/C, AT REST SATS UP TO 95%. SITTING UP AT BEDSIDE NOW RESTING, WILL CONTINUE TO MONITOR.
--- NOTE | 2017-02-13 17:29 | NUR ---
Talked to patient today about her medical conditions. Pt. shared that she does not depend on lortab and only take it as needed when pain is not tolerable. Pt. reported that doxycycline helps to clear her bronchitis. Pt. did not experience any side effects with medications that she is currently taken. Pt. did not have any questions to the pharmacy at this time.
[2017-02-13 18:45] VITALS: BP 137/64
--- NOTE | 2017-02-13 19:15 | NUR ---
PT REPORTED ATE FRUITS FROM KITCHEN AND HAD LARGE AMOUNT VOMITUS SHORTLY THEREAFTER, ANITEMETIC GIVEN AND HS NURSE WILL CONTINUE TO MONITOR.
--- NOTE | 2017-02-13 19:40 | NUR ---
PT UP AT SIDE OF BED WATCHING TV. RESP EVEN AND UNLABORED WITH O2 IN PLACE. LUNGS CLEAR, DIMINISHED IN BASES. TELE IN PLACE. ABD SOFT, BOWEL SOUNDS PRESENT. LEFT LEG DRESSING,CDI. EDEMA BILAT LEGS NOTED; PT ENCOURAGED TO ELEVATE LEGS. PEDAL PULSES PALPATED BILAT. PT DENIES ANY PAIN OR DISCOMFORT. IV LAC PATENT, FLUSHED WITHOUT ANY DIFFICULTY. FREQUENT ROUNDS MADE. CALL LIGHT WITHIN REACH.
[2017-02-14 00:38] VITALS: BP 130/59
--- NOTE | 2017-02-14 00:45 | NUR ---
PT APPEARS TO BE SLEEPING. RESP EVEN AND UNLABORED, O2 IN PLACE. NO DISTRESS NOTED. CALL LIGHT WITHIN REACH.
[2017-02-14 05:00] VITALS: BP 138/63
--- NOTE | 2017-02-14 05:50 | NUR ---
PT WATCHING TV. PT DENIES ANY PAIN OR DISCOMFORT. RESP EVEN AND UNLABORED WITH O2 IN PLACE. TELE IN PLACE. LEGS ELEVATED. ASSESSMENT UNCHANGED. CALL LIGHT WITHIN REACH.
[2017-02-14 07:01] LABS: HEMATOCRIT 27.9 % (37.0-47.0); HEMOGLOBIN 8.5 g/dl (12.0-16.0); IMMATURE GRANULOCYTES 1.7 % (0.0-1.0); MEAN CELL VOLUME 92.7 fL CALC (80.0-100.0); MEAN CORPUSCULAR HGB 28.2 pG CALC (26.0-32.0); MEAN CORPUSCULAR HGB CONC 30.5 g/L CALC (32.0-36.0); NEUT# 5.66 thou/uL (2.00-7.15); RED BLOOD COUNT 3.01 mill/uL (4.20-5.60); RED CELL DISTRI WIDTH 15.5 % (11.5-15.5)
[2017-02-14 07:19] LABS: CALCIUM 9.7 mg/dL (8.4-10.2); CREATININE 1.8 mg/dL (0.5-1.0); MAGNESIUM 2.3 mg/dL (1.6-2.3)
[2017-02-14 07:21] LABS: POTASSIUM 4.2 mmol/l (3.5-5.1)
--- NOTE | 2017-02-14 07:30 | NUR ---
REPORT RECEIVED FROM NIGHT NURSE, PT.SLEEPING AT THIS TIME, NO S/S OF DISTRESS CALL LIGHT AT SIDE
[2017-02-14 09:45] VITALS: BP 128/61
[2017-02-14 10:03] LABS: INTERNATIONAL NORMALIZED RATIO 2.4 RATIO (0.7-1.3); PROTHROMBIN TIME 27.4 SECONDS (9.0-12.5)
--- NOTE | 2017-02-14 10:15 | NUR ---
PT.UPRIGHT ON SIDE OF BED LOCX4. LUNG SOUNDS ARE CLEAR/DIM, DENIES PAIN/N/V AT THIS TIME, BUT REPORTS THAT SHE ATE FRUIT LAST NIGHT WITH SUPPER TRAY AND "VOMITED IT ALL UP," SHE DENIES ANY NAUSEA AT THIS TIME. CALL LIGHT IS W/IN REACH AND INSTRUCTED TO CALL IF ANY NEEDS ARISE.
[2017-02-14 11:06] VITALS: BP 137/63
[2017-02-14 14:53] VITALS: BP 115/50
--- NOTE | 2017-02-14 15:58 | NUR ---
PT.FOUND KNEELED ON FLOOR NEXT TO BED. SHE REPORTED THAT SHE DID NOT FALL, THAT SHE KNELT DOWN TO GET HER LOTION UNDER THE BED AND COULDN'T GET BACK UP BY HERSELF. DANDREAIXA REPORTED ASSISTING HER BACK TO SIT ON SIDE OF BED.
--- NOTE | 2017-02-14 15:59 | NUR ---
PT.ASSESSED, NO REPORTED OR VISUAL INJURIES FROM KNEELING ON FLOOR
--- NOTE | 2017-02-14 17:25 | NUR ---
PT.SITTING UPRIGHT ON SIDE OF BED, MEDICATED FOR BLOOD SUGAR OF 283. SHE DENIES ANY OTHER NEEDS, CALL LIGHT IS AT SIDE
[2017-02-14 18:16] VITALS: BP 130/54
--- NOTE | 2017-02-14 20:35 | NUR ---
PT RESTING IN SEMI FOWLERS POSITION WATCHING TV;DENIES ANY PAIN OR DISCOMFORTS;ASSESSMENT COMPLETED;RESPIRATIONS EVEN AND UNLABORED ON 02 @ 2L HUM VIA NC;TELE MONITOR IN PLACE;#22G TO LAC FLUSHED AND PATENT,SITE APPEARS HEALTHY;DRESSING TO LEFT LOWER LEG REMAINS CDI,PHOTOGRAPH IN CHART;A&O X3;3+ EDEMA NOTED TO BILATERAL LOWER ANKLES PT ENCOURAGED TO KEEP FEET ELEVATED;REDDENING NOTED TO LEFT EYE,MD AWARE;PT VOICES NO COMPLAINTS OR CONCERNS;SAFETY PRECAUTIONS REINFORCED;FALL PRECAUTIONS IN PLACE WITH CALL LIGHT IN REACH;WILL CONTINUE TO MONITOR
[2017-02-15 00:12] VITALS: BP 132/58
--- NOTE | 2017-02-15 00:15 | NUR ---
PT APPEARS TO BE SLEEPING IN SUPINE POSITION WITH EYES CLOSED;NO S/S OF DISTRESS NOTED;RESPIRATIONS EVEN AND UNLABORED ON 02 @ 2L HUM;TELE MONITOR IN PLACE;FALL PRECAUTIONS IN PLACE WITH BED IN THE LOWEST POSITION;CALL LIGHT IN REACH;WILL CONTINUE TO MONITOR
--- NOTE | 2017-02-15 05:30 | NUR ---
PT APPEARS TO BE SLEEPING IN SUPINE POSITION;WOKE PT TO ADMINISTER SCHEDULED MEDICATIONS;PT VOICES NO COMPLAINTS OR COONCERNS;RESPIRATIONS EVEN AND UNLABORED ON 02 @ 2L;TELE MONITOR IN PLACE;FALL PRECAUTIONS IN PLACE WITH CALL LIGHT IN REACH;WILL CONTINUE TO MONITOR
[2017-02-15 05:41] LABS: HEMATOCRIT 30.4 % (37.0-47.0); HEMOGLOBIN 9.1 g/dl (12.0-16.0); IMMATURE GRANULOCYTES 2.4 % (0.0-1.0); MEAN CORPUSCULAR HGB 27.8 pG CALC (26.0-32.0); MEAN CORPUSCULAR HGB CONC 29.9 g/L CALC (32.0-36.0); NEUT# 8.75 thou/uL (2.00-7.15); RED BLOOD COUNT 3.27 mill/uL (4.20-5.60); RED CELL DISTRI WIDTH 15.7 % (11.5-15.5)
[2017-02-15 05:48] VITALS: BP 140/61
[2017-02-15 05:57] LABS: INTERNATIONAL NORMALIZED RATIO 2.2 RATIO (0.7-1.3); PROTHROMBIN TIME 25.4 SECONDS (9.0-12.5)
[2017-02-15 06:05] LABS: CALCIUM 9.9 mg/dL (8.4-10.2); CREATININE 1.7 mg/dL (0.5-1.0); MAGNESIUM 2.2 mg/dL (1.6-2.3); POTASSIUM 4.4 mmol/l (3.5-5.1)
[2017-02-15 07:45] VITALS: BP 142/67
--- NOTE | 2017-02-15 07:45 | NUR ---
ASSESSMENT IS COMPLETED. TELE MONITOR IN PLACE. IV SITE IS FREE FROM REDNESS OR EDEMA. DRESSING ON LEFT CALIX IS CDI. CONTINUE TO OSBERVE AND MONITOR.
[2017-02-15 11:07] VITALS: BP 123/58
--- NOTE | 2017-02-15 12:00 | NUR ---
PT IS SITTING IN THE CHAIR NO DISTRESS NOTED. IV SITE IS FREE FROM REDNESS OR EDEMA.
--- NOTE | 2017-02-15 16:00 | NUR ---
PT REMAINS IN THE CHAIR, CHECKED HER O2 ON RA DROPPED TO 87%. O2 WAS DELIVERED BY [facility].
[2017-02-15 16:07] VITALS: BP 119/56
[2017-02-15] MEDS ORDERED: DOXYCYC MONO100 M2 PO (18:08)
[2017-02-15] MEDS ORDERED: PREDNISONE10 MG PO (18:08)
--- NOTE | 2017-02-15 18:30 | NUR ---
IV SITE DISCONTINUED CATHETER INTACT. NO REDNESS OR EDEMA. TELE DISCONTINUED. DISCHARGE INSTRUCTIONS GIVEN TO PT AND FAMILY Discharge instructions given. Patient verbalizes understanding of same. Discharged in stable condition via Wheelchair to Home with family. All belongings sent with pt.
== END 2017-02-15 18:39 | disposition home or self-care (01) | DRG 291 ==
LOC: ED 09:47 → ED-I 11:49 → ED 12:21 → MS2 12:22
PROVIDERS: Emergency Medicine; Internal Medicine; Nurse Practitioner Family; ADMIT Internal Medicine; ATTEND Internal Medicine
DX: I13.0 Hypertensive heart and chronic kidney disease with heart failure and stage 1 through stage 4 chronic kidney disease, or unspecified chronic kidney disease (principal); I50.33 Acute on chronic diastolic (congestive) heart failure; J96.21 Acute and chronic respiratory failure with hypoxia; N17.9 Acute kidney failure, unspecified; J18.9 Pneumonia, unspecified organism; J44.0 Chronic obstructive pulmonary disease with (acute) lower respiratory infection; N18.3 Chronic kidney disease, stage 3 (moderate); E11.22 Type 2 diabetes mellitus with diabetic chronic kidney disease; I48.2 Chronic atrial fibrillation; J44.1 Chronic obstructive pulmonary disease with (acute) exacerbation; N39.0 Urinary tract infection, site not specified; D63.8 Anemia in other chronic diseases classified elsewhere; I25.10 Atherosclerotic heart disease of native coronary artery without angina pectoris; I25.2 Old myocardial infarction; I73.9 Peripheral vascular disease, unspecified; M19.90 Unspecified osteoarthritis, unspecified site; E78.5 Hyperlipidemia, unspecified; H35.30 Unspecified macular degeneration; E03.9 Hypothyroidism, unspecified; B96.20 Unspecified Escherichia coli [E. coli] as the cause of diseases classified elsewhere; S80.812A Abrasion, left lower leg, initial encounter; W22.8XXA Striking against or struck by other objects, initial encounter; Y93.89 Activity, other specified; Y92.238 Other place in hospital as the place of occurrence of the external cause; Z79.4 Long term (current) use of insulin; Z87.891 Personal history of nicotine dependence; Z79.01 Long term (current) use of anticoagulants; Z86.73 Personal history of transient ischemic attack (TIA), and cerebral infarction without residual deficits; Z95.5 Presence of coronary angioplasty implant and graft; Z95.1 Presence of aortocoronary bypass graft
CPT/HCPCS: J0885

== ENCOUNTER 2017-02-28 14:42 | Inpatient (IN) | payer MEDICARE, BC ==
[~2017-02-28] VITALS: Ht 167.6 cm; Wt 84.6 kg
[~2017-02-28 14:42] MED LIST changes: +DOXYCYC MONO100 M2 PO; +WARFARIN2 MG PO; +WARFARIN4 MG PO
--- NOTE | 2017-02-28 15:26 | NUR ---
PT BROUGHT TO ROOM 11, EKG DONE. EDP AWARE.
--- NOTE | 2017-02-28 16:30 | NUR ---
PATIENT RESTING AWAITING MD FOR EVALUATION
[2017-02-28 16:36] LABS: HEMATOCRIT 30.6 % (37.0-47.0); HEMOGLOBIN 9.2 g/dl (12.0-16.0); IMMATURE GRANULOCYTES 0.5 % (0.0-1.0); MEAN CORPUSCULAR HGB 28.6 pG CALC (26.0-32.0); MEAN CORPUSCULAR HGB CONC 30.1 g/L CALC (32.0-36.0); NEUT# 6.4 thou/uL (2.00-7.15); RED BLOOD COUNT 3.22 mill/uL (4.20-5.60); RED CELL DISTRI WIDTH 16.5 % (11.5-15.5)
[2017-02-28 16:59] LABS: ALBUMIN 3.4 g/dL (3.2-5.0); BILIRUBIN, TOTAL 0.2 mg/dL (0.0-1.4); CALCIUM 9.3 mg/dL (8.4-10.2); CREATININE 2.6 mg/dL (0.5-1.0); POTASSIUM 4.9 mmol/l (3.5-5.1)
--- NOTE | 2017-02-28 17:17 | NUR ---
PATIENT RESTING AWAITING LAB AND RADIOLOGY RESULTS DENIES ANY CHEST PAIN AT THIS TIME
--- NOTE | 2017-02-28 17:51 | NUR ---
SBAR PRINTED TO FLOOR
--- NOTE | 2017-02-28 18:10 | NUR ---
REPORT CALLED TO MED [facility] AND PATIENT TRANSPORTED
--- NOTE | 2017-02-28 18:36 | NUR ---
PT ARRIVED TO THE UNIT VIA WC ACCOMPANIED BY STAFF.
--- NOTE | 2017-02-28 19:15 | NUR ---
PT SITTING UP ON SIDE OF BED EATING DINNER. PT IS ALERT AND ORIENTED X3. PERRLA. RESP ARE EVEN AND UNLABORED. NO DISTRESS NOTED. LUNGS ARE CLEAR. HR REGULAR. PULSES PALPABLE THROUGHOUT. BS ACTIVE. PT REPORTS A BOWEL MOVEMENT EARLIER TODAY. #20 LAC. NO REDNESS OR EDEMA NOTED. WILL CONTINUE TO MONITOR. SKIN TEAR TO LEFT LEG. WILL TAKE PICTURES AND PLACE ON CHART
[2017-02-28 19:35] VITALS: BP 149/63
[2017-02-28 23:20] VITALS: BP 113/65
[2017-03-01] VITALS (10 sets, daily range): BP systolic 121–151; BP diastolic 42–78
--- NOTE | 2017-03-01 | NUR ---
PT SITTING UP ON SIDE OF BED. PT STATES THAT SHE IS UNABLE TO SLEEP. REQUESTED JUICE AND SMITHA CRACKERS. SNACK PROVIDED. WILL CONTINUE TO MONITOR
--- NOTE | 2017-03-01 04:03 | NUR ---
PT RESTING IN BED WITH EYES CLOSED. RESP ARE EVEN AND UNLABORED. NO DISTRESS NOTED. WILL CONTINUE TO MONITOR
--- NOTE | 2017-03-01 05:00 | NUR ---
LAB INTO DRAW AM LABS
[2017-03-01 06:18] LABS: HEMATOCRIT 27.2 % (37.0-47.0); HEMOGLOBIN 8.2 g/dl (12.0-16.0); MEAN CELL VOLUME 94.4 fL CALC (80.0-100.0); MEAN CORPUSCULAR HGB 28.5 pG CALC (26.0-32.0); MEAN CORPUSCULAR HGB CONC 30.1 g/L CALC (32.0-36.0); RED BLOOD COUNT 2.88 mill/uL (4.20-5.60); RED CELL DISTRI WIDTH 16.3 % (11.5-15.5)
[2017-03-01 06:43] LABS: CREATININE 2.1 mg/dL (0.5-1.0); POTASSIUM 4.1 mmol/l (3.5-5.1)
--- NOTE | 2017-03-01 08:00 | NUR ---
ASSESSMENT IS COMPLETED: IV SITE IS FREE FROM REDNESS OR EDEMA. TELE MONITOR IN PLACE. BREATH SOUNDS ARE CLEAR, BILATERALLY, NO C/O SOB, HR IS REG,PULSES ARE STRONG X4,ABD IS SOFT WITH ACTIVE BS
[2017-03-01 08:26] LABS: INTERNATIONAL NORMALIZED RATIO 1.7 RATIO (0.7-1.3); PROTHROMBIN TIME 19.1 SECONDS (9.0-12.5)
--- NOTE | 2017-03-01 12:00 | NUR ---
PT IS RELAXING IN BED WITH NO DISTRESS NOTED. IV SITE IS FREE FROM REDNESS OR EDEMA.
--- NOTE | 2017-03-01 15:15 | NUR ---
PT RECEIVING 1ST UNIT OF BLOOD. INFORMED ABOUT THE SIDE EFFECTS. VERBALIZED UNDERSTANDING.
--- NOTE | 2017-03-01 16:00 | NUR ---
PT IS RELAXING IN BED WITH MO DISTRESS NOTED. IV SITE IS FREE FROM REDNESS OR EDEMA.
--- NOTE | 2017-03-01 19:15 | NUR ---
PT SITTING UP ON SIDE OF BED WATCHING TV. PT IS ALERT AND ORIENTED X3. PERRLA. LUNGS ARE CLEAR. RESP ARE EVEN AND UNLABORED. NO DISTRESS NOTED. TELE IN PLACE. HR REGULAR. PULSES PALPABLE THROUGHOUT. NO EDEMA NOTED. BS ACTIVE. PT REPORTS HAVING A NORMAL BM EARLIER TODAY. #20 RAC SALINE LOCKED. NO REDNESS OR EDEMA NOTED. WILL CONTINUE TO MONITOR
--- NOTE | 2017-03-02 | NUR ---
PT RESTING IN BED WITH EYES CLOSED. PT AROUSES EASILY TO VERBAL STIMULI. RESP ARE EVEN AND UNLABORED. NO DISTRESS NOTED. NO COMPLAINTS VOICED AT THIS TIME. WILL CONTINUE TO MONITOR
[2017-03-02 03:29] VITALS: BP 122/57
--- NOTE | 2017-03-02 04:00 | NUR ---
PT RESTING IN BED WITH EYES CLOSED. PT AROUSES EASILY TO VERBAL STIMULI. RESP ARE EVEN AND UNLABORED. NO DISTRESS NOTED. WILL CONTINUE TO MONITOR
[2017-03-02 07:21] LABS: HEMATOCRIT 31.2 % (37.0-47.0); HEMOGLOBIN 9.7 g/dl (12.0-16.0); IMMATURE GRANULOCYTES 0.7 % (0.0-1.0); MEAN CORPUSCULAR HGB 29.2 pG CALC (26.0-32.0); MEAN CORPUSCULAR HGB CONC 31.1 g/L CALC (32.0-36.0); NEUT# 5.46 thou/uL (2.00-7.15); RED BLOOD COUNT 3.32 mill/uL (4.20-5.60); RED CELL DISTRI WIDTH 16.1 % (11.5-15.5)
--- NOTE | 2017-03-02 07:45 | NUR ---
ASSESSMENT IS COMPLETED; PT HAD BEEN RESTING IN BED WITH NO DISTRESS NOTED, IV SITE IS FREE FROM REDNESS OR EDEMA. TELE MONITOR IN PLACE. CONTINUE TO OSBERVE AND MONITOR.
[2017-03-02 08:00] VITALS: BP 142/66
[2017-03-02 08:03] LABS: CALCIUM 9.1 mg/dL (8.4-10.2); CREATININE 1.9 mg/dL (0.5-1.0); MAGNESIUM 1.9 mg/dL (1.6-2.3); POTASSIUM 4.3 mmol/l (3.5-5.1)
[2017-03-02 08:08] LABS: INTERNATIONAL NORMALIZED RATIO 1.5 RATIO (0.7-1.3)
[2017-03-02 11:22] VITALS: BP 119/50
--- NOTE | 2017-03-02 12:15 | NUR ---
PT HAS BEEN RELAXING IN BED WITH MO DISTRESS NOTED,. IV SITE IS FREE FROM REDNESS OR EDEMA.
--- NOTE | 2017-03-02 14:42 | NUR ---
Procrit was due 03/02/16 but pat is inpatient and was transfused PRBC. We will reschedule procrit to 03/05/2016
[2017-03-02 15:31] VITALS: BP 138/67
--- NOTE | 2017-03-02 15:47 | NUR ---
Spoke to pt for medication discharge education. 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 However, she does not take bumetanide PRN but on schedule, daily. Also, she says she takes her potassium three times a week instead of Q48H. Pt informed me that she rarely needs her sliding scale insulin and controls her sugar level well with her diet. She also states that she has DuoNeb at home that she uses twice a day and oxygen that she's only needed once. Pt had no further questions or concerns and was happy to go home.
--- NOTE | 2017-03-02 15:56 | NUR ---
DISCHARGE INSTRUCTIONS GIVEN TO PT . VERBALIZED UNDERSTANDING,. IV SITE WAS DISCONTINEUD CATHETER INTACT, NO REDNESS OR EDEMA.
--- NOTE | 2017-03-02 16:14 | NUR ---
PT BEING TRANSPORTED TO UP FRONT FAMILY WILL BE TAKING PT HOME. Discharge instructions given. Patient verbalizes understanding of same. Discharged in stable condition via Wheelchair to Home with family. All belongings sent with pt.WILL HAVE [facility]
== END 2017-03-02 16:10 | disposition home health service (06) | DRG 292 ==
LOC: ED 14:42 → ED-I 17:05 → ED 18:13 → ED-I 18:16 → ED 18:25 → MS2 18:26
PROVIDERS: Emergency Medicine; Nurse Practitioner Family; ADMIT Internal Medicine; ATTEND Internal Medicine
PROC: 30233N1 Transfusion of Nonautologous Red Blood Cells into Peripheral Vein, Percutaneous Approach (ICD-10-PCS; principal; 2017-03-01)
DX: I13.0 Hypertensive heart and chronic kidney disease with heart failure and stage 1 through stage 4 chronic kidney disease, or unspecified chronic kidney disease (principal); N17.9 Acute kidney failure, unspecified; E11.22 Type 2 diabetes mellitus with diabetic chronic kidney disease; I48.2 Chronic atrial fibrillation; N25.81 Secondary hyperparathyroidism of renal origin; I50.32 Chronic diastolic (congestive) heart failure; J44.9 Chronic obstructive pulmonary disease, unspecified; R00.1 Bradycardia, unspecified; D63.1 Anemia in chronic kidney disease; T46.2X5A Adverse effect of other antidysrhythmic drugs, initial encounter; T44.7X5A Adverse effect of beta-adrenoreceptor antagonists, initial encounter; T46.1X5A Adverse effect of calcium-channel blockers, initial encounter; I25.10 Atherosclerotic heart disease of native coronary artery without angina pectoris; E78.5 Hyperlipidemia, unspecified; N18.3 Chronic kidney disease, stage 3 (moderate); H35.30 Unspecified macular degeneration; M19.90 Unspecified osteoarthritis, unspecified site; Z87.891 Personal history of nicotine dependence; I25.2 Old myocardial infarction; Z95.1 Presence of aortocoronary bypass graft; Z79.01 Long term (current) use of anticoagulants; Z95.5 Presence of coronary angioplasty implant and graft; Z86.73 Personal history of transient ischemic attack (TIA), and cerebral infarction without residual deficits
CPT/HCPCS: G0328; G0378; P9016

== ENCOUNTER 2017-03-11 21:09 | Emergency (ER) | payer MEDICARE, BC ==
[~2017-03-11] VITALS: Ht 167.6 cm; Wt 81.8 kg
--- NOTE | 2017-03-11 21:31 | NUR ---
BREATHING TREATMENT GIVEN. BREATHING TECH. FOR GOOD DEPOSITION TO THE LUNGS AND SHORTNESS OF BREATH.
[2017-03-11 21:52] LABS: HEMATOCRIT 36.8 % (37.0-47.0); HEMOGLOBIN 11.2 g/dl (12.0-16.0); IMMATURE GRANULOCYTES 0.6 % (0.0-1.0); MEAN CELL VOLUME 93.9 fL CALC (80.0-100.0); MEAN CORPUSCULAR HGB 28.6 pG CALC (26.0-32.0); MEAN CORPUSCULAR HGB CONC 30.4 g/L CALC (32.0-36.0); NEUT# 11.62 thou/uL (2.00-7.15); RED BLOOD COUNT 3.92 mill/uL (4.20-5.60); RED CELL DISTRI WIDTH 15.9 % (11.5-15.5)
[2017-03-11 21:58] LABS: ALBUMIN 3.8 g/dL (3.2-5.0); BILIRUBIN, TOTAL 0.3 mg/dL (0.0-1.4); CREATININE 1.4 mg/dL (0.5-1.0); POTASSIUM 4.5 mmol/l (3.5-5.1); TOTAL PROTEIN 6.3 g/dL (6.3-8.2)
[2017-03-11 22:00] LABS: INFLUENZA A NONE DETECTED (NONE DETECT); INFLUENZA B NONE DETECTED (NONE DETECT)
[2017-03-11 23:06] LABS: INTERNATIONAL NORMALIZED RATIO 1.7 RATIO (0.7-1.3)
[2017-03-11 23:56] VITALS: BP 132/63
--- NOTE | 2017-03-14 16:25 | NUR ---
Faxed culture results to Toshia (Nurse) at [facility]
== END 2017-03-11 23:57 | disposition short-term general hospital (02) ==
LOC: ED 21:09
PROVIDERS: Emergency Medicine
DX: J44.0 Chronic obstructive pulmonary disease with (acute) lower respiratory infection (principal); J18.9 Pneumonia, unspecified organism; R74.8 Abnormal levels of other serum enzymes; M19.90 Unspecified osteoarthritis, unspecified site; E11.22 Type 2 diabetes mellitus with diabetic chronic kidney disease; I12.9 Hypertensive chronic kidney disease with stage 1 through stage 4 chronic kidney disease, or unspecified chronic kidney disease; N18.3 Chronic kidney disease, stage 3 (moderate); K21.9 Gastro-esophageal reflux disease without esophagitis; I25.10 Atherosclerotic heart disease of native coronary artery without angina pectoris; H54.60 Unqualified visual loss, one eye, unspecified; J44.9 Chronic obstructive pulmonary disease, unspecified; H35.30 Unspecified macular degeneration; E03.9 Hypothyroidism, unspecified; Z95.5 Presence of coronary angioplasty implant and graft; Z95.1 Presence of aortocoronary bypass graft; Z86.73 Personal history of transient ischemic attack (TIA), and cerebral infarction without residual deficits
CPT/HCPCS: J1956

== ENCOUNTER 2017-03-15 11:48 | Emergency (ER) | payer MEDICARE, BC ==
[~2017-03-15] VITALS: Ht 167.6 cm; Wt 81.8 kg
[2017-03-15 12:43] LABS: HEMATOCRIT 37.1 % (37.0-47.0); HEMOGLOBIN 11.1 g/dl (12.0-16.0); MEAN CELL VOLUME 93.5 fL CALC (80.0-100.0); MEAN CORPUSCULAR HGB CONC 29.9 g/L CALC (32.0-36.0); NEUT# 3.38 thou/uL (2.00-7.15); RED BLOOD COUNT 3.97 mill/uL (4.20-5.60); RED CELL DISTRI WIDTH 15.7 % (11.5-15.5)
[2017-03-15 13:00] LABS: ALBUMIN 3.6 g/dL (3.2-5.0); CREATININE 1.8 mg/dL (0.5-1.0); POTASSIUM 4.5 mmol/l (3.5-5.1)
[2017-03-15 13:03] LABS: INTERNATIONAL NORMALIZED RATIO 1.7 RATIO (0.7-1.3); PROTHROMBIN TIME 18.8 SECONDS (9.0-12.5)
[2017-03-15 13:23] VITALS: BP 156/81
== END 2017-03-15 13:10 | disposition short-term general hospital (02) ==
LOC: ED 11:48
PROVIDERS: Emergency Medicine
DX: I63.9 Cerebral infarction, unspecified (principal); G83.24 Monoplegia of upper limb affecting left nondominant side; I12.9 Hypertensive chronic kidney disease with stage 1 through stage 4 chronic kidney disease, or unspecified chronic kidney disease; N18.3 Chronic kidney disease, stage 3 (moderate); R29.704 NIHSS score 4; E11.9 Type 2 diabetes mellitus without complications; Z79.4 Long term (current) use of insulin

== ENCOUNTER 2017-05-02 09:12 | Emergency (ER) | payer MEDICARE, BC ==
[~2017-05-02] VITALS: Ht 167.6 cm; Wt 81.5 kg
[2017-05-02 09:57] LABS: HEMATOCRIT 37.1 % (37.0-47.0); HEMOGLOBIN 11.3 g/dl (12.0-16.0); IMMATURE GRANULOCYTES 1.3 % (0.0-1.0); MEAN CELL VOLUME 94.6 fL CALC (80.0-100.0); MEAN CORPUSCULAR HGB 28.8 pG CALC (26.0-32.0); MEAN CORPUSCULAR HGB CONC 30.5 g/L CALC (32.0-36.0); NEUT# 8.32 thou/uL (2.00-7.15); RED BLOOD COUNT 3.92 mill/uL (4.20-5.60); RED CELL DISTRI WIDTH 16.2 % (11.5-15.5)
[2017-05-02 10:14] LABS: INTERNATIONAL NORMALIZED RATIO 1.1 RATIO (0.7-1.3)
[2017-05-02 10:17] LABS: ALBUMIN 3.8 g/dL (3.2-5.0); BILIRUBIN, TOTAL 0.3 mg/dL (0.0-1.4); CREATININE 1.5 mg/dL (0.5-1.0); POTASSIUM 4.8 mmol/l (3.5-5.1); TOTAL PROTEIN 6.7 g/dL (6.3-8.2)
[2017-05-02] MEDS ORDERED: HYDROCO/APAP1 TA9 PO (12:28)
[2017-05-02] MEDS ORDERED: MOTRIN400 MG PO (12:28)
[2017-05-02 12:41] VITALS: BP 169/88
== END 2017-05-02 13:14 | disposition home or self-care (01) ==
LOC: ED 09:12
PROVIDERS: Family Medicine
PROC: 0HQ2XZZ Repair Right Ear Skin, External Approach (ICD-10-PCS; principal; 2017-05-02)
DX: S01.311A Laceration without foreign body of right ear, initial encounter (principal); S61.411A Laceration without foreign body of right hand, initial encounter; S10.93XA Contusion of unspecified part of neck, initial encounter; S00.83XA Contusion of other part of head, initial encounter; S80.02XA Contusion of left knee, initial encounter; S80.01XA Contusion of right knee, initial encounter; S20.229A Contusion of unspecified back wall of thorax, initial encounter; M19.90 Unspecified osteoarthritis, unspecified site; E11.22 Type 2 diabetes mellitus with diabetic chronic kidney disease; I12.9 Hypertensive chronic kidney disease with stage 1 through stage 4 chronic kidney disease, or unspecified chronic kidney disease; N18.3 Chronic kidney disease, stage 3 (moderate); K21.9 Gastro-esophageal reflux disease without esophagitis; I25.10 Atherosclerotic heart disease of native coronary artery without angina pectoris; M54.5 Low back pain; J45.909 Unspecified asthma, uncomplicated; H54.40 Blindness, one eye, unspecified eye; E03.9 Hypothyroidism, unspecified; W18.2XXA Fall in (into) shower or empty bathtub, initial encounter; Y92.002 Bathroom of unspecified non-institutional (private) residence as the place of occurrence of the external cause; Z86.73 Personal history of transient ischemic attack (TIA), and cerebral infarction without residual deficits; Z95.1 Presence of aortocoronary bypass graft; Z95.5 Presence of coronary angioplasty implant and graft

== ENCOUNTER 2017-10-29 09:44 | Outpatient (RCR) | payer MEDICARE, BC ==
--- NOTE | 2017-10-28 09:14 | NUR ---
PT TO ER VIA PERSONAL WALKER. MEDICATION ADMINISTERED DIRECTED. PT THANKS STAFF FOR CARE. PT AMBULATES OUT OF ED WITH STABLE GAIT.
[2017-10-28 09:15] VITALS: BP 167/73
[~2017-10-29 09:44] MED LIST changes: +ESCITALOPRAM OX10 MG PO; +MOTRIN400 MG PO
== END 2017-10-29 23:59 | disposition home or self-care (01) ==
LOC: INF 09:44 → ED 09:44 → INF 23:59
PROVIDERS: ATTEND Internal Medicine
DX: I48.91 Unspecified atrial fibrillation (principal)

== ENCOUNTER 2017-11-28 18:42 | Emergency (ER) | payer MEDICARE, BC ==
[~2017-11-28] VITALS: Ht 165.1 cm; Wt 80.0 kg
[2017-11-28 19:48] LABS: IMMATURE GRANULOCYTES 0.2 % (0.0-5.0); MEAN CORPUSCULAR HGB 31.2 pG CALC (26.0-32.0); MEAN CORPUSCULAR HGB CONC 30.3 g/L CALC (32.0-36.0); NEUT# 3.68 thou/uL (2.00-7.15); RED BLOOD COUNT 3.01 mill/uL (4.20-5.60); RED CELL DISTRI WIDTH 13.8 % (11.5-15.5)
[2017-11-28] MEDS ORDERED: SINEMET 25/1001 TA1 PO (19:48)
[2017-11-28 19:50] LABS: HEMOGLOBIN 9.4 g/dl (12.0-16.0)
[2017-11-28 20:06] LABS: CREATININE 1.8 mg/dL (0.5-1.0)
[2017-11-28 20:10] LABS: ACT PARTIAL THROMBO TIME 41.2 SECONDS (20.0-32.5); PROTHROMBIN TIME 27.4 SECONDS (9.0-12.5)
[2017-11-28 20:17] LABS: INTERNATIONAL NORMALIZED RATIO 2.6 RATIO (0.7-1.3)
[2017-11-28 20:51] VITALS: BP 126/64
== END 2017-11-28 21:15 | disposition home or self-care (01) ==
LOC: ED 18:42
PROVIDERS: Family Medicine
DX: G89.18 Other acute postprocedural pain (principal); M25.561 Pain in right knee; M25.461 Effusion, right knee; M79.661 Pain in right lower leg

== ENCOUNTER 2018-01-05 20:21 | Inpatient (IN) | payer MEDICARE, BC ==
[~2018-01-05] VITALS: Ht 165.1 cm; Wt 85.0 kg
[2018-01-05 21:43] LABS: HEMATOCRIT 35.8 % (37.0-47.0); HEMOGLOBIN 11.3 g/dl (12.0-16.0); IMMATURE GRANULOCYTES 0.3 % (0.0-5.0); MEAN CELL VOLUME 99.2 fL CALC (80.0-100.0); MEAN CORPUSCULAR HGB 31.3 pG CALC (26.0-32.0); MEAN CORPUSCULAR HGB CONC 31.6 g/L CALC (32.0-36.0); NEUT# 6.17 thou/uL (2.00-7.15); RED BLOOD COUNT 3.61 mill/uL (4.20-5.60); RED CELL DISTRI WIDTH 13.1 % (11.5-15.5)
[2018-01-05 22:20] LABS: ALBUMIN 3.4 g/dL (3.2-5.0); BILIRUBIN, TOTAL 0.3 mg/dL (0.0-1.4); CREATININE 1.7 mg/dL (0.5-1.0); POTASSIUM 4.1 mmol/l (3.5-5.1)
[2018-01-05 23:05] LABS: URINE BILIRUBIN - DIPSTICK NEGATIVE (NEGATIVE); URINE BLOOD DIPSTICK NEGATIVE (NEGATIVE); URINE COLOR YELLOW; URINE GLUCOSE - DIPSTICK NEGATIVE (NEGATIVE); URINE KETONE NEGATIVE (NEGATIVE); URINE NITRITE - DIPSTICK NEGATIVE (Negative); URINE PROTEIN - DIPSTICK TRACE mg/dL (NEG-TRACE); URINE SPECIFIC GRAVITY 1.015; URINE UROBILINOGEN - DIPSTICK 0.2 E.U./dL (0.2)
[2018-01-05 23:23] LABS: URINE CLARITY CLEAR; URINE LEUK ESTERASE SMALL (NEGATIVE); URINE SQUAMOUS EPITHELIAL CELL RARE EPI/hpf (0-FEW)
[2018-01-05 23:24] LABS: URINE BACTERIA RARE hpf
[2018-01-06] VITALS (12 sets, daily range): BP systolic 143–183; BP diastolic 56–87
[2018-01-06] MEDS ORDERED: ASPIRIN81 MG PO (04:13)
[2018-01-06] MEDS ORDERED: ADVAIR DISK1 INH (04:14)
[2018-01-06] MEDS ORDERED: VIT D-2 IM (04:30)
[2018-01-06] MEDS ORDERED: SYSTANE ULTRA OP (04:31)
[2018-01-06] MEDS ORDERED: OXYCODONE HCL5 MG PO (04:33)
[2018-01-06] MEDS ORDERED: MINOCYCLINE100 MG PO (04:34)
[2018-01-06] MEDS ORDERED: IPRATROPIU0.5 MG/3 M IN (04:35)
[2018-01-06] MEDS ORDERED: [UNRECOGNIZED DRUG - OTHER] (04:36)
[2018-01-06 05:16] LABS: HEMATOCRIT 33.1 % (37.0-47.0); HEMOGLOBIN 10.4 g/dl (12.0-16.0); IMMATURE GRANULOCYTES 0.3 % (0.0-5.0); MEAN CELL VOLUME 99.4 fL CALC (80.0-100.0); MEAN CORPUSCULAR HGB 31.2 pG CALC (26.0-32.0); MEAN CORPUSCULAR HGB CONC 31.4 g/L CALC (32.0-36.0); NEUT# 4.46 thou/uL (2.00-7.15); RED BLOOD COUNT 3.33 mill/uL (4.20-5.60); RED CELL DISTRI WIDTH 13.2 % (11.5-15.5)
[2018-01-06 05:24] LABS: INTERNATIONAL NORMALIZED RATIO 3.1 RATIO (0.7-1.3); PROTHROMBIN TIME 31.7 SECONDS (9.0-12.5)
[2018-01-06 05:40] LABS: ALBUMIN 2.8 g/dL (3.2-5.0); BILIRUBIN, TOTAL 0.3 mg/dL (0.0-1.4); CREATININE 1.6 mg/dL (0.5-1.0); POTASSIUM 3.8 mmol/l (3.5-5.1); TOTAL PROTEIN 5.2 g/dL (6.3-8.2)
[2018-01-07 04:45] VITALS: BP 134/71
[2018-01-07 06:12] LABS: HEMATOCRIT 38.4 % (37.0-47.0); IMMATURE GRANULOCYTES 0.5 % (0.0-5.0); MEAN CELL VOLUME 100.3 fL CALC (80.0-100.0); MEAN CORPUSCULAR HGB 31.3 pG CALC (26.0-32.0); MEAN CORPUSCULAR HGB CONC 31.3 g/L CALC (32.0-36.0); NEUT# 21.98 thou/uL (2.00-7.15); RED BLOOD COUNT 3.83 mill/uL (4.20-5.60); RED CELL DISTRI WIDTH 13.6 % (11.5-15.5)
[2018-01-07 06:40] LABS: INTERNATIONAL NORMALIZED RATIO 2.6 RATIO (0.7-1.3); PROTHROMBIN TIME 27.3 SECONDS (9.0-12.5)
[2018-01-07 06:48] LABS: ALBUMIN 2.8 g/dL (3.2-5.0); BILIRUBIN, TOTAL 0.2 mg/dL (0.0-1.4); POTASSIUM 4.5 mmol/l (3.5-5.1); TOTAL PROTEIN 5.3 g/dL (6.3-8.2)
[2018-01-07 06:51] LABS: CREATININE 2.8 mg/dL (0.5-1.0)
[2018-01-07 07:30] LABS: MAGNESIUM 2.1 mg/dL (1.6-2.3)
[2018-01-07 07:36] VITALS: BP 137/57
[2018-01-07 11:30] VITALS: BP 111/63
[2018-01-07 13:31] LABS: AMYLASE 1255 u/l (30-110)
[2018-01-07 13:33] LABS: LIPASE 9769 u/l (23-300)
[2018-01-07 15:00] VITALS: BP 125/75
[2018-01-07 20:00] VITALS: BP 155/75
[2018-01-08 00:23] VITALS: BP 147/72
[2018-01-08 04:58] VITALS: BP 132/73
[2018-01-08 06:31] LABS: INTERNATIONAL NORMALIZED RATIO 2.5 RATIO (0.7-1.3); PROTHROMBIN TIME 25.7 SECONDS (9.0-12.5)
[2018-01-08 06:34] LABS: AMYLASE 666 u/l (30-110)
[2018-01-08 06:44] LABS: LIPASE 3404 u/l (23-300)
[2018-01-08 07:14] LABS: ALBUMIN 3.1 g/dL (3.2-5.0); POTASSIUM 4.6 mmol/l (3.5-5.1)
[2018-01-08 07:16] LABS: CREATININE 3.9 mg/dL (0.5-1.0)
[2018-01-08 08:00] VITALS: BP 148/42
[2018-01-08 11:51] VITALS: BP 167/58
[2018-01-08 15:15] VITALS: BP 153/68
[2018-01-08 20:11] VITALS: BP 141/69
[2018-01-09] VITALS: BP 113/49
[2018-01-09 05:19] VITALS: BP 156/65
[2018-01-09 07:05] LABS: HEMATOCRIT 33.3 % (37.0-47.0); HEMOGLOBIN 10.4 g/dl (12.0-16.0); MEAN CELL VOLUME 100.3 fL CALC (80.0-100.0); MEAN CORPUSCULAR HGB 31.3 pG CALC (26.0-32.0); MEAN CORPUSCULAR HGB CONC 31.2 g/L CALC (32.0-36.0); NEUT# 18.89 thou/uL (2.00-7.15); RED BLOOD COUNT 3.32 mill/uL (4.20-5.60); RED CELL DISTRI WIDTH 13.8 % (11.5-15.5)
[2018-01-09 07:23] LABS: AMYLASE 109 u/l (30-110); BILIRUBIN, TOTAL 0.4 mg/dL (0.0-1.4); LIPASE 510 u/l (23-300); MAGNESIUM 2.1 mg/dL (1.6-2.3); POTASSIUM 4.2 mmol/l (3.5-5.1); TOTAL PROTEIN 4.6 g/dL (6.3-8.2)
[2018-01-09 07:26] LABS: ALBUMIN 2.3 g/dL (3.2-5.0); CREATININE 2.7 mg/dL (0.5-1.0)
[2018-01-09 07:40] LABS: INTERNATIONAL NORMALIZED RATIO 1.7 RATIO (0.7-1.3); PROTHROMBIN TIME 17.8 SECONDS (9.0-12.5)
[2018-01-09 08:54] VITALS: BP 148/74
[2018-01-09 12:11] VITALS: BP 153/57
[2018-01-09 16:18] VITALS: BP 154/49
[2018-01-09 20:26] VITALS: BP 154/66
[2018-01-10 00:38] VITALS: BP 162/66
[2018-01-10 05:36] VITALS: BP 159/62
[2018-01-10 08:58] VITALS: BP 135/56
[2018-01-10 11:45] VITALS: BP 127/53
== END 2018-01-10 12:35 | DRG 439 ==
LOC: ED 20:21 → ED-I 22:47 → ED 23:31 → MS2 23:32
PROVIDERS: Emergency Medicine; Internal Medicine Nephrology; ADMIT Internal Medicine Nephrology; ATTEND Internal Medicine Nephrology
DX: K85.90 Acute pancreatitis without necrosis or infection, unspecified (principal); N17.9 Acute kidney failure, unspecified; N25.81 Secondary hyperparathyroidism of renal origin; L03.115 Cellulitis of right lower limb; M79.81 Nontraumatic hematoma of soft tissue; T45.515A Adverse effect of anticoagulants, initial encounter; I12.9 Hypertensive chronic kidney disease with stage 1 through stage 4 chronic kidney disease, or unspecified chronic kidney disease; E11.22 Type 2 diabetes mellitus with diabetic chronic kidney disease; N18.3 Chronic kidney disease, stage 3 (moderate); I25.10 Atherosclerotic heart disease of native coronary artery without angina pectoris; D63.1 Anemia in chronic kidney disease; I48.0 Paroxysmal atrial fibrillation; E11.51 Type 2 diabetes mellitus with diabetic peripheral angiopathy without gangrene; E78.5 Hyperlipidemia, unspecified; H35.30 Unspecified macular degeneration; J44.9 Chronic obstructive pulmonary disease, unspecified; H54.40 Blindness, one eye, unspecified eye; E03.9 Hypothyroidism, unspecified; E66.9 Obesity, unspecified; E86.9 Volume depletion, unspecified; Z23 Encounter for immunization; Z86.73 Personal history of transient ischemic attack (TIA), and cerebral infarction without residual deficits; Z68.31 Body mass index [BMI] 31.0-31.9, adult; Z95.5 Presence of coronary angioplasty implant and graft; Z95.1 Presence of aortocoronary bypass graft; Z87.891 Personal history of nicotine dependence; Z96.651 Presence of right artificial knee joint
CPT/HCPCS: G0378; J3370

== ENCOUNTER 2018-02-03 10:39 | Observation (INO) | payer MEDICARE, BC ==
[~2018-02-03] VITALS: Ht 165.1 cm; Wt 84.8 kg
[~2018-02-03 10:39] MED LIST changes: +ASPIRIN81 MG PO; +IPRATROPIU0.5 MG/3 M IN; +MINOCYCLINE100 MG PO; +OXYCODONE HCL5 MG PO; +SYSTANE ULTRA OP; +VIT D-2 IM; +[UNRECOGNIZED DRUG - OTHER]
--- NOTE | 2018-02-03 10:50 | NUR ---
PT TO ROOM VIA WHEELCHAIR.
--- NOTE | 2018-02-03 11:10 | NUR ---
PATIENT REPORTS NON-SYNCOPAL FALL THIS AM IN BATHROOM. REPORTS TRIPPING OVER CHARGE, HITTING RIGHT KNEE CREATING LAGRE SKIN TEAR AND HITTING HEAD. DENIES ANY LOC. REPORTS BEING ON BLOOD THINNERS. PATIENT IS ALERT AND ORIENTED X4, REPORTS PAIN 10/10 TO RIGHT KNEE. SALINE SOAKED 4X4 DRESSING APPLIED. REPORTS HAVING BEEN D/C FROM HOSPITAL/REHAB YESTERDAY AND PICC LINE TO RIGHT UPPER ARM D/C, HAS DRESSING TO AREA. STATES BEING IN REHAB FOR RIGHT KNEE REPLACEMENT (DONE NOV 2017) COMPLICATIONS (CELLULITIS) AND BEING ON IV ANTIBIOTICS. IV SITE TO LFA #20, LABS COLLECTED. CALL LIGHT GIVEN. WILL CONTINUE TO MONITOR.
[2018-02-03] MEDS ORDERED: AMLODIPINE5 MG PO (11:11)
[2018-02-03] MEDS ORDERED: VITAMIN D50000 UNIT PO (11:15)
--- NOTE | 2018-02-03 11:15 | NUR ---
PATIENT HAS SKIN TEAR, IN > PATTERN MEASURING 12 CM X 8 CM.
[2018-02-03] MEDS ORDERED: EZETIMIBE10 MG PO (11:26)
[2018-02-03] MEDS ORDERED: ZENPEP5000 UNIT PO (11:30)
[2018-02-03 11:38] LABS: HEMOGLOBIN 9.7 g/dl (12.0-16.0); IMMATURE GRANULOCYTES 0.3 % (0.0-5.0); MEAN CELL VOLUME 98.2 fL CALC (80.0-100.0); MEAN CORPUSCULAR HGB 29.8 pG CALC (26.0-32.0); MEAN CORPUSCULAR HGB CONC 30.3 g/L CALC (32.0-36.0); NEUT# 6.95 thou/uL (2.00-7.15); RED BLOOD COUNT 3.26 mill/uL (4.20-5.60)
[2018-02-03] MEDS ORDERED: PANTOPRAZOLE SO40 MG PO (11:40)
[2018-02-03 11:52] LABS: POTASSIUM 4.2 mmol/l (3.5-5.1)
--- NOTE | 2018-02-03 12:00 | NUR ---
WOUND TO RIGHT KNEE IRRIGATED WITH 1000 ML OF NS. NO DEBRIS NOTED DURING IRRIGATION. PATIENT TOLERATED WITH MOD DISTRESS.
[2018-02-03 12:04] LABS: CREATININE 1.6 mg/dL (0.5-1.0)
[2018-02-03 12:05] LABS: INTERNATIONAL NORMALIZED RATIO 3.7 RATIO (0.7-1.3); PROTHROMBIN TIME 37.8 SECONDS (9.0-12.5)
--- NOTE | 2018-02-03 12:34 | NUR ---
AT BEDSIDE TO EXAMINE WOUND AFTER IRRIGATION. UNABLE TO APPROXIMATE WOUND. STERI STRIPS APPLIED.
--- NOTE | 2018-02-03 13:12 | NUR ---
DR NG AT BEDSIDE EVALUATING PATIENT
--- NOTE | 2018-02-03 13:30 | NUR ---
ATTEMPT MADE TO CALL REPORT, SPOKE TO DAYRON. STATES "I'LL HAVE HER CALL YOU BACK."
[2018-02-03 14:00] VITALS: BP 127/51
--- NOTE | 2018-02-03 14:05 | NUR ---
WOUND REDRESSED. PATIENT PLACED ON BEDPAN, UNABLE TO URINATE AT THIS TIME. TAKEN OFF BEDPAN.
--- NOTE | 2018-02-03 14:12 | NUR ---
SECOND ATTEMPT MADE TO CALL REPORT, SPOKE TO LIZ. NURSE NOT AVAILABLE.
--- NOTE | 2018-02-03 14:22 | NUR ---
REPORT GIVEN TO WOLFGANG KEYES.
--- NOTE | 2018-02-03 14:30 | NUR ---
PATIENT TRANSPORTED TO [facility] VIA STRETCHER WITH TELE IN PLACE, HANDBAG, CLOTHING, AND SHOES SENT TO [facility] WITH PATIENT. WALI AT BEDSIDE. CARE RELINQUISHED.
[2018-02-03 15:54] VITALS: BP 127/53
--- NOTE | 2018-02-03 17:13 | NUR ---
REPORT RECEIVED FROM SHELBY ROTHMAN ARRIVED ON UNIT @ 1430 VIA STRETCHER AND TRANSFERRED TO BED WITH ASSIST OF 3 STAFF. ALERT AND ORIENTED X 4, C/O PAIN TO RIGHT KNEE AT 5/10, DRESSING TO RIGHT KNEE BLOODY-ALMOST SATURATED. ORIENTED TO ROOM AND CALL ADONAY, DAUGHTER IN ROOM, WILL CONTINUE TO MONITOR.
[2018-02-03 19:11] VITALS: BP 112/48
[2018-02-03 23:58] VITALS: BP 97/58
[2018-02-04 04:14] VITALS: BP 148/49
[2018-02-04 05:08] LABS: HEMATOCRIT 26.4 % (37.0-47.0); HEMOGLOBIN 7.9 g/dl (12.0-16.0); MEAN CELL VOLUME 99.6 fL CALC (80.0-100.0); MEAN CORPUSCULAR HGB 29.8 pG CALC (26.0-32.0); MEAN CORPUSCULAR HGB CONC 29.9 g/L CALC (32.0-36.0); RED BLOOD COUNT 2.65 mill/uL (4.20-5.60); RED CELL DISTRI WIDTH 14.3 % (11.5-15.5)
--- NOTE | 2018-02-04 05:17 | NUR ---
PT RESTING IN BED. NO C/O PAIN. NO DISTRESS NOTED. PT DRG TO RIGHT LEG. MIN DRAINAGE NOTED. BED IN LOWEST POSTION. WILL CONTINUE TO MONITOR.
[2018-02-04 05:36] LABS: CREATININE 1.7 mg/dL (0.5-1.0); MAGNESIUM 1.8 mg/dL (1.6-2.3); POTASSIUM 4.1 mmol/l (3.5-5.1)
[2018-02-04 05:40] LABS: INTERNATIONAL NORMALIZED RATIO 5.3 RATIO (0.7-1.3); PROTHROMBIN TIME 54.7 SECONDS (9.0-12.5)
--- NOTE | 2018-02-04 06:02 | NUR ---
DR AYERS MADE AWARE OF CRITICAL PT/INR 54.7 AND 5.7. AND HGB OF 7.9. NO ORDERS RECIEVED
--- NOTE | 2018-02-04 07:00 | NUR ---
Received report from Nurse Ale Villegas, patient was resting in bed, sleeping with G20 saline lock on left forearm, no discomforts noted at this time.
[2018-02-04 07:51] VITALS: BP 127/57
--- NOTE | 2018-02-04 10:05 | NUR ---
SEEN ON ROUND BY DR. AYERS, NEW ORDERS TO REPEAT HGB/HCT LATER THIS AFTERNOON, CURRENTLY RESTIN IN BED CALL LIGHT WITHIN REACH
[2018-02-04 11:52] VITALS: BP 131/57
[2018-02-04 15:37] VITALS: BP 124/57
--- NOTE | 2018-02-04 16:17 | NUR ---
PATIENT RESTING IN BED, VERBALIZED RELIEF FROM PAIN, THAT TYLENOL WAS EFFECTIVE, FAMILY AT BEDSIDE AND WAS BRINGING PT STOCK MEDS SINEMET. NO DISCOMFORTS NOTED AT THIS TIME, CALL LIGHT WITHIN REACH.
[2018-02-04 16:42] LABS: HEMATOCRIT 26.7 % (37.0-47.0); HEMOGLOBIN 7.9 g/dl (12.0-16.0)
[2018-02-04 19:14] VITALS: BP 122/57
--- NOTE | 2018-02-04 20:15 | NUR ---
PT RESTING IN BED. NO DISTRESS NOTED, PT STATES THAT TYLENOL HASNT BEEN EFFECTIVE FOR PAIN IN RIGHT KNEE. STATED THAT I WILL CONTACT DR AYERS. DRG INTACT NO DRAINAGE NOTED.POC DISCUSSED. MONITORING HGB AND PT/INR.BED IN LOWETS POSTION. CALL LIGHT IN REACH. WILL MONITOR.
--- NOTE | 2018-02-05 | NUR ---
PT DRGING TO L KNEE. CLEANED AND DRG REAPPLIED. PICTURE OBTAINED AND PLACE IN THE CHART. PT A/O. ABLE TO VOICE NEEDS. PAIN MED PROVIDED FOR DRG CHANGE. PAIN MED EFFECTIVE. MEDS TOLERATED WELL. BED IN LOWEST POSITION. CALL LIGHT IN REACH. PT EDUCATED TO CALL FOR ASSIST WHEN NEEDED. WILL MONITOR.
[2018-02-05 00:16] VITALS: BP 118/52
[2018-02-05 04:07] VITALS: BP 123/48
[2018-02-05 05:14] LABS: HEMATOCRIT 25.6 % (37.0-47.0); HEMOGLOBIN 7.7 g/dl (12.0-16.0); MEAN CELL VOLUME 98.8 fL CALC (80.0-100.0); MEAN CORPUSCULAR HGB 29.7 pG CALC (26.0-32.0); MEAN CORPUSCULAR HGB CONC 30.1 g/L CALC (32.0-36.0); RED BLOOD COUNT 2.59 mill/uL (4.20-5.60); RED CELL DISTRI WIDTH 14.2 % (11.5-15.5)
[2018-02-05 05:29] LABS: PROTHROMBIN TIME 20.7 SECONDS (9.0-12.5)
[2018-02-05 05:44] LABS: CREATININE 1.7 mg/dL (0.5-1.0); POTASSIUM 4.1 mmol/l (3.5-5.1)
--- NOTE | 2018-02-05 07:00 | NUR ---
RECEIVED REPORT FROM NURSE Ale VILA, PATIENT WAS RESTING IN BEDF EYED CLOSED, NO DISCOMFORTS NOTED AT THIS TIME, WITH SALINE LOCKL ON LEFT FOREARM, NO IRRITATION NOTED AT SITE. CALL LIGHT WITHIN REACH
--- NOTE | 2018-02-05 07:35 | NUR ---
PT RESTING IN BED WITH EYES CLOSED. DRG CONTINUE TO BE CLEAN,DRY AND INTACT. IV PATENT. BED IN LOWEST POSTION. CALL LIGHT IN REACH.
[2018-02-05 08:00] VITALS: BP 141/63
[2018-02-05 09:06] VITALS: BP 123/48
[2018-02-05] MEDS ORDERED: DOXYCYCL HYC100 MG PO (11:20)
--- NOTE | 2018-02-05 12:38 | NUR ---
AT 11;05 AM PT SEEN BY DR. AYERS, WITH ORDERS MADE FOR DISCHARGE, AND TO DO DRESSING CHANGE BEFORE DISCHARGE. PATIENT IS CURRENTLY EATING LUNCGH, C/O PAIN ON RT LEG, MEDICATED. AWAITING FOR EFFECTIVENESS, PATIENT HAS EVEN UNLABORED BREATHING, CALL LIGHT WITHIN REACH
--- NOTE | 2018-02-05 15:20 | NUR ---
Discharge instructions given. Patient verbalizes understanding of same. Discharged in stable condition via Wheelchair to Home with friend. All belongings sent with pt.
== END 2018-02-05 15:20 ==
LOC: ED 10:39 → ED-I 12:32 → ED 12:44 → MS2 12:45
PROVIDERS: Family Medicine; ADMIT Internal Medicine; ATTEND Internal Medicine
DX: S81.811A Laceration without foreign body, right lower leg, initial encounter (principal); S00.03XA Contusion of scalp, initial encounter; I13.0 Hypertensive heart and chronic kidney disease with heart failure and stage 1 through stage 4 chronic kidney disease, or unspecified chronic kidney disease; E11.22 Type 2 diabetes mellitus with diabetic chronic kidney disease; I50.9 Heart failure, unspecified; N18.3 Chronic kidney disease, stage 3 (moderate); I25.10 Atherosclerotic heart disease of native coronary artery without angina pectoris; J44.9 Chronic obstructive pulmonary disease, unspecified; D64.9 Anemia, unspecified; R79.1 Abnormal coagulation profile; T45.515A Adverse effect of anticoagulants, initial encounter; E03.9 Hypothyroidism, unspecified; I48.91 Unspecified atrial fibrillation; K86.1 Other chronic pancreatitis; E11.51 Type 2 diabetes mellitus with diabetic peripheral angiopathy without gangrene; H54.61 Unqualified visual loss, right eye, normal vision left eye; H35.30 Unspecified macular degeneration; I25.2 Old myocardial infarction; W01.190A Fall on same level from slipping, tripping and stumbling with subsequent striking against furniture, initial encounter; Y92.002 Bathroom of unspecified non-institutional (private) residence as the place of occurrence of the external cause; Z96.651 Presence of right artificial knee joint; Z87.891 Personal history of nicotine dependence; Z95.5 Presence of coronary angioplasty implant and graft; Z86.73 Personal history of transient ischemic attack (TIA), and cerebral infarction without residual deficits; Z95.1 Presence of aortocoronary bypass graft; Z79.01 Long term (current) use of anticoagulants

== ENCOUNTER 2018-02-09 16:44 | Emergency (ER) | payer MEDICARE, BC ==
[~2018-02-09] VITALS: Ht 165.1 cm; Wt 84.5 kg
[~2018-02-09 16:44] MED LIST changes: +EZETIMIBE10 MG PO; +PANTOPRAZOLE SO40 MG PO; +ZENPEP5000 UNIT PO
[2018-02-09] MEDS ORDERED: BACTRIM DS1 TAB PO (20:20)
[2018-02-09 22:10] VITALS: BP 150/76
== END 2018-02-09 22:10 | disposition home or self-care (01) ==
LOC: ED 16:44
DX: S81.011A Laceration without foreign body, right knee, initial encounter (principal); S61.411A Laceration without foreign body of right hand, initial encounter; I25.10 Atherosclerotic heart disease of native coronary artery without angina pectoris; M19.90 Unspecified osteoarthritis, unspecified site; N18.9 Chronic kidney disease, unspecified; J44.9 Chronic obstructive pulmonary disease, unspecified; E03.9 Hypothyroidism, unspecified; I48.91 Unspecified atrial fibrillation; H54.61 Unqualified visual loss, right eye, normal vision left eye; H35.30 Unspecified macular degeneration; W07.XXXA Fall from chair, initial encounter; Y92.009 Unspecified place in unspecified non-institutional (private) residence as the place of occurrence of the external cause; Z95.5 Presence of coronary angioplasty implant and graft; Z96.651 Presence of right artificial knee joint; Z95.1 Presence of aortocoronary bypass graft; Z91.81 History of falling

== ENCOUNTER 2018-02-19 12:25 | Outpatient (REF) | payer MEDICARE, BC ==
[~2018-02-19 12:25] MED LIST changes: +BACTRIM DS1 TAB PO
[2018-02-19 13:11] LABS: PROTHROMBIN TIME 10.7 SECONDS (9.0-12.5)
--- NOTE | 2018-02-19 13:47 | NUR ---
Patient is here for Procrit injection Current Procrit dose HELD on 02/19/18, Previous Procrit dose of 4,000 units on 12/20/17 Current Hgb on 02/19/18: 12.1 Previous Hgb on 02/12/18: 10.9 Previous Iron study on 12/20/17 Next Iron Study on: 03/22/18 Next Hgb due on: 03/05/18 Pt will come back for next dose on 03/05/18 Notes: Pt received blood transfusion on 02/07/18. Pt had recent fall (02/03/18) post knee replacement in October. Pt's BP today was 123/66. Will continue to follow pt's Hgb q2 weeks until stable. Will restart Procrit when Hgb <11. Pt reports feeling weak however, had no additional questions or concerns. QOL assessment Side effects: No Dose adjustments: Yes
== END 2018-02-19 13:28 | disposition home or self-care (01) ==
LOC: INF 12:25
PROVIDERS: Internal Medicine; ATTEND Nurse Practitioner Adult Health
DX: D63.1 Anemia in chronic kidney disease (principal); D50.9 Iron deficiency anemia, unspecified; N18.4 Chronic kidney disease, stage 4 (severe)

== ENCOUNTER 2018-03-18 11:00 | Inpatient (IN) | payer MEDICARE, BC ==
[~2018-03-18] VITALS: Ht 167.6 cm; Wt 78.5 kg
[2018-03-18 12:23] LABS: HEMATOCRIT 33.7 % (37.0-47.0); HEMOGLOBIN 10.4 g/dl (12.0-16.0); IMMATURE GRANULOCYTES 0.5 % (0.0-5.0); MEAN CELL VOLUME 97.1 fL CALC (80.0-100.0); MEAN CORPUSCULAR HGB CONC 30.9 g/L CALC (32.0-36.0); NEUT# 19.09 thou/uL (2.00-7.15); RED BLOOD COUNT 3.47 mill/uL (4.20-5.60)
[2018-03-18 12:33] LABS: CREATININE 1.6 mg/dL (0.5-1.0); POTASSIUM 5.1 mmol/l (3.5-5.1)
[2018-03-18] MEDS ORDERED: ELEQUIST PO (12:54)
[2018-03-18 15:55] LABS: URINE BILIRUBIN - DIPSTICK NEGATIVE (NEGATIVE); URINE BLOOD DIPSTICK TRACE-LYSED (NEGATIVE); URINE COLOR YELLOW; URINE GLUCOSE - DIPSTICK NEGATIVE (NEGATIVE); URINE KETONE NEGATIVE (NEGATIVE); URINE LEUK ESTERASE SMALL (NEGATIVE); URINE NITRITE - DIPSTICK POSITIVE (Negative); URINE PROTEIN - DIPSTICK NEGATIVE (NEG-TRACE); URINE SPECIFIC GRAVITY 1.015; URINE UROBILINOGEN - DIPSTICK 0.2 E.U./dL (0.2)
[2018-03-18 16:07] LABS: URINE BACTERIA MODERATE hpf; URINE RBC 0-2 RBC/hpf (0-5); URINE SQUAMOUS EPITHELIAL CELL FEW EPI/hpf (0-FEW)
[2018-03-18] MEDS ORDERED: ELIQUIS2.5 MG PO (19:39)
[2018-03-18 19:55] VITALS: BP 143/57
[2018-03-19 04:20] VITALS: BP 153/56
[2018-03-19 07:43] VITALS: BP 129/67
[2018-03-19 15:45] VITALS: BP 121/62
[2018-03-19 20:22] VITALS: BP 106/49
[2018-03-20 05:06] VITALS: BP 117/52
[2018-03-20 05:59] LABS: HEMATOCRIT 27.8 % (37.0-47.0); HEMOGLOBIN 8.5 g/dl (12.0-16.0); IMMATURE GRANULOCYTES 0.4 % (0.0-5.0); MEAN CELL VOLUME 97.9 fL CALC (80.0-100.0); MEAN CORPUSCULAR HGB 29.9 pG CALC (26.0-32.0); MEAN CORPUSCULAR HGB CONC 30.6 g/L CALC (32.0-36.0); NEUT# 8.04 thou/uL (2.00-7.15); RED BLOOD COUNT 2.84 mill/uL (4.20-5.60)
[2018-03-20 06:09] LABS: ALKALINE PHOSPHATASE 105 u/l (38-126); AMYLASE < 30 u/l (30-110); ANION GAP 11 (6-22 (CALC)); BILIRUBIN, TOTAL 0.3 mg/dL (0.0-1.4); BUN 22 mg/dL (8-23); BUN/CREATININE RATIO 11 (12-20 (CALC)); CARBON DIOXIDE 27 mmol/l (22-30); CHLORIDE 104 mmol/l (95-108); CREATININE 1.9 mg/dL (0.5-1.0); GFR 25 ML/MIN (>=60 (CALC)); GFR FOR AFR.AMER. 31 ML/MIN (>=60 (CALC)); LIPASE 75 u/l (23-300); MAGNESIUM 1.9 mg/dL (1.6-2.3); POTASSIUM 4.6 mmol/l (3.5-5.1); SGOT/AST 17 u/l (9-36); SODIUM 138 mmol/l (137-146)
[2018-03-20 06:19] LABS: ALBUMIN 2.6 g/dL (3.2-5.0); TOTAL PROTEIN 5.3 g/dL (6.3-8.2)
[2018-03-20 08:30] VITALS: BP 117/56
[2018-03-20 16:00] VITALS: BP 128/67
[2018-03-20 19:22] VITALS: BP 114/51
[2018-03-21] VITALS (7 sets, daily range): BP systolic 106–143; BP diastolic 38–83
[2018-03-21 05:58] LABS: HEMOGLOBIN 8.3 g/dl (12.0-16.0); IMMATURE GRANULOCYTES 0.5 % (0.0-5.0); MEAN CELL VOLUME 97.5 fL CALC (80.0-100.0); MEAN CORPUSCULAR HGB CONC 30.7 g/L CALC (32.0-36.0); NEUT# 9.09 thou/uL (2.00-7.15); RED BLOOD COUNT 2.77 mill/uL (4.20-5.60); RED CELL DISTRI WIDTH 15.9 % (11.5-15.5)
[2018-03-21 06:14] LABS: ALBUMIN 2.5 g/dL (3.2-5.0); BILIRUBIN, TOTAL 0.2 mg/dL (0.0-1.4); CREATININE 1.7 mg/dL (0.5-1.0); POTASSIUM 4.6 mmol/l (3.5-5.1); TOTAL PROTEIN 5.1 g/dL (6.3-8.2)
[2018-03-22 04:31] VITALS: BP 124/68
[2018-03-22 05:57] LABS: CREATININE 1.8 mg/dL (0.5-1.0); POTASSIUM 4.7 mmol/l (3.5-5.1)
[2018-03-22 06:03] LABS: ALBUMIN 3.1 g/dL (3.2-5.0)
[2018-03-22 08:53] VITALS: BP 112/42
[2018-03-22 16:01] VITALS: BP 112/49
[2018-03-22 19:20] VITALS: BP 132/54
[2018-03-23 04:44] VITALS: BP 138/52
[2018-03-23 06:14] LABS: HEMATOCRIT 26.1 % (37.0-47.0); IMMATURE GRANULOCYTES 0.9 % (0.0-5.0); MEAN CELL VOLUME 97.4 fL CALC (80.0-100.0); MEAN CORPUSCULAR HGB 29.9 pG CALC (26.0-32.0); MEAN CORPUSCULAR HGB CONC 30.7 g/L CALC (32.0-36.0); NEUT# 8.36 thou/uL (2.00-7.15); RED BLOOD COUNT 2.68 mill/uL (4.20-5.60); RED CELL DISTRI WIDTH 16.1 % (11.5-15.5)
[2018-03-23 06:29] LABS: ALBUMIN 2.9 g/dL (3.2-5.0); BILIRUBIN, TOTAL 0.2 mg/dL (0.0-1.4); CREATININE 1.6 mg/dL (0.5-1.0); MAGNESIUM 1.9 mg/dL (1.6-2.3); POTASSIUM 4.3 mmol/l (3.5-5.1); TOTAL PROTEIN 5.7 g/dL (6.3-8.2)
[2018-03-23 08:11] VITALS: BP 141/58
[2018-03-23 16:03] VITALS: BP 121/56
[2018-03-23 20:20] VITALS: BP 121/55
[2018-03-24 04:40] VITALS: BP 148/71
[2018-03-24 05:06] LABS: CREATININE 1.5 mg/dL (0.5-1.0); MAGNESIUM 1.9 mg/dL (1.6-2.3); POTASSIUM 4.5 mmol/l (3.5-5.1)
[2018-03-24 05:12] LABS: HEMATOCRIT 26.9 % (37.0-47.0); HEMOGLOBIN 8.2 g/dl (12.0-16.0); IMMATURE GRANULOCYTES 1.3 % (0.0-5.0); MEAN CELL VOLUME 99.3 fL CALC (80.0-100.0); MEAN CORPUSCULAR HGB 30.3 pG CALC (26.0-32.0); MEAN CORPUSCULAR HGB CONC 30.5 g/L CALC (32.0-36.0); NEUT# 6.18 thou/uL (2.00-7.15); RED BLOOD COUNT 2.71 mill/uL (4.20-5.60); RED CELL DISTRI WIDTH 16.3 % (11.5-15.5)
[2018-03-24 07:40] VITALS: BP 152/61
[2018-03-24 15:39] VITALS: BP 120/57
[2018-03-24 20:20] VITALS: BP 138/60
[2018-03-25 04:20] VITALS: BP 142/56
[2018-03-25 09:23] VITALS: BP 136/52
[2018-03-25] MEDS ORDERED: AZACTAM IV (13:51)
[2018-03-25] MEDS ORDERED: DEX IV (13:51)
[2018-03-25 17:01] VITALS: BP 119/57
[2018-03-25 19:10] VITALS: BP 132/58
[2018-03-26 04:25] VITALS: BP 186/87
[2018-03-26 05:41] VITALS: BP 168/80
[2018-03-26 07:30] VITALS: BP 170/72
[2018-03-26 19:20] VITALS: BP 129/70
== END 2018-03-26 19:58 | DRG 603 ==
LOC: ED 11:00 → ED-I 13:51 → ED 18:28 → MS2 18:29
PROVIDERS: Family Medicine; Internal Medicine Nephrology; Nurse Practitioner Family; ADMIT Internal Medicine; ATTEND Internal Medicine Nephrology
PROC: 0SJC3ZZ Inspection of Right Knee Joint, Percutaneous Approach (ICD-10-PCS; 2018-03-18)
PROC: 0S9C3ZZ Drainage of Right Knee Joint, Percutaneous Approach (ICD-10-PCS; principal; 2018-03-19)
DX: L03.115 Cellulitis of right lower limb (principal); N25.81 Secondary hyperparathyroidism of renal origin; N39.0 Urinary tract infection, site not specified; T81.31XD Disruption of external operation (surgical) wound, not elsewhere classified, subsequent encounter; I25.10 Atherosclerotic heart disease of native coronary artery without angina pectoris; J44.9 Chronic obstructive pulmonary disease, unspecified; E11.22 Type 2 diabetes mellitus with diabetic chronic kidney disease; I12.9 Hypertensive chronic kidney disease with stage 1 through stage 4 chronic kidney disease, or unspecified chronic kidney disease; N18.3 Chronic kidney disease, stage 3 (moderate); I48.2 Chronic atrial fibrillation; H35.30 Unspecified macular degeneration; E03.9 Hypothyroidism, unspecified; M19.90 Unspecified osteoarthritis, unspecified site; E11.51 Type 2 diabetes mellitus with diabetic peripheral angiopathy without gangrene; E78.5 Hyperlipidemia, unspecified; G20 Parkinson's disease; D64.9 Anemia, unspecified; E88.09 Other disorders of plasma-protein metabolism, not elsewhere classified; M62.81 Muscle weakness (generalized); L50.0 Allergic urticaria; T36.8X5A Adverse effect of other systemic antibiotics, initial encounter; I25.2 Old myocardial infarction; B96.1 Klebsiella pneumoniae [K. pneumoniae] as the cause of diseases classified elsewhere; Y83.1 Surgical operation with implant of artificial internal device as the cause of abnormal reaction of the patient, or of later complication, without mention of misadventure at the time of the procedure; Z96.651 Presence of right artificial knee joint; Z79.01 Long term (current) use of anticoagulants; Z87.891 Personal history of nicotine dependence; Z86.73 Personal history of transient ischemic attack (TIA), and cerebral infarction without residual deficits; Z95.1 Presence of aortocoronary bypass graft; Z95.5 Presence of coronary angioplasty implant and graft
CPT/HCPCS: G0378; J0885; J1756

== ENCOUNTER → 2018-04-09 | Outpatient (REF) | payer MEDICARE, BC ==
[~2018-04-09] MED LIST changes: +AZACTAM IV; +DEX IV; +ELEQUIST PO; +ELIQUIS2.5 MG PO
[2018-04-09 10:37] LABS: PROTHROMBIN TIME 10.5 SECONDS (9.0-12.5)
== END | disposition home or self-care (01) ==
LOC: LAB 09:32
PROVIDERS: ATTEND Internal Medicine
DX: I48.91 Unspecified atrial fibrillation (principal)

== ENCOUNTER 2018-04-19 09:43 | Outpatient (REF) | payer MEDICARE, BC ==
[2018-04-19 11:04] VITALS: BP 127/80
--- NOTE | 2018-04-19 13:46 | NUR ---
Patient is here for Procrit injection Current Procrit dose of 4,000 units on 04/19/18, Previous Procrit dose of unknown strength 2 weeks ago (~04/05/18) while at rehab per pt. Current Hgb 10.4 g/dL on 04/19/18 Previous Hgb 8.2 g/dL on 03/24/18 Previous Iron study on date: 03/21/18 Next Iron Study on: 06/18/18 Next Hgb due on: 05/03/18 Pt will come back for next dose of 4,000 units on 05/03/18 Notes: Spoke with patient about new procrit dose and if she has any side effects of the medication. Patient denied having any side effects but said she has been feeling weak for about 2 years and recently had a GI bleed. No questions or concerns at this time. QOL assessment Side effects: No Dose adjustments: Yes New dose: 4,000 units SQ every 2 weeks.
== END 2018-04-19 11:15 | disposition home or self-care (01) ==
LOC: INF 09:43
PROVIDERS: ATTEND Nurse Practitioner Adult Health
DX: D63.1 Anemia in chronic kidney disease (principal); N18.4 Chronic kidney disease, stage 4 (severe); D50.9 Iron deficiency anemia, unspecified
CPT/HCPCS: J0885

== ENCOUNTER → 2018-04-25 | Outpatient (REF) | payer MEDICARE, BC ==
[2018-04-25 11:04] LABS: URINE BILIRUBIN - DIPSTICK NEGATIVE (NEGATIVE); URINE BLOOD DIPSTICK NEGATIVE (NEGATIVE); URINE COLOR YELLOW; URINE GLUCOSE - DIPSTICK NEGATIVE (NEGATIVE); URINE KETONE NEGATIVE (NEGATIVE); URINE LEUK ESTERASE SMALL (Negative); URINE NITRITE - DIPSTICK POSITIVE (Negative); URINE PH 5.5 (4.5-8.0); URINE PROTEIN - DIPSTICK NEGATIVE (NEG-TRACE); URINE UROBILINOGEN - DIPSTICK 0.2 E.U./dL (0.2)
[2018-04-25 11:07] LABS: URINE CLARITY CLOUDY
[2018-04-25 11:16] LABS: URINE BACTERIA MANY hpf; URINE SQUAMOUS EPITHELIAL CELL FEW EPI/hpf (0-FEW); URINE WBC 20-50 WBC/hpf (0-5)
== END | disposition home or self-care (01) ==
LOC: LABSPEC 10:42
PROVIDERS: ATTEND Internal Medicine
DX: N39.0 Urinary tract infection, site not specified (principal); B96.20 Unspecified Escherichia coli [E. coli] as the cause of diseases classified elsewhere

== ENCOUNTER 2018-08-02 14:54 | Emergency (ER) | payer MEDICARE, BC ==
[~2018-08-02] VITALS: Ht 167.6 cm; Wt 75.0 kg
[2018-08-02 15:38] LABS: HEMOGLOBIN 8.5 g/dl (12.0-16.0); IMMATURE GRANULOCYTES 0.4 % (0.0-5.0); MEAN CELL VOLUME 98.9 fL CALC (80.0-100.0); MEAN CORPUSCULAR HGB 30.4 pG CALC (26.0-32.0); MEAN CORPUSCULAR HGB CONC 30.7 g/L CALC (32.0-36.0); NEUT# 5.72 thou/uL (2.00-7.15); RED BLOOD COUNT 2.8 mill/uL (4.20-5.60); RED CELL DISTRI WIDTH 13.1 % (11.5-15.5)
[2018-08-02 15:40] LABS: HEMATOCRIT 27.7 % (37.0-47.0)
[2018-08-02 15:55] LABS: PROTHROMBIN TIME 10.7 SECONDS (9.0-12.5)
[2018-08-02 16:55] LABS: ALBUMIN 3.5 g/dL (3.2-5.0); BILIRUBIN, TOTAL 0.3 mg/dL (0.0-1.4); CREATININE 1.7 mg/dL (0.5-1.0); POTASSIUM 5.1 mmol/l (3.5-5.1); TOTAL PROTEIN 6.1 g/dL (6.3-8.2)
[2018-08-02 18:11] VITALS: BP 159/68
[2018-08-02 18:21] VITALS: BP 161/69
[2018-08-02 18:26] VITALS: BP 167/71
[2018-08-02 19:19] VITALS: BP 167/71
== END 2018-08-02 19:19 | disposition short-term general hospital (02) ==
LOC: ED 14:54
PROVIDERS: Family Medicine
PROC: 30233N1 Transfusion of Nonautologous Red Blood Cells into Peripheral Vein, Percutaneous Approach (ICD-10-PCS; principal; 2018-08-02)
DX: K92.1 Melena (principal); I25.10 Atherosclerotic heart disease of native coronary artery without angina pectoris; J44.9 Chronic obstructive pulmonary disease, unspecified; E03.9 Hypothyroidism, unspecified; N18.9 Chronic kidney disease, unspecified; I48.91 Unspecified atrial fibrillation; Z95.1 Presence of aortocoronary bypass graft; Z95.5 Presence of coronary angioplasty implant and graft; Z79.01 Long term (current) use of anticoagulants
CPT/HCPCS: P9016

== ENCOUNTER 2018-08-07 23:53 | Emergency (ER) | payer MEDICARE, BC ==
[~2018-08-07] VITALS: Ht 167.6 cm; Wt 72.0 kg
[2018-08-08 00:43] LABS: HEMOGLOBIN 9.4 g/dl (12.0-16.0); IMMATURE GRANULOCYTES 0.3 % (0.0-5.0); MEAN CORPUSCULAR HGB 30.3 pG CALC (26.0-32.0); MEAN CORPUSCULAR HGB CONC 30.3 g/L CALC (32.0-36.0); NEUT# 6.09 thou/uL (2.00-7.15); RED BLOOD COUNT 3.1 mill/uL (4.20-5.60); RED CELL DISTRI WIDTH 13.2 % (11.5-15.5)
[2018-08-08 01:06] LABS: ACT PARTIAL THROMBO TIME 29.4 SECONDS (20.0-32.5); INTERNATIONAL NORMALIZED RATIO 1.1 RATIO (0.7-1.3); PROTHROMBIN TIME 11.6 SECONDS (9.0-12.5)
[2018-08-08 01:30] LABS: ALBUMIN 3.5 g/dL (3.2-5.0); BILIRUBIN, TOTAL 0.2 mg/dL (0.0-1.4); CREATININE 2.2 mg/dL (0.5-1.0); POTASSIUM 4.2 mmol/l (3.5-5.1)
[2018-08-08 03:20] VITALS: BP 143/56
== END 2018-08-08 03:19 | disposition short-term general hospital (02) ==
LOC: ED 23:53
PROVIDERS: Family Medicine
DX: K57.31 Diverticulosis of large intestine without perforation or abscess with bleeding (principal); K64.9 Unspecified hemorrhoids; I25.10 Atherosclerotic heart disease of native coronary artery without angina pectoris; J44.9 Chronic obstructive pulmonary disease, unspecified; E03.9 Hypothyroidism, unspecified; I48.91 Unspecified atrial fibrillation; Z79.01 Long term (current) use of anticoagulants; Z95.1 Presence of aortocoronary bypass graft; Z95.5 Presence of coronary angioplasty implant and graft; Z86.010 Personal history of colon polyps

== ENCOUNTER 2018-09-18 15:42 | Observation (INO) | payer MEDICARE, BC ==
[~2018-09-18] VITALS: Ht 165.1 cm; Wt 77.6 kg
--- NOTE | 2018-09-18 15:52 | NUR ---
PT TO ROOM VIA WC. PT STATES THAT SHE HAS BEEN HAVING SOB AND CP FOR THE LAST HR AND HALF. PT IS AOX4. WEARS HOME 02 NEEDED. PT IS AOX4. DENIES ANY N/V OR WEAKNESS.
[2018-09-18] MEDS ORDERED: PLAVIX75 MG PO (16:08)
[2018-09-18] MEDS ORDERED: OMEPRAZOLE10 MG PO (16:09)
[2018-09-18] MEDS ORDERED: SINEMET 25/1001 TA1 PO (16:17)
[2018-09-18 16:20] LABS: HEMATOCRIT 31.5 % (37.0-47.0); HEMOGLOBIN 10.1 g/dl (12.0-16.0); IMMATURE GRANULOCYTES 0.6 % (0.0-5.0); MEAN CELL VOLUME 99.7 fL CALC (80.0-100.0); MEAN CORPUSCULAR HGB CONC 32.1 g/L CALC (32.0-36.0); NEUT# 5.65 thou/uL (2.00-7.15); RED BLOOD COUNT 3.16 mill/uL (4.20-5.60); RED CELL DISTRI WIDTH 13.6 % (11.5-15.5)
[2018-09-18 16:30] LABS: ALBUMIN 4.3 g/dL (3.2-5.0); BILIRUBIN, TOTAL 0.2 mg/dL (0.0-1.4); CREATININE 1.8 mg/dL (0.5-1.0); POTASSIUM 4.8 mmol/l (3.5-5.1); TOTAL PROTEIN 7.8 g/dL (6.3-8.2)
--- NOTE | 2018-09-18 16:52 | NUR ---
PT WORK OF BREATHING HAS EASED, STATES NO COMPLAINTS AT THIS TIME.
--- NOTE | 2018-09-18 17:52 | NUR ---
PT RESTING ON STRETCHER, NO COMPLAINTS STATED
--- NOTE | 2018-09-18 18:52 | NUR ---
3 STICHES APPLIED BY
--- NOTE | 2018-09-18 19:31 | NUR ---
REPORT CALLED TO JOHN CHEUNG LPN- ACCPETED PT
--- NOTE | 2018-09-18 19:34 | NUR ---
Admission Note Report Given to: sbar printed to floor Transported by: Wheelchair x Stretcher Transported with: x Nurse Transporter x Patent IV O2 Cloth Printing Utility Worker
--- NOTE | 2018-09-18 19:39 | NUR ---
PT ARRIVED TO FLOOR VIA STRETCHER IN STABLE CONDITION. ALERT AND ORIENTED. PT AMBULATED X2 PERSON ASSIST FROM STRETCHER TO BED, WITH MINIMAL SOB. NO RESPIRATORY DISTRESS NOTED. 02 @ 2L/M VIA NC. INVENTORY DOCUMENTED AT THIS TIME, PT PURSE SENT HOME WITH SISTER. IV SITE APPEARS HEALTHY. PT ORIENTED TO ROOM AND CALL LIGHT SYSTEM. DISCUSSED POC. PT VERBALIZED UNDERSTANDING. BSC PROVIDED AT THIS TIME. CALL LIGHT WITHIN REACH. WILL CONTINUE TO MONITOR.
[2018-09-18 20:00] VITALS: BP 179/75
--- NOTE | 2018-09-18 21:50 | NUR ---
DITTO MACHINE OPERATOR SPOKE WITH FROZEN PIE MAKER PHYSICIAN TO CLARIFY IV FLUID ORDERS AND PTS REQUEST FOR PAIN MEDICATION. NEW ORDERS RECEIVED WILL MEDICATE SOON MEDICATION PROFILED BY PHARMACY.
--- NOTE | 2018-09-19 01:10 | NUR ---
PT RESTING IN BED WITH EYES CLOSED. NO RESPIRATORY DISTRESS NOTED. CALL LIGHT WITHIN REACH. WILL CONTINUE TO MONITOR.
[2018-09-19 04:20] VITALS: BP 150/57
[2018-09-19 05:17] LABS: HEMATOCRIT 33.2 % (37.0-47.0); HEMOGLOBIN 10.3 g/dl (12.0-16.0); IMMATURE GRANULOCYTES 0.6 % (0.0-5.0); NEUT# 8.73 thou/uL (2.00-7.15); RED BLOOD COUNT 3.32 mill/uL (4.20-5.60); RED CELL DISTRI WIDTH 13.5 % (11.5-15.5)
--- NOTE | 2018-09-19 05:20 | NUR ---
PT RESTING IN BED WITH EYES CLOSED. NO S/S OF DISTRESS NOTED. O2 REMAINS IN PLACE @ 2L/M VIA NC. CALL LIGHT WITHIN REACH. WILL CONTINUE TO MONITOR.
[2018-09-19 05:35] LABS: CREATININE 1.8 mg/dL (0.5-1.0)
[2018-09-19 05:42] LABS: POTASSIUM 5.3 mmol/l (3.5-5.1)
--- NOTE | 2018-09-19 07:30 | NUR ---
REPORT RECEIVED FROM BRITTON CHEUNG. PT SITTING UPRIGHT IN BED. SOB NOTED W/ MINIMAL ADJUSTMENT IN BED. O2 @ 2L VIA NC. DENIES PAIN. REPORTING OF CONCERNS ENCOURAGED. PLAN OF CARE DISCUSSED. FALL PRECAUTIONS REINFORCED. CALL LIGHT REVIEWED AND IN REACH. PT STATES UNDERSTANDING.
[2018-09-19 07:48] VITALS: BP 154/65
[2018-09-19] MEDS ORDERED: XALATAN0.005 % OU (09:50)
--- NOTE | 2018-09-19 11:37 | NUR ---
DR. AYERS IN TO SEE PT. PLAN OF CARE UPDATED.
--- NOTE | 2018-09-19 16:33 | NUR ---
PT SITTING UPRIGHT IN BED. MULTIPLE VISITORS AT BEDSIDE. PT DENIES COMPLAINTS.
[2018-09-19 17:00] VITALS: BP 163/57
--- NOTE | 2018-09-19 19:00 | NUR ---
RECIVED REPORT FROM DAY NURSE. PT RESTING QUIETLY IN BED WATCHING TV NO S/S OF SOB. NO NEEDS AT THIS TIME. CALL URIAS IN REACH. WILL CONTINUE TO MONITOR.
[2018-09-19 19:40] VITALS: BP 160/66
--- NOTE | 2018-09-19 21:10 | NUR ---
PT C/O SOB BUT APPEARS CALMA ND RESP EVEN AND UNLABORED. PT ALSO C/O 08/14 BILAT LEG PAIN AND BACK PAIN. MEDICATED PER ORDER FOR PAIN AND BREATHING. ASSESMENT COMPLETED A THIS TIME. PT FEELING BETTER BEFORE DIANETICIST LEAVES THE ROOM. NO OTHER NEEDS AT THIS TIME. CALL URIAS IN REACH. WILL CINTINUE TO MONITOR.
--- NOTE | 2018-09-19 22:00 | NUR ---
PT UP TO BSC. NO PAIN AT THIS TIME AND FEELING MUCH BETTER. WILL CONTINUE TO MONITOR.
--- NOTE | 2018-09-19 22:10 | NUR ---
RECIVED REPORT FROM DAY NURSE. PT RESTING IN BED WATCHING TV. NO NEEDS AT THIS TIME. NO RESPITORY DISTRESS. CALL URIAS IN REACH. WILL CONTINUE TO MONITOR.
--- NOTE | 2018-09-20 | NUR ---
PT RESTING IN BED. IV FLUIDS HUNG PER ORDER. PT C/O PAIN. MEDS NOT DUE AT THIS TIME. PT VERBALIZES UNDERSTANDING. CALL URIAS IN REACH. WILL CONTINUE TO MONITOR.
[2018-09-20 00:04] VITALS: BP 150/62
--- NOTE | 2018-09-20 04:00 | NUR ---
PT UP TO BSC WITH 1 ASSIST AT THIS TIME.
[2018-09-20 04:58] VITALS: BP 142/63
[2018-09-20 05:54] LABS: HEMATOCRIT 32.8 % (37.0-47.0); MEAN CELL VOLUME 102.5 fL CALC (80.0-100.0); MEAN CORPUSCULAR HGB 31.3 pG CALC (26.0-32.0); MEAN CORPUSCULAR HGB CONC 30.5 g/L CALC (32.0-36.0); RED BLOOD COUNT 3.2 mill/uL (4.20-5.60)
[2018-09-20 06:15] LABS: CREATININE 1.7 mg/dL (0.5-1.0); MAGNESIUM 2.2 mg/dL (1.6-2.3)
[2018-09-20 06:19] LABS: POTASSIUM 5.3 mmol/l (3.5-5.1)
--- NOTE | 2018-09-20 07:40 | NUR ---
ASSESSMENT IS COMPLTED: IV SITE IS FREE FROM REDNESS OR EDEMA. BREATH SOUNDS ARE CLEAR BILATERALLY. HR IS REG,PULSES ARE STRONG X4, ABD IS SOFT WITH ACTIVE BS. CONTINUE TO OSBERVE AND MONITOR.
[2018-09-20 07:50] VITALS: BP 175/80
--- NOTE | 2018-09-20 12:00 | NUR ---
PT IS VISITING WITH FAMILY NO DISTRESS NOTED. IV SITE IS FREE FROM REDNESS OR EDEMA.
[2018-09-20 14:55] VITALS: BP 171/68
--- NOTE | 2018-09-20 16:00 | NUR ---
PT IS RELAXING IN BED VISITING WITH FAMILY NO DISTRESS NOTED. IV SITE IS FREE FROM REDNESS OR EDEMA.
[2018-09-20 20:20] VITALS: BP 143/60
--- NOTE | 2018-09-20 22:09 | NUR ---
PT MEDICATED ORDERS PROVIDE AND FOR PAIN 7/10 IN RIGHT KNEE. LUNG SOUNDS ARE CLEAR, ABD SOFT NON-TENDER, NO NOTED EDEMA AT THIS TIME, STRONG PEDAL PULSES. PT REPORTS X2 STOOL NORMAL THIS DAY. LOCX3, PT VERY TALKATIVE. CALL LIGHT IS NEXT TO PT.
--- NOTE | 2018-09-21 00:05 | NUR ---
PT MEDICATED W/IV ANTIBIOTIC THERAPY AT THIS TIME. PT WAS AWAKE READING ON PHONE AND TV/LIGHTS ON. NO S/O DISTRESS. PT REPORTS FEELING OKAY AT THIS TIME. ENCOURAGED PT TO CALL IF ANY NEEDS ARISE. CALL LIGHT AT SIDE.
--- NOTE | 2018-09-21 01:16 | NUR ---
ANTIBIOTIC THERAPY COMPLETED AT THIS TIME. PT DENIES ANY OTHER NEEDS. CALL LIGHT AT SIDE AND PT ENCOURAGED TO CALL NEEDS ARISE.
[2018-09-21 05:23] LABS: CREATININE 1.7 mg/dL (0.5-1.0)
--- NOTE | 2018-09-21 05:31 | NUR ---
PT MEDICATED ORDERS PROVIDE. PT WAS AWAKE WHEN I ENTERED THE ROOM, BUT STATES SHE IS GOING TO RETURN TO SLEEP I'M LEAVING. NO S/O DISTRESS AT THIS TIME. CALL LIGHT AT SIDE.
[2018-09-21 05:37] LABS: POTASSIUM 5.2 mmol/l (3.5-5.1)
[2018-09-21 05:39] VITALS: BP 148/64
[2018-09-21 07:30] VITALS: BP 174/59
--- NOTE | 2018-09-21 07:30 | NUR ---
ASSESSMENT IS COMPLTED: IV SITE IS FREE FROM REDNESS OR EDEMA. HR IS REG,PULSES ARE STRONG X4, ABD IS SOFT WITH ACTIVE BS. BREATH SOUNDS ARE CLEAR AND EXPIRATORY WHEEZING. CONITNUE TO OBSERVE AND MONITOR.
[2018-09-21 09:18] VITALS: BP 174/59
[2018-09-21] MEDS ORDERED: MEDDOSEPAK PO (11:23)
[2018-09-21] MEDS ORDERED: DOXYCYCL HYC100 MG PO (11:23)
--- NOTE | 2018-09-21 12:24 | NUR ---
PT IV SITE DISCONTINUED CATHETER INTACT. NO REDNESS OR EDEMA. DISCHARGE INSTRUCTIONS GIVEN AND VERBALIZED UNDERSTANDING . FAMILY IN THE ROOM. CONTINUE TO OBSERVE AND MONITOR.
--- NOTE | 2018-09-21 13:00 | NUR ---
PT TRANSPORTED OFF THE UNIT WITH FAMILY Discharge instructions given. Patient verbalizes understanding of same. Discharged in stable condition via Wheelchair to Home with family. All belongings sent with pt.[facility] WAS FAXED REPORT.
== END 2018-09-21 12:22 ==
LOC: ED 15:42 → ED-I 17:55 → ED 18:39 → MS2 18:40
PROVIDERS: Emergency Medicine; Internal Medicine; ADMIT Internal Medicine; ATTEND Internal Medicine
DX: J44.1 Chronic obstructive pulmonary disease with (acute) exacerbation (principal); I50.33 Acute on chronic diastolic (congestive) heart failure; I25.10 Atherosclerotic heart disease of native coronary artery without angina pectoris; I48.2 Chronic atrial fibrillation; E11.22 Type 2 diabetes mellitus with diabetic chronic kidney disease; N18.3 Chronic kidney disease, stage 3 (moderate); D64.9 Anemia, unspecified; E11.51 Type 2 diabetes mellitus with diabetic peripheral angiopathy without gangrene; E78.5 Hyperlipidemia, unspecified; E87.5 Hyperkalemia; G20 Parkinson's disease; E03.9 Hypothyroidism, unspecified; M19.90 Unspecified osteoarthritis, unspecified site; H35.30 Unspecified macular degeneration; I25.2 Old myocardial infarction; Z95.5 Presence of coronary angioplasty implant and graft; Z95.1 Presence of aortocoronary bypass graft; Z79.01 Long term (current) use of anticoagulants; Z79.4 Long term (current) use of insulin; Z79.02 Long term (current) use of antithrombotics/antiplatelets; Z87.891 Personal history of nicotine dependence; Z86.73 Personal history of transient ischemic attack (TIA), and cerebral infarction without residual deficits
CPT/HCPCS: J3475

== ENCOUNTER 2018-10-18 16:38 | Emergency (ER) | payer MEDICARE, BC ==
[~2018-10-18] VITALS: Ht 165.1 cm; Wt 75.0 kg
[~2018-10-18 16:38] MED LIST changes: +FLUTICASON50 MCG/ACT NAB; +MEDDOSEPAK PO; +OMEPRAZOLE10 MG PO; +OXYGEN NAB; +XALATAN0.005 % OU; -[UNRECOGNIZED DRUG - OTHER]
[2018-10-18] MEDS ORDERED: LEVOTHYROXIN200 MC2 PO (17:37)
[2018-10-18] MEDS ORDERED: SINEMET 25/1001 TA2 PO (17:38)
[2018-10-18] MEDS ORDERED: AMLODIPINE BESYL5 MG PO (17:38)
[2018-10-18] MEDS ORDERED: ESCITALOPRAM OX10 MG PO (17:39)
[2018-10-18] MEDS ORDERED: VITAMIN D50000 UNIT PO (17:40)
[2018-10-18] MEDS ORDERED: ELIQUIS2.5 MG PO (17:40)
[2018-10-18] MEDS ORDERED: ISOSORB MONO60 M1 PO (17:41)
[2018-10-18] MEDS ORDERED: METOPROLOL SUCC50 MG PO (17:41)
[2018-10-18] MEDS ORDERED: PRAVASTATIN SOD80 MG PO (17:42)
[2018-10-18] MEDS ORDERED: AMIODARONE HYD100 MG PO (17:43)
[2018-10-18] MEDS ORDERED: ADVAIR HF1 IN (17:44)
[2018-10-18] MEDS ORDERED: EZETIMIBE10 MG PO (17:44)
[2018-10-18] MEDS ORDERED: LORTAB 1010 MG PO (18:06)
[2018-10-18 18:10] VITALS: BP 141/74
== END 2018-10-18 18:10 | disposition home or self-care (01) ==
LOC: ED 16:38
PROC: 2W3DX1Z Immobilization of Left Lower Arm using Splint (ICD-10-PCS; principal; 2018-10-18)
PROC: 0HQLXZZ Repair Left Lower Leg Skin, External Approach (ICD-10-PCS; 2018-10-18)
DX: S52.522A Torus fracture of lower end of left radius, initial encounter for closed fracture (principal); S81.012A Laceration without foreign body, left knee, initial encounter; S70.12XA Contusion of left thigh, initial encounter; S80.12XA Contusion of left lower leg, initial encounter; I25.10 Atherosclerotic heart disease of native coronary artery without angina pectoris; J44.9 Chronic obstructive pulmonary disease, unspecified; I48.91 Unspecified atrial fibrillation; E03.9 Hypothyroidism, unspecified; N18.9 Chronic kidney disease, unspecified; W01.198A Fall on same level from slipping, tripping and stumbling with subsequent striking against other object, initial encounter; Y93.E9 Activity, other interior property and clothing maintenance; Y92.003 Bedroom of unspecified non-institutional (private) residence as the place of occurrence of the external cause; Z79.4 Long term (current) use of insulin; Z99.81 Dependence on supplemental oxygen

== ENCOUNTER 2018-10-23 08:28 | Emergency (ER) | payer MEDICARE, BC ==
[~2018-10-23] VITALS: Ht 165.1 cm; Wt 80.0 kg
[~2018-10-23 08:28] MED LIST changes: +ADVAIR HF1 IN; +AMIODARONE HYD100 MG PO; +AMLODIPINE BESYL5 MG PO; +ISOSORB MONO60 M1 PO; +LEVOTHYROXIN200 MC2 PO; +LORTAB 1010 MG PO; +METOPROLOL SUCC50 MG PO; +PRAVASTATIN SOD80 MG PO; +SINEMET 25/1001 TA2 PO
[2018-10-23 10:07] LABS: HEMATOCRIT 31.6 % (37.0-47.0); HEMOGLOBIN 9.8 g/dl (12.0-16.0); IMMATURE GRANULOCYTES 0.4 % (0.0-5.0); MEAN CELL VOLUME 101.6 fL CALC (80.0-100.0); MEAN CORPUSCULAR HGB 31.5 pG CALC (26.0-32.0); NEUT# 9.93 thou/uL (2.00-7.15); RED BLOOD COUNT 3.11 mill/uL (4.20-5.60); RED CELL DISTRI WIDTH 13.9 % (11.5-15.5)
[2018-10-23 10:31] LABS: ACT PARTIAL THROMBO TIME 23.2 SECONDS (20.0-32.5); INTERNATIONAL NORMALIZED RATIO 0.9 RATIO (0.7-1.3); PROTHROMBIN TIME 9.3 SECONDS (9.0-12.5)
[2018-10-23 10:33] LABS: ALBUMIN 3.9 g/dL (3.2-5.0); CREATININE 1.7 mg/dL (0.5-1.0); POTASSIUM 4.7 mmol/l (3.5-5.1); TOTAL PROTEIN 7.3 g/dL (6.3-8.2)
[2018-10-23 10:35] LABS: BILIRUBIN, TOTAL 0.3 mg/dL (0.0-1.4)
[2018-10-23 12:23] LABS: URINE BILIRUBIN - DIPSTICK NEGATIVE (NEGATIVE); URINE BLOOD DIPSTICK TRACE-INTACT (NEGATIVE); URINE COLOR YELLOW; URINE GLUCOSE - DIPSTICK NEGATIVE (NEGATIVE); URINE KETONE NEGATIVE (NEGATIVE); URINE LEUK ESTERASE NEGATIVE (NEGATIVE); URINE NITRITE - DIPSTICK NEGATIVE (Negative); URINE PH 5.5 (4.5-8.0); URINE PROTEIN - DIPSTICK TRACE mg/dL (NEG-TRACE); URINE UROBILINOGEN - DIPSTICK 0.2 E.U./dL (0.2)
[2018-10-23 12:26] LABS: BARBITURATES NEGATIVE (NEGATIVE); COCAINE NEGATIVE (NEGATIVE); METHADONE NEGATIVE (NEGATIVE); OXCYCODONE NEGATIVE (NEGATIVE); TETRAHYDROCANNABIONOL NEGATIVE (NEGATIVE); TRICYLIC ANTIDEPRESSANTS NEGATIVE (NEGATIVE)
[2018-10-23 14:00] VITALS: BP 181/69
== END 2018-10-23 14:05 | disposition home or self-care (01) ==
LOC: ED 08:28
PROC: 0HQ3XZZ Repair Left Ear Skin, External Approach (ICD-10-PCS; principal; 2018-10-23)
DX: S01.312A Laceration without foreign body of left ear, initial encounter (principal); S41.112A Laceration without foreign body of left upper arm, initial encounter; S81.812A Laceration without foreign body, left lower leg, initial encounter; S81.811A Laceration without foreign body, right lower leg, initial encounter; S61.217A Laceration without foreign body of left little finger without damage to nail, initial encounter; S00.93XA Contusion of unspecified part of head, initial encounter; S16.1XXA Strain of muscle, fascia and tendon at neck level, initial encounter; T14.8XXA Other injury of unspecified body region, initial encounter; S52.522D Torus fracture of lower end of left radius, subsequent encounter for fracture with routine healing; N18.9 Chronic kidney disease, unspecified; I25.10 Atherosclerotic heart disease of native coronary artery without angina pectoris; J44.9 Chronic obstructive pulmonary disease, unspecified; E03.9 Hypothyroidism, unspecified; I48.91 Unspecified atrial fibrillation; W06.XXXA Fall from bed, initial encounter; Y92.003 Bedroom of unspecified non-institutional (private) residence as the place of occurrence of the external cause; W19.XXXD Unspecified fall, subsequent encounter; Z95.5 Presence of coronary angioplasty implant and graft; Z95.1 Presence of aortocoronary bypass graft; Z99.81 Dependence on supplemental oxygen

== ENCOUNTER 2019-01-27 | Observation (INO) | payer MEDICARE, BC ==
--- NOTE | 2019-01-27 13:07 | NUR ---
PT TO ROOM VIA WC
[2019-01-27 13:52] LABS: HEMATOCRIT 33.7 % (37.0-47.0); HEMOGLOBIN 10.3 g/dl (12.0-16.0); IMMATURE GRANULOCYTES 0.4 % (0.0-5.0); MEAN CELL VOLUME 97.7 fL CALC (80.0-100.0); MEAN CORPUSCULAR HGB 29.9 pG CALC (26.0-32.0); MEAN CORPUSCULAR HGB CONC 30.6 g/L CALC (32.0-36.0); NEUT# 6.23 thou/uL (2.00-7.15); RED BLOOD COUNT 3.45 mill/uL (4.20-5.60); RED CELL DISTRI WIDTH 13.8 % (11.5-15.5)
[2019-01-27 13:58] LABS: ALBUMIN 4.1 g/dL (3.2-5.0); BILIRUBIN, TOTAL 0.3 mg/dL (0.0-1.4); CREATININE 1.5 mg/dL (0.5-1.0); POTASSIUM 4.3 mmol/l (3.5-5.1); TOTAL PROTEIN 7.3 g/dL (6.3-8.2)
--- NOTE | 2019-01-27 14:00 | NUR ---
PATIENT MEDICATED WITH CARDIZEM 10 MG IV. A FIB 99-118 NOTED ON MOMITOR. WILL CONTINUE TO MONITOR.
--- NOTE | 2019-01-27 14:30 | NUR ---
INFORMED OF PATIENT AFIB AT A RATE OF 118. NO NEW ORDERS RECEIVED.
--- NOTE | 2019-01-27 14:45 | NUR ---
PATIENT ASSISTED TO BSC AND BACK ONTO STRETCHER. URINE SAMPLE COLLECTED.
[2019-01-27 15:02] LABS: URINE BILIRUBIN - DIPSTICK NEGATIVE (NEGATIVE); URINE BLOOD DIPSTICK NEGATIVE (NEGATIVE); URINE COLOR YELLOW; URINE GLUCOSE - DIPSTICK NEGATIVE (NEGATIVE); URINE KETONE NEGATIVE (NEGATIVE); URINE LEUK ESTERASE TRACE (NEGATIVE); URINE NITRITE - DIPSTICK NEGATIVE (Negative); URINE PH 5.5 (4.5-8.0); URINE PROTEIN - DIPSTICK NEGATIVE (NEG-TRACE); URINE UROBILINOGEN - DIPSTICK 0.2 E.U./dL (0.2)
--- NOTE | 2019-01-27 15:50 | NUR ---
PO FLUIDS PROVIDED PER PATIENT REQUEST. UPDATED ON WAIT TIME FOR ADMIT. VERBAL UNDERSTANDING. FAMILY AT BEDSIDE.
--- NOTE | 2019-01-27 16:59 | NUR ---
SBAR PRINTED TO FLOOR
[2019-01-27] MEDS ORDERED: PERCOCET 10/31 COMBO PO (17:00)
--- NOTE | 2019-01-27 17:02 | NUR ---
MED REC COMPLETED WITH PATIENT.
[2019-01-27 17:08] LABS: TSH, 3RD GENERATION 1.75 uIU/mL (0.47 - 4.68)
--- NOTE | 2019-01-27 17:08 | NUR ---
CALL PLACED TO TO INFORM OF CHANGES TO PATIENT HOME MEDICATION LIST. WILL UPDATED INPATIENT ORDERS.
--- NOTE | 2019-01-27 17:37 | NUR ---
REPORT CALLED TO WOLFGANG SAUCEDO.
--- NOTE | 2019-01-27 17:45 | NUR ---
PATIENT TRANSPORTED TO [facility] VIA WHEELCHAIR WITH TELE IN PLACE. NURSE AWARE OF PATIENT ARRIVAL TO ROOM, INTERMISSION COORDINATOR AT BEDSIDE. CARE RELINQUISHED.
--- NOTE | 2019-01-27 18:00 | NUR ---
PATIENT ARRIVED INTO ROOM 270 FROM ER VIA STRETCHER. ASSISTED INTO BED. ORIENTED TO SURROUNDINGS. EXPLAINED USE OF CALL URIAS AND BED CONTROLS. DINNER TRAY PROVIDED.
[2019-01-27 18:03] VITALS: BP 137/78
--- NOTE | 2019-01-27 18:30 | NUR ---
ADMISSION ASSESSMENT COMPLETED. RESP NON-LABORED. LUNGS CLEAR. NO PERIPHERAL EDEMA, PULSES INTACT. SALINE LOCK IN RAC, SITE BENIGN. TELEMETRY SHOWS AFIB VARIABLE RATE ANYWHERE FROM 115-140 PER ED MONITORING. DISCUSSED WITH Rebecca ROBISON/SHANNAN, PATIENT IS DUE A DOSE OF AMIODARONE 100 MG PO, WILL GIVE DOSE AND CONTINUE TO MONITOR PATIENT. ADVISED AGRICULTURAL SERVICE WORKER OF PLAN. DISUSSED PLAN OF CARE WITH PATIENT.
[2019-01-27 18:40] VITALS: BP 129/66
--- NOTE | 2019-01-27 19:10 | NUR ---
REPORT RECEIVED FROM WOLFGANG ARAYA. PT RESTING IN RECLINER AT BEDSIDE. NO S/S OF DISTRESS AT THIS TIME. SAFETY PRECAUTIONS IN PLACE. WILL CONTINUE TO MONITOR.
--- NOTE | 2019-01-27 19:10 | NUR ---
REPORT RECEIVED FROM WOLFGANG ARAYA. PT RESTING IN BED. SAFETY PRECAUTIONS IN PLACE. WILL CONTINUE TO MONITOR.
[2019-01-27 21:11] VITALS: BP 134/64
--- NOTE | 2019-01-27 21:15 | NUR ---
PT RESTING IN BED. RESPIRATIONS EVEN AND UNLABORED ON O2 @ 2L VIA NC. LUNGS SOUND CLEAR. PEDAL PULSES STRONG. PT REPORTS FEELING ITCHY PT PROVIDED WITH BARRIER CREME AND LOTION. TELE IN PLACE. CALL URIAS WITHIN REACH. WILL CONTINUE TO MONITOR.
[2019-01-28] VITALS (7 sets, daily range): BP systolic 111–135; BP diastolic 60–85
--- NOTE | 2019-01-28 00:05 | NUR ---
PT RESTING IN BED WITH EYES CLOSED. RESPIRATIONS EVEN AND UNLABORED ON O2 @ 2L VIA NC. TELE IN PLACE. WILL CONTINUE TO MONITOR.
--- NOTE | 2019-01-28 04:45 | NUR ---
PT RESTING IN BED. RESPIRATIONS EVEN AND UNLABORED. TELE IN PLACE. NO S/S OF DISTRESS AT THIS TIME. SAFETY PRECAUTIONS IN PLACE. WILL CONTINUE TO MONITOR.
[2019-01-28 05:08] LABS: HEMATOCRIT 31.9 % (37.0-47.0); HEMOGLOBIN 9.8 g/dl (12.0-16.0); IMMATURE GRANULOCYTES 0.4 % (0.0-5.0); MEAN CELL VOLUME 98.2 fL CALC (80.0-100.0); MEAN CORPUSCULAR HGB 30.2 pG CALC (26.0-32.0); MEAN CORPUSCULAR HGB CONC 30.7 g/L CALC (32.0-36.0); NEUT# 3.4 thou/uL (2.00-7.15); RED BLOOD COUNT 3.25 mill/uL (4.20-5.60); RED CELL DISTRI WIDTH 13.9 % (11.5-15.5)
[2019-01-28 05:29] LABS: CREATININE 1.9 mg/dL (0.5-1.0); MAGNESIUM 1.9 mg/dL (1.6-2.3); POTASSIUM 4.1 mmol/l (3.5-5.1)
--- NOTE | 2019-01-28 07:45 | NUR ---
AWAKE ON ROUNDS. UP TO BSC TO VOID AND THEN TO RECLINER CHAIR. RESP NON-LABORED. LUNGS CLEAR. NO PERIPHERAL EDEMA, PULSES INTACT. SALINE LOCK IN PLACE IN RAC, SITE BENIGN. DISCUSSED PLAN OF CARE. NEEDS IDENTIFIED AND ADDRESSED. CALL URIAS IN REACH.
--- NOTE | 2019-01-28 10:54 | NUR ---
IV FLUIDS STARTED ORDERED. SALINE LOCK FLUSHED AND PATENT.
--- NOTE | 2019-01-28 11:25 | NUR ---
IV SITE LEAKING AND SWOLLEN. DC'D SITE. PATIENT IS A DIFFICULT STICK. CALL TO IV THERAP YFOR ASSISTANCE WITH NEW SITE.
--- NOTE | 2019-01-28 13:30 | NUR ---
IV RESTARTED IN LH, NS RESUMED AT 100 ML/HR.
--- NOTE | 2019-01-28 16:15 | NUR ---
CONTIUES UP IN RECLINER WATCHING TV. NO C/O VOICED.
--- NOTE | 2019-01-28 18:30 | NUR ---
IV SITE INFILTRATED. DC'D WTIH CATHETER INTACT. NEW SITE STARTED IN LW. PATIENT MEDICATED FOR PAIN WITH ULTRAM ORDERED.
--- NOTE | 2019-01-28 20:35 | NUR ---
PT ASSISTED FROM BSC TO BED x1 ASSIST, RESPIRATIONS EVEN AND UNLABORED ON O2 @ 2L VIA NC. LUNGS SOUND CLEAR. PEDAL PULSES STRONG. PT REPORTS HAVING MILD PAIN RIGHT KNEE, LEFT WRIST, AND LOWER BACK, PT REPOSITIONED IN BED. TELE IN PLACE. CALL URIAS WITHIN REACH. WILL CONTINUE TO MONITOR.
--- NOTE | 2019-01-29 00:10 | NUR ---
PT RESTING IN BED WITH EYES CLOSED, NO S/S OF DISTRESS AT THIS TIME. SAFETY PRECAUTIONS IN PLACE. WILL CONTINUE TO MONITOR.
[2019-01-29 03:45] VITALS: BP 130/73
--- NOTE | 2019-01-29 04:35 | NUR ---
PT RESTING IN BED. TELE IN PLACE. RESPIRATIONS EVEN AND UNLABORED ON O2 @ 2L VIA NC. SAFETY PRECAUTIONS IN PLACE. WILL CONTINUE TO MONTIOR.
[2019-01-29 07:55] VITALS: BP 133/80
--- NOTE | 2019-01-29 07:55 | NUR ---
AWAKE ON ROUNDS. SITTING AT SIDE OF BED EATING BREAKFAST. RESP NON-LABORED AT REST. LUNGS CLEAR. USES O2 AT 2 L NC. IV IN LW, SITE BENIGN. NS INFUSING AT 100 ML/HR. DISCUSSED PLAN OF CARE. NO NEEDS IDENTIFIED AT THIS TIME. CALL URIAS IN REACH.
[2019-01-29 10:56] VITALS: BP 126/75
--- NOTE | 2019-01-29 12:00 | NUR ---
SITTING AT SIDE OF BED. EATING BREAKFAST. SISTER AT BEDSIDE. NO COMPLAINTS VOICED. IV INFUSING WITHOUT ICIDENT.
[2019-01-29 15:45] VITALS: BP 109/59
[2019-01-29] MEDS ORDERED: TOPROL XL50 MG PO (16:36)
--- NOTE | 2019-01-29 17:34 | NUR ---
Discharge instructions given. Patient verbalizes understanding of same. Discharged in stable condition via Wheelchair to Home with family. All belongings sent with pt.
== END 2019-01-29 17:34 | disposition home or self-care (01) ==
PROVIDERS: Family Medicine; ADMIT Internal Medicine
DX: I48.20 Chronic atrial fibrillation, unspecified (principal); E11.22 Type 2 diabetes mellitus with diabetic chronic kidney disease; N18.3 Chronic kidney disease, stage 3 (moderate); I50.9 Heart failure, unspecified; I25.10 Atherosclerotic heart disease of native coronary artery without angina pectoris; J44.9 Chronic obstructive pulmonary disease, unspecified; E11.51 Type 2 diabetes mellitus with diabetic peripheral angiopathy without gangrene; D63.1 Anemia in chronic kidney disease; E78.5 Hyperlipidemia, unspecified; E03.9 Hypothyroidism, unspecified; M19.90 Unspecified osteoarthritis, unspecified site; G20 Parkinson's disease; H35.30 Unspecified macular degeneration; I25.2 Old myocardial infarction; Z95.1 Presence of aortocoronary bypass graft; Z23 Encounter for immunization; Z95.5 Presence of coronary angioplasty implant and graft; Z79.4 Long term (current) use of insulin; Z86.73 Personal history of transient ischemic attack (TIA), and cerebral infarction without residual deficits; Z87.891 Personal history of nicotine dependence; Z79.02 Long term (current) use of antithrombotics/antiplatelets; N18.4 Chronic kidney disease, stage 4 (severe); D50.9 Iron deficiency anemia, unspecified
CPT/HCPCS: G0378; Q5106 EC

== ENCOUNTER 2019-03-17 | Emergency (ER) | payer MEDICARE, BC ==
[~2019-03-17] MED LIST changes: +PERCOCET 10/31 COMBO PO; +TOPROL XL50 MG PO
[2019-03-17 15:52] LABS: HEMATOCRIT 30.5 % (37.0-47.0); HEMOGLOBIN 9.3 g/dl (12.0-16.0); IMMATURE GRANULOCYTES 0.5 % (0.0-5.0); MEAN CELL VOLUME 95.9 fL CALC (80.0-100.0); MEAN CORPUSCULAR HGB 29.2 pG CALC (26.0-32.0); MEAN CORPUSCULAR HGB CONC 30.5 g/L CALC (32.0-36.0); NEUT# 11.31 thou/uL (2.00-7.15); RED BLOOD COUNT 3.18 mill/uL (4.20-5.60); RED CELL DISTRI WIDTH 13.7 % (11.5-15.5)
[2019-03-17 16:08] LABS: ALBUMIN 4.1 g/dL (3.2-5.0); CREATININE 1.5 mg/dL (0.5-1.0); POTASSIUM 4.6 mmol/l (3.5-5.1); TOTAL PROTEIN 7.1 g/dL (6.3-8.2)
[2019-03-17 16:12] LABS: BILIRUBIN, TOTAL 0.5 mg/dL (0.0-1.4)
[2019-03-17 18:08] LABS: URINE BILIRUBIN - DIPSTICK NEGATIVE (NEGATIVE); URINE BLOOD DIPSTICK TRACE-INTACT (NEGATIVE); URINE COLOR YELLOW; URINE GLUCOSE - DIPSTICK NEGATIVE (NEGATIVE); URINE KETONE NEGATIVE (NEGATIVE); URINE PROTEIN - DIPSTICK 30 mg/dL (NEG-TRACE); URINE SPECIFIC GRAVITY 1.025; URINE UROBILINOGEN - DIPSTICK 0.2 E.U./dL (0.2)
[2019-03-17 18:09] LABS: URINE LEUK ESTERASE SMALL (NEGATIVE); URINE NITRITE - DIPSTICK POSITIVE (Negative)
[2019-03-17 18:15] LABS: URINE BACTERIA MODERATE hpf; URINE SQUAMOUS EPITHELIAL CELL FEW EPI/hpf (0-FEW)
[2019-03-17] MEDS ORDERED: MACRODANTIN100 MG PO (19:22)
[2019-03-17] MEDS ORDERED: PROMETHAZINE12.5 MG PO (19:22)
== END 2019-03-17 20:12 | disposition home or self-care (01) ==
DX: K80.20 Calculus of gallbladder without cholecystitis without obstruction (principal); N39.0 Urinary tract infection, site not specified; R11.2 Nausea with vomiting, unspecified; R19.7 Diarrhea, unspecified; I25.10 Atherosclerotic heart disease of native coronary artery without angina pectoris; N18.9 Chronic kidney disease, unspecified; J44.9 Chronic obstructive pulmonary disease, unspecified; E03.9 Hypothyroidism, unspecified; I48.91 Unspecified atrial fibrillation; B96.20 Unspecified Escherichia coli [E. coli] as the cause of diseases classified elsewhere; Z95.1 Presence of aortocoronary bypass graft; Z99.81 Dependence on supplemental oxygen

== ENCOUNTER 2019-03-20 | Inpatient (IN) | payer MEDICARE, BC ==
[2019-03-18 17:59] LABS: HEMATOCRIT 30.6 % (37.0-47.0); HEMOGLOBIN 9.2 g/dl (12.0-16.0); IMMATURE GRANULOCYTES 0.5 % (0.0-5.0); MEAN CELL VOLUME 97.8 fL CALC (80.0-100.0); MEAN CORPUSCULAR HGB 29.4 pG CALC (26.0-32.0); MEAN CORPUSCULAR HGB CONC 30.1 g/L CALC (32.0-36.0); NEUT# 13.76 thou/uL (2.00-7.15); RED BLOOD COUNT 3.13 mill/uL (4.20-5.60); RED CELL DISTRI WIDTH 13.9 % (11.5-15.5)
[2019-03-18 18:24] LABS: ALBUMIN 4.1 g/dL (3.2-5.0); BILIRUBIN, TOTAL 0.4 mg/dL (0.0-1.4); CREATININE 1.5 mg/dL (0.5-1.0); POTASSIUM 4.2 mmol/l (3.5-5.1); TOTAL PROTEIN 7.7 g/dL (6.3-8.2)
[2019-03-18 18:28] LABS: ACT PARTIAL THROMBO TIME 31.9 SECONDS (20.0-32.5); INTERNATIONAL NORMALIZED RATIO 1.1 RATIO (0.7-1.3)
[2019-03-18 20:30] VITALS: BP 145/88
[2019-03-18 20:45] VITALS: BP 180/90
[2019-03-18 21:00] VITALS: BP 155/95
[2019-03-18 21:15] VITALS: BP 163/78
[2019-03-18 21:30] VITALS: BP 161/63
[2019-03-18 22:00] VITALS: BP 145/92
[2019-03-19] VITALS (24 sets, daily range): BP systolic 72–151; BP diastolic 47–75
[2019-03-19 00:49] LABS: URINE BLOOD DIPSTICK SMALL (NEGATIVE); URINE COLOR YELLOW; URINE GLUCOSE - DIPSTICK NEGATIVE (NEGATIVE); URINE KETONE TRACE mg/dL (NEGATIVE); URINE LEUK ESTERASE SMALL (NEGATIVE); URINE NITRITE - DIPSTICK POSITIVE (Negative); URINE PH 5.5 (4.5-8.0); URINE PROTEIN - DIPSTICK 30 mg/dL (NEG-TRACE); URINE UROBILINOGEN - DIPSTICK 0.2 E.U./dL (0.2)
[2019-03-19 00:54] LABS: URINE BILIRUBIN - DIPSTICK NEGATIVE (NEGATIVE)
[2019-03-19 00:55] LABS: URINE WBC 20-50 WBC/hpf (0-5)
[2019-03-19 00:56] LABS: URINE BACTERIA MANY hpf; URINE EPITHELIAL CELLS MODERATE EPI/hpf (0-FEW)
[2019-03-19 06:43] LABS: HEMATOCRIT 25.9 % (37.0-47.0); HEMOGLOBIN 7.7 g/dl (12.0-16.0); IMMATURE GRANULOCYTES 0.5 % (0.0-5.0); MEAN CELL VOLUME 98.5 fL CALC (80.0-100.0); MEAN CORPUSCULAR HGB 29.3 pG CALC (26.0-32.0); MEAN CORPUSCULAR HGB CONC 29.7 g/L CALC (32.0-36.0); NEUT# 9.31 thou/uL (2.00-7.15); RED BLOOD COUNT 2.63 mill/uL (4.20-5.60); RED CELL DISTRI WIDTH 13.9 % (11.5-15.5)
[2019-03-19 07:14] LABS: CREATININE 1.4 mg/dL (0.5-1.0); MAGNESIUM 1.9 mg/dL (1.6-2.3); POTASSIUM 4.4 mmol/l (3.5-5.1)
[2019-03-20] VITALS (13 sets, daily range): BP systolic 99–144; BP diastolic 52–84
[~2019-03-20] MED LIST changes: +MACRODANTIN100 MG PO; +PROMETHAZINE12.5 MG PO
[2019-03-20 06:17] LABS: CREATININE 1.9 mg/dL (0.5-1.0); POTASSIUM 4.1 mmol/l (3.5-5.1)
[2019-03-20 06:25] LABS: IMMATURE GRANULOCYTES 0.6 % (0.0-5.0); MEAN CELL VOLUME 98.3 fL CALC (80.0-100.0); MEAN CORPUSCULAR HGB 28.9 pG CALC (26.0-32.0); MEAN CORPUSCULAR HGB CONC 29.4 g/L CALC (32.0-36.0); NEUT# 10.79 thou/uL (2.00-7.15); RED BLOOD COUNT 2.42 mill/uL (4.20-5.60); RED CELL DISTRI WIDTH 14.2 % (11.5-15.5)
[2019-03-20 06:49] LABS: HEMATOCRIT 23.8 % (37.0-47.0)
[2019-03-20 19:28] LABS: HEMATOCRIT 29.8 % (37.0-47.0)
[2019-03-21] VITALS (11 sets, daily range): BP systolic 102–136; BP diastolic 54–71
[2019-03-21 05:19] LABS: HEMATOCRIT 27.2 % (37.0-47.0); HEMOGLOBIN 8.2 g/dl (12.0-16.0); MEAN CELL VOLUME 97.8 fL CALC (80.0-100.0); MEAN CORPUSCULAR HGB 29.5 pG CALC (26.0-32.0); MEAN CORPUSCULAR HGB CONC 30.1 g/L CALC (32.0-36.0); RED BLOOD COUNT 2.78 mill/uL (4.20-5.60); RED CELL DISTRI WIDTH 14.4 % (11.5-15.5)
[2019-03-21 05:22] LABS: CREATININE 1.7 mg/dL (0.5-1.0); POTASSIUM 4.4 mmol/l (3.5-5.1)
[2019-03-22] VITALS (13 sets, daily range): BP systolic 111–140; BP diastolic 65–77
[2019-03-23 03:38] VITALS: BP 127/70; BP 137/81
[2019-03-23 10:36] LABS: HEMATOCRIT 28.4 % (37.0-47.0); HEMOGLOBIN 8.6 g/dl (12.0-16.0); IMMATURE GRANULOCYTES 0.7 % (0.0-5.0); MEAN CELL VOLUME 97.6 fL CALC (80.0-100.0); MEAN CORPUSCULAR HGB 29.6 pG CALC (26.0-32.0); MEAN CORPUSCULAR HGB CONC 30.3 g/L CALC (32.0-36.0); NEUT# 10.24 thou/uL (2.00-7.15); RED BLOOD COUNT 2.91 mill/uL (4.20-5.60); RED CELL DISTRI WIDTH 14.6 % (11.5-15.5)
[2019-03-23 10:46] VITALS: BP 125/77
[2019-03-23 11:03] LABS: ALBUMIN 3.3 g/dL (3.2-5.0); CREATININE 1.6 mg/dL (0.5-1.0); POTASSIUM 4.8 mmol/l (3.5-5.1); TOTAL PROTEIN 6.3 g/dL (6.3-8.2)
[2019-03-23 11:05] LABS: BILIRUBIN, TOTAL 0.6 mg/dL (0.0-1.4)
[2019-03-23 15:40] VITALS: BP 140/83
[2019-03-23 16:48] VITALS: BP 136/88
[2019-03-23 18:33] VITALS: BP 132/90
[2019-03-23 23:50] VITALS: BP 134/82
[2019-03-24] VITALS (14 sets, daily range): BP systolic 121–161; BP diastolic 73–97
[2019-03-24 11:09] LABS: HEMATOCRIT 28.8 % (37.0-47.0); HEMOGLOBIN 8.6 g/dl (12.0-16.0); MEAN CELL VOLUME 97.6 fL CALC (80.0-100.0); MEAN CORPUSCULAR HGB 29.2 pG CALC (26.0-32.0); MEAN CORPUSCULAR HGB CONC 29.9 g/L CALC (32.0-36.0); RED BLOOD COUNT 2.95 mill/uL (4.20-5.60); RED CELL DISTRI WIDTH 14.7 % (11.5-15.5)
[2019-03-24 11:12] LABS: CREATININE 1.6 mg/dL (0.5-1.0); MAGNESIUM 2.1 mg/dL (1.6-2.3)
[2019-03-25] VITALS (13 sets, daily range): BP systolic 116–169; BP diastolic 68–95
[2019-03-25 06:44] LABS: HEMATOCRIT 28.6 % (37.0-47.0); HEMOGLOBIN 8.7 g/dl (12.0-16.0); IMMATURE GRANULOCYTES 1.4 % (0.0-5.0); MEAN CELL VOLUME 96.6 fL CALC (80.0-100.0); MEAN CORPUSCULAR HGB 29.4 pG CALC (26.0-32.0); MEAN CORPUSCULAR HGB CONC 30.4 g/L CALC (32.0-36.0); NEUT# 12.3 thou/uL (2.00-7.15); RED BLOOD COUNT 2.96 mill/uL (4.20-5.60); RED CELL DISTRI WIDTH 14.6 % (11.5-15.5)
[2019-03-25 06:55] LABS: CREATININE 1.6 mg/dL (0.5-1.0); POTASSIUM 4.9 mmol/l (3.5-5.1)
[2019-03-26] VITALS (8 sets, daily range): BP systolic 113–136; BP diastolic 57–86
== END 2019-03-26 16:31 | disposition short-term general hospital (02) | DRG 444 ==
PROVIDERS: Internal Medicine; Nurse Practitioner Family; ADMIT Internal Medicine
PROC: 30233N1 Transfusion of Nonautologous Red Blood Cells into Peripheral Vein, Percutaneous Approach (ICD-10-PCS; principal; 2019-03-20)
DX: K80.10 Calculus of gallbladder with chronic cholecystitis without obstruction (principal); J96.20 Acute and chronic respiratory failure, unspecified whether with hypoxia or hypercapnia; N17.9 Acute kidney failure, unspecified; I50.32 Chronic diastolic (congestive) heart failure; N39.0 Urinary tract infection, site not specified; I48.91 Unspecified atrial fibrillation; E11.22 Type 2 diabetes mellitus with diabetic chronic kidney disease; N18.3 Chronic kidney disease, stage 3 (moderate); D63.1 Anemia in chronic kidney disease; J44.9 Chronic obstructive pulmonary disease, unspecified; E11.51 Type 2 diabetes mellitus with diabetic peripheral angiopathy without gangrene; I25.10 Atherosclerotic heart disease of native coronary artery without angina pectoris; E03.9 Hypothyroidism, unspecified; G20 Parkinson's disease; K59.00 Constipation, unspecified; I25.2 Old myocardial infarction; Z79.01 Long term (current) use of anticoagulants; Z86.73 Personal history of transient ischemic attack (TIA), and cerebral infarction without residual deficits; Z95.1 Presence of aortocoronary bypass graft; Z99.81 Dependence on supplemental oxygen; Z79.4 Long term (current) use of insulin; Z95.5 Presence of coronary angioplasty implant and graft; Z87.891 Personal history of nicotine dependence; R11.0 Nausea; R11.2 Nausea with vomiting, unspecified; R19.7 Diarrhea, unspecified; N18.9 Chronic kidney disease, unspecified; B96.20 Unspecified Escherichia coli [E. coli] as the cause of diseases classified elsewhere
CPT/HCPCS: A9537; A9540; A9567; J1160; J1956; J2805; P9016

== ENCOUNTER 2019-03-31 12:05 | Inpatient (IN) | payer MEDICARE, BC ==
[~2019-03-31] VITALS: Ht 165.1 cm; Wt 77.0 kg
--- NOTE | 2019-03-31 12:05 | NUR ---
PATIENT TO ROOM VIA EMS AND PHYSICIASN AT BEDSIDE FOR EVAL
--- NOTE | 2019-03-31 13:30 | NUR ---
PT ARRIVES WITH SOB. PT STATES HAVING SOB FOR A FEW WEEKS AND IT HAS EXACERBATED TODAY. WHEEZING IS DETECTED IN LUNGS BILATERALLY. PT CANNOT COMPLETE SENTACES AND IS WEAK. O2 IS ADMINISTERED. AND NEB TREATMENT GIVIN. O2 SATS AT 100% ON O2. AOX4
[2019-03-31 13:41] LABS: HEMATOCRIT 27.2 % (37.0-47.0); HEMOGLOBIN 8.2 g/dl (12.0-16.0); IMMATURE GRANULOCYTES 0.9 % (0.0-5.0); MEAN CELL VOLUME 97.1 fL CALC (80.0-100.0); MEAN CORPUSCULAR HGB 29.3 pG CALC (26.0-32.0); MEAN CORPUSCULAR HGB CONC 30.1 g/L CALC (32.0-36.0); NEUT# 14.03 thou/uL (2.00-7.15); RED BLOOD COUNT 2.8 mill/uL (4.20-5.60); RED CELL DISTRI WIDTH 14.6 % (11.5-15.5)
[2019-03-31 13:41] LABS: URINE BILIRUBIN - DIPSTICK NEGATIVE (NEGATIVE); URINE BLOOD DIPSTICK NEGATIVE (NEGATIVE); URINE COLOR YELLOW; URINE GLUCOSE - DIPSTICK NEGATIVE (NEGATIVE); URINE KETONE NEGATIVE (NEGATIVE); URINE LEUK ESTERASE NEGATIVE (NEGATIVE); URINE NITRITE - DIPSTICK NEGATIVE (Negative); URINE PH 5.5 (4.5-8.0); URINE SPECIFIC GRAVITY 1.025; URINE UROBILINOGEN - DIPSTICK 0.2 E.U./dL (0.2)
[2019-03-31 13:43] LABS: URINE PROTEIN - DIPSTICK Trace mg/dL (NEG-TRACE)
--- NOTE | 2019-03-31 14:00 | NUR ---
PT RESTING ON STRETCHER WITH HOB CONTINUES TO BE ELEVATED. PT ADVISED ON PENDING RESULTS
--- NOTE | 2019-03-31 14:00 | NUR ---
PT ADVISED OF CONTINUED WAIT TIME AND PLAN OF CARE. ANTIBIOTICS INFUSING, IV PATENT AND PT DENIES ANY PAIN
[2019-03-31 14:49] LABS: ALBUMIN 3.8 g/dL (3.2-5.0); ALKALINE PHOSPHATASE 193 u/l (38-126); BILIRUBIN, TOTAL 0.6 mg/dL (0.0-1.4); BUN 16 mg/dL (8-23); BUN/CREATININE RATIO 12 (12-20 (CALC)); CHLORIDE 104 mmol/l (95-108); CREATININE 1.3 mg/dL (0.5-1.0); GFR 39 ML/MIN (>=60 (CALC)); GFR FOR AFR.AMER. 47 ML/MIN (>=60 (CALC)); LIPASE 121 u/l (23-300); SGOT/AST 15 u/l (9-36); SODIUM 141 mmol/l (137-146); TOTAL PROTEIN 7.4 g/dL (6.3-8.2)
[2019-03-31 14:53] LABS: ANION GAP 11 (6-22 (CALC)); CARBON DIOXIDE 30 mmol/l (22-30); POTASSIUM 3.7 mmol/l (3.5-5.1)
--- NOTE | 2019-03-31 15:00 | NUR ---
PT RESTING WITH EYES CLOSED AND ANTIBIOTICS INFUSING
--- NOTE | 2019-03-31 16:30 | NUR ---
PT STATED HAVING A WET BRIEF, LINENS CHANGED AND BRIEF CHANGED. PURWICK INSTALLED.
--- NOTE | 2019-03-31 17:46 | NUR ---
GAVE REPORT TO NOAM
--- NOTE | 2019-03-31 17:55 | NUR ---
PT TRANSPORTED TO ICU STABLE AND IN NO DISTRESS. CARE ASSUMED TO MEET Admission Note Report Given to: Transported by: Wheelchair X Stretcher Transported with: Nurse X Transporter X Patent IV X O2 Lockstitch Coat Joiner Location: X ICU MS2
--- NOTE | 2019-03-31 18:10 | NUR ---
PT TO ICU BED 4 VIA STRETCHER. ACCOMPANIED BY ER NURSE. PT MAX ASSIST TO BED X2. ALVAREZ PLACED USING STERILE TECHNIQUE. IMMEADIATE RETURN OF URINE NOTED. PT TOLERATED WELL. ALVAREZ PLACED FOR ACCURATE I&O MEASUREMENT. ADMISSION ASSESSMENT COMPLETED AT THIS TIME. ORIENTED PT TO ROOM AND UNIT. CALL LIGHT IN REACH. WILL CONTINUE TO MONITOR
[2019-03-31 18:15] VITALS: BP 131/74
[2019-03-31 18:30] VITALS: BP 143/88
[2019-03-31 18:45] VITALS: BP 148/91
--- NOTE | 2019-03-31 18:55 | NUR ---
RECEIVED REPORT FROM JERRY GOSS.
--- NOTE | 2019-03-31 19:10 | NUR ---
PT AWAKE AND ALERT, EATING APPLESAUCE. RYTHM AFIB RESP EVEN AND UNLABORED. CALL URIAS IN REACH.
[2019-03-31 20:00] VITALS: BP 139/78
--- NOTE | 2019-03-31 20:00 | NUR ---
PT AWAKE AND ALERT, ASKED FOR BLANKET, PROVIDED. NO RESP DISTRESS NOTED. CALL URIAS IN REACH.
[2019-03-31 22:00] VITALS: BP 144/83
--- NOTE | 2019-03-31 22:00 | NUR ---
PT WITH EYES CLOSED, RESPONDED TO VERBAL STIMULI. RESP KEVIN AND UNLABORED. CALL URIAS IN REACH.
--- NOTE | 2019-03-31 22:51 | NUR ---
INCREASED IN CONFUSION NOTED. PT ORIENTED TO SELF ONLY. REVIEWED CALL URIAS SAFETY.
--- NOTE | 2019-03-31 23:18 | NUR ---
BED ALARM ON FOR PT SAFETY. PROVIDED REORIENTATION TO ROOM.
[2019-04-01] VITALS (14 sets, daily range): BP systolic 99–157; BP diastolic 57–98
--- NOTE | 2019-04-01 | NUR ---
PT REMAINS CONFUSED. PROVIDED REORIENTATION. BED ALARM ON, CALL URIAS IN REACH.
--- NOTE | 2019-04-01 02:09 | NUR ---
PT REMAINS CONFUSED. PROVIDED ORIENTATION TO ROOM. BED ALARM ON FOR PT SAFETY. CALL URIAS IN REACH.
--- NOTE | 2019-04-01 04:00 | NUR ---
PT AWAKE AND ALERT, CONFUSED. PROVIDED ORIENTATON. CALL URIAS IN REACH.
[2019-04-01 05:20] LABS: HEMATOCRIT 27.6 % (37.0-47.0); HEMOGLOBIN 8.2 g/dl (12.0-16.0); MEAN CELL VOLUME 95.8 fL CALC (80.0-100.0); MEAN CORPUSCULAR HGB 28.5 pG CALC (26.0-32.0); MEAN CORPUSCULAR HGB CONC 29.7 g/L CALC (32.0-36.0); RED BLOOD COUNT 2.88 mill/uL (4.20-5.60); RED CELL DISTRI WIDTH 14.6 % (11.5-15.5)
[2019-04-01 05:47] LABS: CREATININE 1.3 mg/dL (0.5-1.0); MAGNESIUM 1.8 mg/dL (1.6-2.3)
[2019-04-01 05:55] LABS: POTASSIUM 4.6 mmol/l (3.5-5.1)
--- NOTE | 2019-04-01 06:00 | NUR ---
PT AWAKE AND ALERT, CONFUSED. BED ALARM ON. CALL URIAS IN REACH.
--- NOTE | 2019-04-01 06:56 | NUR ---
REPORT TO JERRY GOSS.
--- NOTE | 2019-04-01 07:40 | NUR ---
PT RESTING IN BED WITH EYES CLOSED. PT AROUSES TO VERBAL STIMULI. PT IS ALERT AND ORIENTED TO SELF ONLY. REORIENTATION UNSUCCESSFUL AT THIS TIME. SHIFT ASSESSMENT COMPLETED AT THIS TIME. IV PATENT X1. CALL LIGHT IN REACH. WILL CONTINUE TO MONITOR.
--- NOTE | 2019-04-01 07:50 | NUR ---
PT SET UP FOR AM MEAL
--- NOTE | 2019-04-01 09:15 | NUR ---
DR AYERS AT BEDSIDE AT THIS TIME.
--- NOTE | 2019-04-01 09:25 | NUR ---
S: LEFTY WU is a 83 F who presents with pneumonia. She has a history of anemia, chronic kidney disease, acute and chronic respiratory failure, CHF exacerbation, COPD, coronary artery disease, osteoarthritis, peripheral vascular disease, dyslipidemia, macular degeneration, GI bleed, hypoalbuminemia, knee cellulitis, type 2 diabetes, parkinson's disease, and HTN. All medications in patient's chart were reviewed. O: VS: BP 139/79, P 116, RR 20, T 97.8F W 77.649 kg, HT 165.1 cm, Scr= 1.3, CrCl= 33.7 ml/min A: No cultures pending P: Patient is on Aztreonam 1g iv q8h. Vancomycin ordered for pharmacy to dose. Start Vancomycin 1g IV Q24H. Vancomycin trough is drawn before the 4th dose on April 03, 2019 at 15:30. Vancomycin goal trough is between 15-20 mcg/ml. Pharmacy will follow and or advise on antibiotics use as needed.
--- NOTE | 2019-04-01 10:18 | NUR ---
LAB AT BEDSIDE FOR TYPE AND SCREEN.
--- NOTE | 2019-04-01 10:44 | NUR ---
DAUGHTER FLEX PHONED FOR UPDATE. UPDATE PROVIDED.
--- NOTE | 2019-04-01 10:55 | NUR ---
PT TO RADIOLOGY VIA WHEELCHAIR FOR PICC LINE PLACEMENT.
--- NOTE | 2019-04-01 11:45 | NUR ---
PT RETURNED FROM RADIOLOGY VIA WHEELCHAIR. PT ASSISTED TO CHAIR AT THIS TIME TO SIT UP FOR NOON MEAL AT THIS TIME. PICC TO SAL NOTED TO BE PATENT AT THIS TIME.
--- NOTE | 2019-04-01 12:00 | NUR ---
CONSENT OBTAINED FOR BLOOD AND/OR BLOOD PRODUCTS.
--- NOTE | 2019-04-01 12:25 | NUR ---
PT ASSISTED TO BSC AT THIS TIME.
--- NOTE | 2019-04-01 12:45 | NUR ---
PT ASSISTED BACK TO BED AT THIS TIME.
--- NOTE | 2019-04-01 12:52 | NUR ---
BLOOD STARTED PER TRANSFUSION CHARTING.
--- NOTE | 2019-04-01 16:00 | NUR ---
PT RESTING IN BED. PT SEEMS TO BE AGITATED AT TIMES THEN SEEMS TO REST AT TIMES. PT IS ALERT AND ORIENTED X3. HOWEVER HAS PERIODS OF CONFUSION. CALL LIGHT IN REACH. WILL CONTINUE TO MONIOTR.
--- NOTE | 2019-04-01 17:30 | NUR ---
PT ASSISTED TO CHAIR AT THIS TIME/
--- NOTE | 2019-04-01 18:00 | NUR ---
PT SET UP FOR PM MEAL
--- NOTE | 2019-04-01 18:50 | NUR ---
RECEIVED REPORT FROM JERRY GOSS. PT SITTING UP IN CHAIR.
--- NOTE | 2019-04-01 19:15 | NUR ---
PT SITTING UP IN CHAIR, AWAKE AND ALERT.
--- NOTE | 2019-04-01 19:50 | NUR ---
PT TRANSFERRED FROM CHAIR TO BSC. PT WITH BLACK STOOL.
--- NOTE | 2019-04-01 20:16 | NUR ---
PT ASSISTED TO BED.
--- NOTE | 2019-04-01 22:00 | NUR ---
PT AWAKE AND ALERT IN BED. RESP EVEN AND UNLABORED. CALL URIAS IN REACH.
--- NOTE | 2019-04-01 23:35 | NUR ---
PT ATTEMPTING TO GET OUT OF BED. PT INCONT STOOL.
--- NOTE | 2019-04-01 23:45 | NUR ---
PT CLEANED, LINEN CHANGED, RETURNED TO BED. NO OTHER NEEDS AT THIS TIME. CALL URIAS IN REACH.
[2019-04-02] VITALS (12 sets, daily range): BP systolic 111–151; BP diastolic 54–92
--- NOTE | 2019-04-02 01:53 | NUR ---
PT ASSISTED TO BEDSIDE COMMODE.
--- NOTE | 2019-04-02 02:00 | NUR ---
PT AWAKE AND ALERT. PT TALKING TO SELF REACHING OUT. ORIENTATIION PROVIDED. CALL URIAS IN REACH.
--- NOTE | 2019-04-02 04:00 | NUR ---
PT AWAKE AND ALERT, TALKING TO SELF. PROVIDED ORIENTATION. CALL URIAS IN REACH.
[2019-04-02 05:24] LABS: HEMATOCRIT 30.1 % (37.0-47.0); HEMOGLOBIN 9.2 g/dl (12.0-16.0); MEAN CORPUSCULAR HGB CONC 30.6 g/L CALC (32.0-36.0); RED BLOOD COUNT 3.17 mill/uL (4.20-5.60); RED CELL DISTRI WIDTH 15.2 % (11.5-15.5)
[2019-04-02 05:53] LABS: CREATININE 1.4 mg/dL (0.5-1.0); MAGNESIUM 1.9 mg/dL (1.6-2.3); POTASSIUM 3.9 mmol/l (3.5-5.1)
--- NOTE | 2019-04-02 06:00 | NUR ---
PT INCONT STOOL IN BED. RUBBER CUTTER AT BEDSIDE.
--- NOTE | 2019-04-02 07:40 | NUR ---
PT RESTING IN BED AWAKE. PT IS ALERT AND ORIENTED TO SELF ONLY AT THIS TIME. SHIFT ASSESSMENT COMPLETED AT THIS TIME. IV PATENT X1. PATIENT ASSISTED TO CHAIR FOR AM MEAL AT THIS TIME. CALL LIGHT IN REACH. WILL CONTINUE TO MONITOR.
--- NOTE | 2019-04-02 09:00 | NUR ---
PT ASSISTED BACK TO BED AT THIS TIME. CALL LIGHT IN REACH. WILL CONTINUE TO MONITOR.
--- NOTE | 2019-04-02 10:00 | NUR ---
PT RESTING IN BED AWAKE. RESP ARE EVEN AND UNLABORED. NO DISTRESS NOTED. CALL LIGHT IN REACH. WILL CONTINUE TO MONITOR.
--- NOTE | 2019-04-02 11:30 | NUR ---
PT SET UP FOR NOON MEAL.
--- NOTE | 2019-04-02 12:20 | NUR ---
PT RESTING IN BED WATCHING TV. RESP ARE EVEN AND UNLABORED. NO DITRESS NOTED. CALL LIGHT IN REACH. WILL CONTINUE TO MONITOR.
--- NOTE | 2019-04-02 13:56 | NUR ---
DANIKA FROM [facility] AT BEDSIDE WITH CASE MANAGEMENT AT BEDSIDE.
--- NOTE | 2019-04-02 16:00 | NUR ---
PT SITTING UP IN CHAIR AT BEDSIDE AT THIS TIME. RESP ARE EVEN AND UNLABORED. NO DISTRESS NOTED. CALL LIGHT IN REACH. WILL CONTINUE TO MONITOR.
--- NOTE | 2019-04-02 17:17 | NUR ---
PT [employer] SERVICE SPRAY SUPERVISOR LIGHT THIS ASSOCIATE PROFESSOR OF THEATRE INTO ROOM AND STATES "WHAT TIME IS IT?" THIS ASSOCIATE PROFESSOR OF THEATRE REPLIES 5:20" PATIENT REPLIES "WELL I AM GETTING TIRED [facility] INQUIRED ON QHAT PATIENT MEANT. PT STATES " I WAS TOLD DINNER WOULD BE SERVE AT 5PM". EXPLAINED TO PATIENT THAT THIS IS A HOSPITAL AND DINNER IS SERVED BETWEEN 530 AND 6 USUALLY BUT TIMES CAN VARY PT VERBALIZED UNDERSTANDING.,
--- NOTE | 2019-04-02 17:27 | NUR ---
PT SET UP FOR EVENING MEAL
--- NOTE | 2019-04-02 19:35 | NUR ---
PATIENT LAYS WITH HOB NEAR 30 DEGREES. IS DROWSY, IS ABLE TO STAY AWAKE TO ANSWER QUESTIONS AND FOLLOWS COMMANDS. ON 3.5 L/MIN NC. DOES BECOME SOB WITH EXERTION. IS ABLE TO TURN FROM SIDE TO SIDE. ALVAREZ CATH INTACT. DOUBLE LUMEN SAL PICC INTACT, FLUSHES, RETURNS BLOOD, SALINE LOCKED. POC FOR TONIGHT DISCUSSED. PT ISALERT AND ORIENTED TO NAME, , AND CURRENT DATE, THINKS SHE IS AT HOME, PATIENT REORIENTED. CALL LIGHT WITHIN REACH.
--- NOTE | 2019-04-02 21:31 | NUR ---
PATIENT ABLE TO TOLERATE HER BEDTIME MEDS WITH APPLESAUCE AND SIPS OF COLA. SITS WITH HOB ABOUT 45 DEGREES, CANNOT TOLERATE SITTING UP HIGHER. IS ABLE TO FEED HERSELF. DOES HAVE A PRODUCTIVE COUGH NOW, YELLOW, THICK PHLEGM.
--- NOTE | 2019-04-02 22:52 | NUR ---
PATIENT IS CONFUSED, ASKS CONFUSED QUESTIONS. PATIENT REORIENTED. LAYS WITH HOB NEAR 30 DEGREES. NO ACUTE DISTRESS SHOWN. CALL LIGHT WITHIN REACH.
[2019-04-03] VITALS (12 sets, daily range): BP systolic 105–150; BP diastolic 52–87
--- NOTE | 2019-04-03 02:50 | NUR ---
PATIENT IS AWAKE AT TIMES, YELLS ALOUD AT TIMES, CONFUSED. CALL LIGHT WITHIN REACH.
--- NOTE | 2019-04-03 04:35 | NUR ---
PATIENT IS AWAKE, CONFUSED. IS MOVING AROUND IN BED, THROWS THE COVERS AROUND. CALL LIGHT WITHIN REACH.
[2019-04-03 05:45] LABS: HEMATOCRIT 29.6 % (37.0-47.0); HEMOGLOBIN 8.8 g/dl (12.0-16.0); MEAN CELL VOLUME 95.8 fL CALC (80.0-100.0); MEAN CORPUSCULAR HGB 28.5 pG CALC (26.0-32.0); MEAN CORPUSCULAR HGB CONC 29.7 g/L CALC (32.0-36.0); RED BLOOD COUNT 3.09 mill/uL (4.20-5.60); RED CELL DISTRI WIDTH 15.2 % (11.5-15.5)
--- NOTE | 2019-04-03 06:07 | NUR ---
PATIENT WAS OFFERED A BED BATHE AND SHE REFUSES, PATIENT WAS PULLED UP, HOB NEAR 45 DEGREES, NOW TAKING HER PILLS IN APPLESAUCE. NO ACUTE DISTRESS SHOWN.
[2019-04-03 06:15] LABS: CREATININE 1.3 mg/dL (0.5-1.0); MAGNESIUM 1.8 mg/dL (1.6-2.3); POTASSIUM 3.6 mmol/l (3.5-5.1)
--- NOTE | 2019-04-03 06:45 | NUR ---
RECIEVED REPORT FROM WOLFGANG ANDERSON. ASSUMED PT CARE.
--- NOTE | 2019-04-03 07:20 | NUR ---
PT ASSISTED TO BSC, PT TOLERATED WELL. PT A&OX3, ABLE TO MAKE NEEDS KNOWN. RESPIRATIONS EVEN/UNLABORED, SOB WITH EXERTION NOTED, PT REMAINS ON 3.5LPM VIA NC , RT ADDED HUMIDIFIER FOR COMFORT. PT ABDMEN SOFT NON-TENDER, MODER SOFT, BLK BM NOTED. SPECIMEN OBTAINED AND SENT TO LAB. PT STATED GENERILIZED PAIN/DISCOMFORT, DECLINED MEDICATION. PT SITTING UP IN RECLINER, CALL LIGHT IN REACH. WILL MONITOR.
--- NOTE | 2019-04-03 07:30 | NUR ---
DIETARY ON UNIT, BREAKFAST TRAY SET UP.
--- NOTE | 2019-04-03 08:15 | NUR ---
DR. AYERS AT BEDSIDE FOR ASSESSMENT AND TO DISCUSS PLAN OF CARE. NEW ORDERS RECIEVED. CALL LIGHT IN REACH. WILL MONITOR.
--- NOTE | 2019-04-03 09:30 | NUR ---
PT ASSISTED TO BSC, SM BM. THEN BACK TO RECLINER. CALL LIGHT IN REACH. WILL MONITOR.
--- NOTE | 2019-04-03 10:30 | NUR ---
PT RESTING IN RECLINER WITH EYES CLOSED. RESPIRATIONS EVEN/UNLABORED. OFFERS NO COMPLAINTS AT THIS TIME. WILL MONITOR.
--- NOTE | 2019-04-03 12:13 | NUR ---
PT RESTING IN RECLINER, RESPIRATIONS EVEN/UNLABORED. PT OFFERS NO COMPLAINTS AT THIS TIME.
--- NOTE | 2019-04-03 13:59 | NUR ---
PT NOTED GAGGING IN BED, PT DENIES NAUSEA, STATED "I FEEL LIKE I HAVE A HEAVY FILM IN MY MOUTH." PT OFFERED MOUTH CARE AND ACCEPTED. PT RESTING IN BED AT THIS TIME. CALL LIGHT IN REACH. STATED AFTER MOUTH CARE, SOME RELIEF. WILL MONITOR.
--- NOTE | 2019-04-03 15:30 | NUR ---
VANCO TROUGH DRAWN FROM PICC. PT TOLERATED WELL, FLUSHED SITE.
--- NOTE | 2019-04-03 16:26 | NUR ---
PT RESTING IN BED WITH EYES CLOSED, RESPIRATIONS EVEN/UNLABORED. CALL LIGHT IN REACH. WILL MONITOR.
--- NOTE | 2019-04-03 18:00 | NUR ---
PT FAMILY AT BEDSIDE FOR VISIT.
--- NOTE | 2019-04-03 19:10 | NUR ---
REPORT GIVEN BY GUANACO GOSS. PATIENT RESTING IN BED. RESP EVEN AND UNLABORED, 3L O2 VIA NC. NO S/S OF DISTRESS NOTED. ALVAREZ DRAINING CLOUDY YELLOW URINE. PICC SAL QURESHI. PLAN OF CARE DISCUSSED. PATIENT INFORMED TO CALL WITH ANY QUESTIONS OR CONCERNS. FALL PRECAUTIONS IN PLACE. ASSESMENT COMPLETE AT THIS TIME.
--- NOTE | 2019-04-03 21:18 | NUR ---
DRESSING APPLIED TO SKIN TEAR ON LFA
--- NOTE | 2019-04-03 23:50 | NUR ---
PATIENT UP TO [facility], SHE HAD A SMALL BM.
[2019-04-04] VITALS (9 sets, daily range): BP systolic 103–147; BP diastolic 56–87
--- NOTE | 2019-04-04 01:55 | NUR ---
PATIENT RESTING WITH EYES CLOSED. RESP EVEN AND UNLABORED. NO S/S OF DISTRESS NOTED.
--- NOTE | 2019-04-04 04:00 | NUR ---
PATIENT RESTING WITH EYES CLOSED. RESP EVEN AND UNALBORED. NO S/S OF DISTRESS NOTED.
--- NOTE | 2019-04-04 06:45 | NUR ---
RECIEVED REPORT FROM WOLFGANG WOLFE. ASSUMED PT CARE.
[2019-04-04 06:48] LABS: HEMATOCRIT 29.6 % (37.0-47.0); HEMOGLOBIN 8.9 g/dl (12.0-16.0); MEAN CELL VOLUME 95.8 fL CALC (80.0-100.0); MEAN CORPUSCULAR HGB 28.8 pG CALC (26.0-32.0); MEAN CORPUSCULAR HGB CONC 30.1 g/L CALC (32.0-36.0); RED BLOOD COUNT 3.09 mill/uL (4.20-5.60)
[2019-04-04 07:15] LABS: CREATININE 1.1 mg/dL (0.5-1.0); POTASSIUM 3.5 mmol/l (3.5-5.1)
--- NOTE | 2019-04-04 08:00 | NUR ---
PT ALERT, ABLE TO MAKE NEEDS KNOWN, RESPIRATIONS EVEN/UNLABORED, SA02@95%. PT REMAINS AFIB ON TELEMETRY, HR 114. PT DENIES CP, SOB OR DISTRESS AT THIS TIME. PT STATES SHE DID NOT SLEEP WELL LAST NIGHT. PT ASSISTED TO RECLINER, BREAKFAST TRAY SET UP, ALVAREZ PATENT, DRAINING TO BSD VIA GRAVITY. CALL LIGHT IN REACH. WILL MONITOR.
--- NOTE | 2019-04-04 10:00 | NUR ---
PT HAD FAMILY AT [facility], PT RESTING IN RECLINER WITH EYES CLOSED, OFFERS NO COMPLAINTS AT THIS TIME, PT FAMILY LEFT.
--- NOTE | 2019-04-04 11:15 | NUR ---
DR. AYERS AT BEDSIDE FOR ASSESSMENT AND TO DISCUSS PLAN OF CARE. NEW ORDERS RECIEVED.
--- NOTE | 2019-04-04 12:14 | NUR ---
PT SITTING IN RECLINER WITH EYES CLOSED. RESPIRATIONS EVEN, UNLABORED. SA02@94% ON 3.5LPN VIA NC. CALL LIGHT IN REACH. WILL MONITOR.
--- NOTE | 2019-04-04 13:57 | NUR ---
REPORT CALLED TO WOLFGANG KEYES. PT TO BE TRANSFERRED TO MS BED 260.
--- NOTE | 2019-04-04 13:59 | NUR ---
PT TRANSFERRED TO IN ROOM 260 VIA , PT SON AT SIDE. PT TOLERATED TRANSFER WELL.
--- NOTE | 2019-04-04 15:12 | NUR ---
REPORT RECEIVED FROM GUANACO IN ICU, PT ARRIVED ON UNIT @ 1412 TRANSPORTED VIA W/C BY ICU STAFF. ALERT AND ORIENTED X 4, ORIENTED TO ROOM AND CALL URIAS, TELE MONITOR IN PLACE, O2 @ 2.5L VIA NC IN PLACE, ALVAREZ CATHETER IN PLACE WITH CLEAR YELLOW URINE. SETTLED IN ROOM IN RECLINER, CALL UIRAS IN REACH.
--- NOTE | 2019-04-04 18:30 | NUR ---
SITTING UP IN RECLINER, DINKEY ENGINEER REPORTED HR @ 130'S-160'S, ON ASSESSMENT, PT IS EATING, STATES SHE EXPERIENCES RAPID HR FROM TIME TO TIME SHE HAS A-FIB. NO SIGN DISTRESS OBSERVED, SHE CONTINUES TO EAT MEAL.
--- NOTE | 2019-04-04 21:02 | NUR ---
PT MEDICATED ORDERS PROVIDE. IV ANTIBIOTIC THERAPY RUNNING AT THIS TIME. PT ASSESSEMENT COMPLETED AT THIS TIME. PT WAS SLEEPING SOUNDLY, BUT AWOKE TO MY VOICE. NO S/O DISTRESS NOTED AT THIS TIME. CALL LIGHT W/IN REACH AND PT ENCOURAGED TO CALL NEEDS ARISE.
[2019-04-05] VITALS (7 sets, daily range): BP systolic 104–147; BP diastolic 59–81
--- NOTE | 2019-04-05 02:33 | NUR ---
PT SLEEPING, LIGHTS ARE OFF AND TV ON. NO S/O DISTRESS NOTED, CALL LIGHT AT SIDE.
[2019-04-05 05:48] LABS: HEMATOCRIT 30.3 % (37.0-47.0); MEAN CELL VOLUME 95.9 fL CALC (80.0-100.0); MEAN CORPUSCULAR HGB 28.5 pG CALC (26.0-32.0); MEAN CORPUSCULAR HGB CONC 29.7 g/L CALC (32.0-36.0); RED BLOOD COUNT 3.16 mill/uL (4.20-5.60); RED CELL DISTRI WIDTH 14.9 % (11.5-15.5)
[2019-04-05 06:09] LABS: CREATININE 1.2 mg/dL (0.5-1.0); POTASSIUM 3.5 mmol/l (3.5-5.1)
--- NOTE | 2019-04-05 06:16 | NUR ---
PT MEDICATED ORDERS PROVIDE. TISSUES PROVIDE PER REQUEST. DENIES ANY OTHER NEEDS AT THIS TIME. IV ANTIBIOTIC THERAPY IS RUNNING TO PICC IN [facility].
--- NOTE | 2019-04-05 08:01 | NUR ---
PATIENT A/OX4, NO C/O PAIN, NO S/S RESP DISTRESS, PATIENT ON O2 VIA NC, PATIENT HEAD OF ELEVATED, PATIENT ONE PERSON ASSIST WITH WALKER, PATIENT YELLOW URINE DRAINING INTO ALVAREZ, PATIENT HEART RHYTHM IS AFIB CONTROLLED, WILL CONTINUE TO MONITOR PATIENT CALL LIGHT WITHIN REACH
--- NOTE | 2019-04-05 12:01 | NUR ---
PATIENT A/O X4, NO C/O PAIN, NO S/S RESP DISTRESS, PATIENT ON O2 VIA NC, PATIENT IS O2 DEPENDENT, PATIENT HEART RHYTHM IS AFIB CONTROLLED, WILL CONTINUE TO MONITOR PATIENT CALL LIGHT WITHIN REACH
--- NOTE | 2019-04-05 16:30 | NUR ---
PATIENT A/OX 4, NO C/O PAIN, NO S/S RESP DISTRESS, PATIENT ON O2 VIA NC, PATIENT BLOOD GLUCOSE 121 NO REGULAR INSULIN PER SLIDING SCALE, PATIENT TOLERATING ANTIBOTICS, CLEAR YELLOW URINE DRAINING INTO ALVAREZ, WILL CONTINUE TO MONITOR, CALL LIGHT WITHIN REACH
--- NOTE | 2019-04-05 19:30 | NUR ---
PATIENT RESTING IN BED WITH EYES CLOSED. RESP ARE EVEN AND UNLABORED. TELE MONITOR IN PLACE. ALVAREZ CATH PATENT AND DRAING YELLOW URINE. O2 VIA NASAL CANNULA IN PLACE. COLOR IS PALE. SKIN IS WARM AND DRY. CALL LIGHT IN REACH. WILL CONT TO MONITOR.
--- NOTE | 2019-04-05 21:00 | NUR ---
PATIENT RESTING IN BED-ATE LITTLE OR NO DINNER. AWAKE ALERT AND ORIENTEDX3. ACCU-CHECK WAS 141-NO COVERAGE REQUIRED. DRESSING TO LEFT FOREARM IS CDI SECURED WITH COBAN. RIGHT UPPERARM PICC INTACT. ATTEMPTED TO FLUSH PURPLE PORT-MET WITH RESISTANCE. RED PORT PATENT AND FLUSHES FREELY/GOOD BLOOD RETURN. CALL LIGHT IN REACH. WILL CONT TO MONITOR.
[2019-04-06] VITALS (7 sets, daily range): BP systolic 106–138; BP diastolic 59–82
--- NOTE | 2019-04-06 01:17 | NUR ---
PATIENT RESTING IN BED WITH HOB SLIGHTLY ELEVATED WITH EYES CLOSED AND O2 VIA NASAL CANNULA IN PLACE. RESP ARE EVEN AND UNLABORED AT THIS TIME. TELE MONITOR IN PLACE. ALVAREZ PATENT AND DRAINING YELLOW URINE. CALL LIGHT IN REACH. WILL CONT TO MONITOR.
--- NOTE | 2019-04-06 04:30 | NUR ---
PATIENT RESTING IN BED WITH O2 VIA NASAL CANNULA IN PLACE. LAB WORK DRAWN FROMRED PORT OF DOUBLE LUMEN PICC. FLUSHED PER PROTOCOL. CALL LIGHT IN REACH. WILL CONT TO MONITOR.
[2019-04-06 04:48] LABS: HEMATOCRIT 27.6 % (37.0-47.0); HEMOGLOBIN 8.3 g/dl (12.0-16.0); MEAN CELL VOLUME 96.2 fL CALC (80.0-100.0); MEAN CORPUSCULAR HGB 28.9 pG CALC (26.0-32.0); MEAN CORPUSCULAR HGB CONC 30.1 g/L CALC (32.0-36.0); RED BLOOD COUNT 2.87 mill/uL (4.20-5.60); RED CELL DISTRI WIDTH 14.8 % (11.5-15.5)
[2019-04-06 05:10] LABS: CREATININE 1.2 mg/dL (0.5-1.0); POTASSIUM 3.3 mmol/l (3.5-5.1)
--- NOTE | 2019-04-06 07:30 | NUR ---
PATIENT A/OX4, NO C/O PAIN, NO S/S RESP DISTRESS, PATIENT ON O2 VIA NC, PATIENT HEART RHYTHM IS AFIB CONTROLLED, PATIENT UP IN CHAIR, PATIENT IS ONE PERSON ASSIST WITH TRANSFER FROM THE BED TO CHAIR, PATIENT HAS CLEAR YELLOW URINE DRAINING IN ALVAREZ WITHOUT COMPLICATION, CATHETER CARE PROVIDED, PATIENT BLOOD GLUCOSE 105, PATIENT LAST BOWEL MOVEMENT 04/06/19, WILL CONTINUE TO MONITOR PATIENT, CALL LIGHT WITHIN REACH
--- NOTE | 2019-04-06 12:10 | NUR ---
PATIENT A/OX4, NO C/O PAIN, NO S/S RESP DISTRESS, PATIENT ON O2, PATIENT BLOOD GLUCOSE 159 TREATED INSULIN GIVEN TO PATIENT PER SLIDING SCALE, PATIENT HEART RHYTHM IS AFIB CONTROLLED, WILL CONTINUE TO MONITOR PATIENT, CALL LIGHT WITHIN REACH
--- NOTE | 2019-04-06 18:15 | NUR ---
PATIENT A/OX4, NO C/O PAIN, NO S/S RESP DISTRESS, PATIENT ON O2 VIA NC, PATIENT LAST BLOOD GLUCOSE 135, PATIENT HEART RHYTHM IS AFIB CONTROLLED, REMOVED PATIENT ALVAREZ CATHETER PER MD ORDER PATIENT NO DISCOMFORT OR COMPLICATION WITH ALVAREZ CATH REMOVAL, WILL CONTINUE TO MONITOR, CALL LIGHT WITHIN REACH
--- NOTE | 2019-04-06 19:00 | NUR ---
RECEIVED REPORT FROM NURSE SPRINGER PATIENT APPEARS TO BE SLEEPING WITH EYES CLOSED, CALL LIGHT AT REACH
--- NOTE | 2019-04-06 21:00 | NUR ---
PATIENT ALERT ORIENTED ABLE TO MAKE NEEDS KNOWN, WITH PICC LINE ON SAL PATENT FLUSHES WELL, REMAINS ON TELE AFIB 98, LBM 04/05, ALVAREZ REMOVED AT 1850, DID NOT VOID YET PATIENT REMAINS ON FLUID RESTRICTION 1500 REINFORCED, O2 @ 2LPM VIA NC, WITH SHALLOW, UNLABORED RESPIRATION, CALL LIGHT AT REACH.
--- NOTE | 2019-04-07 02:47 | NUR ---
PATIENT RESTING IN BED WITH EYES CLOSEED, REMAINS ON O2 @ 2LPM VIA NC, EVEN UNLABORED BREATHING CALL LIGHT AT REACH.
[2019-04-07 03:40] VITALS: BP 127/74
--- NOTE | 2019-04-07 05:16 | NUR ---
PATIENT APPEARS TO BE SLEEPING SHALLOW UNLABORED RESPIRATION, CALL LIGHT AT REACH.
--- NOTE | 2019-04-07 07:44 | NUR ---
REPORT RECEIVED FROM WOLFGANG BREWSTER. PT SITTING UP IN CHAIR; ALERT AND ORIENTED X 3. DENIES PAIN, BUT DOES C/O SOB AND MILD NAUSEA. BREAKFAST DELIVERED, BUT PT REPORTS POOR APETITE. RESPIRATIONS SHALLOW, EVEN, AND UNLABORED ON OXYGEN 2L VIA NC. DIMINISHED BASES AND CLEAR THROUGHOUT. SCATTERED ECCHYMOSIS TO ALL EXTREMITIES; COBAN BANDAGE TO LFA FOR SKIN TEAR. HEART RATE IRREGULAR; AFIB ON TELEMETRY. SAL PICC LINE APPEARS HEALTHY AND FLUSHES WITH GOOD BLOOD RETURN; DRESSING CDI. PLAN OF CARE REVIEWED. PT ENCOURAGED TO VERALIZE CONCERNS. STATES UNDERSTANDING. SAFETY MEASURES IN PLACE. CALL LIGHT WITHIN REACH.
[2019-04-07 08:00] VITALS: BP 125/72
--- NOTE | 2019-04-07 08:45 | NUR ---
DR. AYERS AT BEDSIDE.
[2019-04-07] MEDS ORDERED: METOPROLOL TART75 MG PO (09:45)
[2019-04-07] MEDS ORDERED: DOXYCYCL HYC100 MG PO (09:45)
[2019-04-07] MEDS ORDERED: ASPIRIN ADULT L81 M2 PO (09:45)
[2019-04-07] MEDS ORDERED: XANAX0.25 MG PO (09:58)
--- NOTE | 2019-04-07 10:13 | NUR ---
FAMILY AND VISITORS AT BEDSIDE. PT DROWSY AND SLEEPING ON AND OFF IN CHAIR.
--- NOTE | 2019-04-07 10:26 | NUR ---
PHYSICAL THERPAY AT BEDSIDE.
[2019-04-07 11:15] VITALS: BP 140/73
--- NOTE | 2019-04-07 12:30 | NUR ---
PT CONTINUES TO C/O SOME NAUSEA AND LITTLE APETITE. NO C/O PAIN. REPOSITINED BACK INTO BED. USES CALL LIGHT; STAND BY ASSIST TO BSC.
--- NOTE | 2019-04-07 13:37 | NUR ---
PT RESTING IN BED ON RIGHT SIDE WITH FAMILY MEMBER AT BEDSIDE. AZACTAM INFUSING WITHOUT DIFFICULTY.
--- NOTE | 2019-04-07 14:13 | NUR ---
PICC LINE REMOVED AND INTACT; PT TOLERATED WELL. DRESSED WITH 2X2 AND TEGADERM.
--- NOTE | 2019-04-07 15:41 | NUR ---
Discharge instructions given. Patient verbalizes understanding of same. [facility]charged [facility] stable [facility]. All belongings sent with pt.
== END 2019-04-07 15:30 | DRG 291 ==
LOC: ED-I 13:17 → ED 13:17 → ED-I 16:50 → ED 17:13 → ICU 17:14 → MS2 04-04 13:59
PROVIDERS: Family Medicine; Nurse Practitioner Family; ADMIT Internal Medicine; ATTEND Internal Medicine
PROC: 30233N1 Transfusion of Nonautologous Red Blood Cells into Peripheral Vein, Percutaneous Approach (ICD-10-PCS; principal; 2019-04-01)
PROC: 02HV33Z Insertion of Infusion Device into Superior Vena Cava, Percutaneous Approach (ICD-10-PCS; 2019-04-01)
PROC: B518ZZA Fluoroscopy of Superior Vena Cava, Guidance (ICD-10-PCS; 2019-04-01)
DX: I13.0 Hypertensive heart and chronic kidney disease with heart failure and stage 1 through stage 4 chronic kidney disease, or unspecified chronic kidney disease (principal); J18.9 Pneumonia, unspecified organism; J96.21 Acute and chronic respiratory failure with hypoxia; I50.33 Acute on chronic diastolic (congestive) heart failure; J44.0 Chronic obstructive pulmonary disease with (acute) lower respiratory infection; I48.20 Chronic atrial fibrillation, unspecified; K80.10 Calculus of gallbladder with chronic cholecystitis without obstruction; E11.22 Type 2 diabetes mellitus with diabetic chronic kidney disease; N18.3 Chronic kidney disease, stage 3 (moderate); I25.10 Atherosclerotic heart disease of native coronary artery without angina pectoris; D63.1 Anemia in chronic kidney disease; G20 Parkinson's disease; E03.9 Hypothyroidism, unspecified; I25.2 Old myocardial infarction; Z86.73 Personal history of transient ischemic attack (TIA), and cerebral infarction without residual deficits; Z99.81 Dependence on supplemental oxygen; Z95.5 Presence of coronary angioplasty implant and graft; Z87.891 Personal history of nicotine dependence; Z95.1 Presence of aortocoronary bypass graft
CPT/HCPCS: J0692; P9016; Q9967